=== PATIENT | male | born 1985 | race Caucasian/White ===

== ENCOUNTER 2016-11-03 11:18 | Inpatient (IN) | payer OTHER ==
[2016-11-03 11:33] VITALS: BMI 17.6
--- NOTE | 2016-11-03 14:54 | HP ---
COWS - Scale Resting Pulse: 2= MO 101-120 Sweatin= Chills/Flushing Restless Observation: 3= Extraneous Movement Pupil Size: 1= Pupils >than Normal Bone or Joint Aches: 1= Mild Discomfort Runny Nose/ Eye Tearin= Nasal Congestion GI Upset > 30mins: 1= Stomach Cramp Tremor Observation: 1= Tremor [place], Not Seen Yawning Observation: 0= None Anxiety or Irritability: 2=Irritable/Anxious Goose Flesh Skin: 0=Smooth Skin COWS Score: 13 CIWA Score - CIWA Score Nausea/Vomitin Muscle Tremors: 2 Anxiety: 4-Mod. Anxious/Guarded Agitation: 4-Moderately Restless Paroxysmal Sweats: 3 Orientation: 0-Oriented Tacttile Disturbances: 1-Very Mild Itch/Numbness Auditory Disturbances: 0-None Visual Disturbances: 0-None Headache: 0-None Present CIWA-Ar Total Score: 16 Admission ROS BHS - HPI Chief Complaint: I need to stop using heroin and i need help. Allergies/Adverse Reactions: Allergies Allergy/AdvReac Type Severity Reaction Status Date / Time No Known Allergies Allergy Verified 11/03/16 13:46 History of Present Illness: 30 y/o m pt with a h/o heroin and crack dep using klonopin daily seeking detox. Exam Limitations: No Limitations - Ebola screening Have you traveled outside of the country in the last 21 days: No Have you had contact with anyone from an Ebola affected area: No Have you been sick,other than usual withdrawal symptoms: No - Review of Systems Constitutional: Malaise, Night Sweats, Changes in sleep EENT: reports: Blurred Vision Respiratory: reports: No Symptoms reported Cardiac: reports: Palpitations GI: reports: Indigestion, Abdominal cramping : reports: No Symptoms Reported Musculoskeletal: reports: Muscle Pain Integumentary: reports: No Symptoms Reported Neuro: reports: Headache, Dizziness Endocrine: reports: No Symptoms Reported Hematology: reports: No Symptoms Reported Psychiatric: reports: Anxious Other Systems: Reviewed and Negative Patient History - Patient Medical History Hx Anemia: No Hx Asthma: Yes Hx Chronic Obstructive Pulmonary Disease (COPD): No Hx Cancer: No Hx Cardiac Disorders: No Hx Congestive Heart Failure: No Hx Hypertension: No Hx Hypercholesterolemia: No Hx Pacemaker: No HX Cerebrovascular Accident: No Hx Seizures: No Hx Dementia: No Hx Diabetes: No Hx Gastrointestinal Disorders: No Hx Liver Disease: No Hx Genitourinary Disorders: No Hx Sexually Transmitted Disorders: No Hx Renal Disease (ESRD): No Hx Thyroid Disease: No Hx Human Immunodeficiency Virus (HIV): No Hx Hepatitis C: No Hx Depression: No (anxiety ) Hx Suicide Attempt: No Hx Bipolar Disorder: No Hx Schizophrenia: No - Patient Surgical History Past Surgical History: No Hx Neurologic Surgery: No Hx Cataract Extraction: No Hx Cardiac Surgery: No Hx Lung Surgery: No Hx Breast Surgery: No Hx Breast Biopsy: No Hx Abdominal Surgery: No Hx Appendectomy: No Hx Cholecystectomy: No Hx Genitourinary Surgery: No Hx Section: No Hx Orthopedic Surgery: No Anesthesia Reaction: No - PPD History Previous Implant?: Yes Documented Results: Negative w/o proof Implanted On Prior R Admission?: No PPD to be Administered?: Yes - Reproductive History Patient is a Female of Child Bearing Age (11 -55 yrs old): No - Smoking Cessation Smoking history: Current every day smoker Have you smoked in the past 12 months: Yes Aproximately how many cigarettes per day: 10 Hx Chewing Tobacco Use: No Initiated information on smoking cessation: Yes 'Breaking Loose' booklet given: 11/03/16 - Substance & Tx. History Hx Alcohol Use: No Hx Substance Use: Yes Substance Use Type: Cocaine, Heroin Hx Substance Use Treatment: No - Substances Abused Heroin Route: Inhalation Frequency: Daily Amount used: 8 bags Age of first use: 26 Date of Last Use: 11/02/16 Crack Route: Smoking Frequency: Daily Amount used: $300 Age of first use: 18 Date of Last Use: 11/02/16 klonopin Route: Oral Frequency: Daily Amount used: 2mg Age of first use: 18 Date of Last Use: 11/02/16 Family Disease History - Family Disease History Family History: Denies Admission Physical Exam BHS - Vital Signs Vital Signs: Vital Signs - 24 hr 11/03/16 11:31 Temperature 96 F L Pulse Rate 112 H Respiratory 18 Rate Blood Pressure 130/90 30 y/o m pt anxious , redstless but cooperative with exam. - Physical General Appearance: Yes: Appropriately Dressed, Thin, Irritable, Anxious HEENTM: Yes: EOMI, Hearing grossly Normal, Normocephalic, Normal Voice, CLARA, Nasal Congestion Respiratory: Yes: Chest Non-Tender, Lungs Clear, Normal Breath Sounds, No Respiratory Distress Neck: Yes: Supple, Trachea in good position Breast: Yes: Within Normal Limits Cardiology: Yes: Regular Rhythm, Regular Rate, S1, S2 Abdominal: Yes: Non Tender, Flat, Soft, Increased Bowel Sounds Genitourinary: Yes: Within Normal Limits Back: Yes: Decreased Range of Motion Musculoskeletal: Yes: Back pain, Muscle Pain Extremities: Yes: Within Normal Limits Neurological: Yes: cot assembler II-XII NML intact, Fully Oriented, Alert, Motor Strength 5/5, Normal Response Integumentary: Yes: Moist Lymphatic: Yes: Within Normal Limits - Diagnostic (1) Opioid dependence with withdrawal Current Visit: Yes Status: Chronic (2) Crack cocaine use Current Visit: Yes Status: Acute (3) Benzodiazepine dependence Current Visit: Yes Status: Chronic (4) Cachexia Current Visit: Yes Status: Acute (5) Asthma Current Visit: Yes Status: Chronic Qualifiers: Asthma severity: mild intermittent Asthma complication type: uncomplicated Qualified Code(s): J45.20 - Mild intermittent asthma, uncomplicated (6) Nicotine dependence Current Visit: Yes Status: Chronic (7) Anxiety Current Visit: Yes Status: Chronic Cleared for Admission [facility] - Detox or Rehab [facility] Level of Care: Medically Managed Detox Regimen/Protocol: Methadone/Valium [facility] Breath Alcohol Content Breath Alcohol Content: 0 Urine Drug Screen - Results Drug Screen Negative: No Urine Drug Screen Results: AMINA-Cocaine, OPI-Opiates, MTD-Methadone, TCA- Tricyclic Antidepress, OXY-Oxycodone
[2016-11-03] MEDS ORDERED: IBUPROFEN 400 MG TABLET (FP) PO PRN (15:09)
[2016-11-03] MEDS ORDERED: MAGNESIUM HYDROX 2400MG/30ML ORAL SUSPENSION 30 ML CUP PO PRN (15:09)
[2016-11-03] MEDS ORDERED: guaiFENesin/D-METHORPHAN HB 10 ML UNIT-DOSE CUPS PO PRN (15:09)
[2016-11-03] MEDS ORDERED: MAG HYDROX/AL HYDROX/SIMETH 30 ML UNIT-DOSE CUP PO PRN (15:09)
[2016-11-03] MEDS ORDERED: MAGNESIUM CITRATE 300 ML BOTTLE PO PRN (15:09)
[2016-11-03] MEDS ORDERED: NICOTINE POLACRILEX 4 MG GUM BUC PRN (15:09)
[2016-11-03] MEDS ORDERED: P-EPHED 60MG/TRIPROLIDI 2.5MG TABLET PO PRN (15:09)
[2016-11-03] MEDS ORDERED: ACETAMINOPHEN 325 MG TABLET (FP) PO PRN (15:09)
[2016-11-03] MEDS ORDERED: diphenhydrAMINE HCL 50 MG CAPSULE PO PRN (15:09)
[2016-11-03] MEDS ORDERED: LOPERAMIDE HCL 2 MG CAPSULE PO PRN (15:09)
[2016-11-03] MEDS ORDERED: MENTHOL/PHENOL 1 EACH UD MM PRN (15:09)
[2016-11-03] MEDS ORDERED: ALBUTEROL SO4 6.7 GM HFA INHALER IH PRN (15:14)
[2016-11-03] MEDS ORDERED: METHADONE HCL 10 MG TABLET (FOR DETOX USE ONLY) PO ONE ×2 (15:41→23:00)
[2016-11-03] MEDS ORDERED: diazePAM 5 MG TABLET PO ONE (15:59)
[2016-11-03 17:46] LABS: URINE APPEARANCE CLEAR; URINE BILIRUBIN NEGATIVE (NEGATIVE); URINE BLOOD NEGATIVE (NEGATIVE); URINE COLOR YELLOW; URINE GLUCOSE (UA) NEGATIVE (NEGATIVE); URINE KETONE NEGATIVE (NEGATIVE); URINE LEUK ESTERASE NEGATIVE (NEGATIVE); URINE NITRITE NEGATIVE (NEGATIVE); URINE PROTEIN NEGATIVE (NEGATIVE); URINE UROBILINOGEN NEGATIVE E.U./dl (0.2-1.0)
[2016-11-03] MEDS: THIAMINE HCL 100 MG TABLET (FP) PO SCH (22:42)
[2016-11-03] MEDS: diazePAM 5 MG TABLET PO SCH (22:43)
[2016-11-04] MEDS: diazePAM 5 MG TABLET PO SCH ×3 (05:05→22:52)
[2016-11-04] MEDS ORDERED: METHADONE HCL 10 MG TABLET (FOR DETOX USE ONLY) PO SCH (10:00)
--- NOTE | 2016-11-04 10:07 | PN ---
S CIWA - CIWA Score Nausea/Vomitin Muscle Tremors: 3 Anxiety: 3 Agitation: 2 Paroxysmal Sweats: 1-Minimal Palms Moist Orientation: 0-Oriented Tacttile Disturbances: 1-Very Mild Itch/Numbness Auditory Disturbances: 1-Very Mild Visual Disturbances: 1-Very Mild Sensitivity Headache: 2-Mild CIWA-Ar Total Score: 17 BHS COWS - Scale Resting Pulse: 0= DC 80 or Below Sweatin=Flushed/Facial Moisture Restless Observation: 3= Extraneous Movement Pupil Size: 1= Pupils >than Normal Bone or Joint Aches: 2= Severe Diffuse Aches Runny Nose/ Eye Tearin= Runny Nose/Eyes GI Upset > 30mins: 3= Vomiting/Diarrhea Tremor Observation of Outstretched Hands: 2= Slight Tremor Visible Yawning Observation: 1= 1-2x During Session Anxiety or Irritability: 2=Irritable/Anxious Goose Flesh Skin: 0=Smooth Skin COWS Score: 18 S Progress Note (SOAP) Subjective: ALERT,IRRITABLE,ANXIOUS,INTERRUPTED SLEEP,TREMOR,PAIN IN THE BODY AND BACK Objective: 11/04/16 10:05 Vital Signs Temperature 97.7 F 11/04/16 06:17 Pulse Rate 78 11/04/16 06:17 Respiratory Rate 18 11/04/16 06:17 Blood Pressure 101/58 11/04/16 06:17 O2 Sat by Pulse Oximetry (%) EKG NSR Laboratory Last Values Urine Color Yellow 11/03/16 14:00 Urine Appearance Clear 11/03/16 14:00 Urine pH 5.0 (5.0-8.0) 11/03/16 14:00 Ur Specific [place] 1.027 (1.001-1.035) 11/03/16 14:00 Urine Protein Negative (NEGATIVE) 11/03/16 14:00 Urine Glucose (UA) Negative (NEGATIVE) 11/03/16 14:00 Urine Ketones Negative (NEGATIVE) 11/03/16 14:00 Urine Blood Negative (NEGATIVE) 11/03/16 14:00 Urine Nitrite Negative (NEGATIVE) 11/03/16 14:00 Urine Bilirubin Negative (NEGATIVE) 11/03/16 14:00 Urine Urobilinogen Negative E.U./dl (0.2-1.0) 11/03/16 14:00 Ur Leukocyte Esterase Negative (NEGATIVE) 11/03/16 14:00 LABS PENDING Assessment: 11/04/16 10:06 WITHDRAWAL SYMPTOM Plan: CONTINUE DETOX
[2016-11-04] MEDS: PRENATAL VITAMINS W/ FOLIC ACID TABLET (FP) PO SCH (10:59)
[2016-11-04] MEDS: diazePAM 5 MG TABLET PO PRN ×2 (10:59→17:25)
[2016-11-04 11:23] LABS: MCH 30.9 pg (25.7-33.7); MCHC 32.5 g/dl (32.0-35.9); MEAN CELL VOLUME 95.2 fl (80-96); MEAN PLT VOLUME 9.7 fl (7.5-11.1); PLATELET COUNT 173 K/MM3 (134-434); WHITE BLOOD COUNT 7.4 K/mm3 (4.0-10.0)
--- NOTE | 2016-11-04 11:27 | EKG ---
Test Reason : Blood Pressure : / mmHG Vent. Rate : 087 BPM Atrial Rate : 087 BPM P-R Int : 118 ms QRS Dur : 084 ms QT Int : 342 ms P-R-T Axes : 074 080 077 degrees QTc Int : 411 ms NORMAL SINUS RHYTHM NORMAL ECG NONSPECIFIC T WAVE ABNORMALITY NO PREVIOUS ECGS AVAILABLE Confirmed by ROBRET CHAPARRO MD ([id number]) on 11/04/2016 11:27:14 AM Referred By: Confirmed By:ROBERT CHAPARRO MD
[2016-11-04 11:35] LABS: ALBUMIN 3.9 g/dl (3.4-5.0); ANION GAP 8 (8-16); BILIRUBIN,TOTAL 0.3 mg/dL (0.2-1.0); CALCIUM 8.9 mg/dL (8.5-10.1); CO2 29 mmol/L (21-32); GLUCOSE,RANDOM 100 mg/dL (74-106); SGOT/AST 16 U/L (15-37); TOT PROT 7.1 g/dl (6.4-8.2)
[2016-11-04 11:38] LABS: ALK PHOS 102 U/L (45-117); COCKROFT - GAULT 112.61; CREATININE 0.8 mg/dL (0.7-1.3); SGPT/ALT 30 U/L (12-78)
[2016-11-04 12:05] LABS: HIV 1 & 2 AB NEGATIVE; HIV 1 AGp24 NEGATIVE
--- NOTE | 2016-11-04 16:34 | CONSULT ---
[facility] Psychiatric Consult - Data Date of interview: 11/04/16 Admission source: [facility] Identifying data: First admission to [facility] for this 30 y/o male seeking detox treatment on for heoin,cocaine and sedative/anxiolytic dependence (klonopin).Patient is single,a father of one,domiciled (lives with his mother),unemployed and dependent on relatives for financial support. Substance Abuse History: - Smoking Cessation. Smoking history: Current every day smoker. Have you smoked in the past 12 months: Yes. Aproximately how many cigarettes per day: 10. Hx Chewing Tobacco Use: No. Initiated information on smoking cessation: Yes. 'Breaking Loose' booklet given: 11/03/16. - Substance & Tx. History. Hx Alcohol Use: No. Hx Substance Use: Yes. Substance Use Type : Cocaine, Heroin. Hx Substance Use Treatment: No. - Substances Abused. Heroin. Route: Inhalation. Frequency: Daily. Amount used: 8 bags. Age of first use: 26. Date of Last Use: 11/02/16. Crack. Route: Smoking. Frequency: Daily. Amount used: $300. Age of first use: 18. Date of Last Use: 11/02/16. klonopin. Route: Oral. Frequency: Daily. Amount used: 2mg. Age of first use: 18. Date of Last Use: 11/02/16. Confirmed by patient. Medical History: Bronchial asthma. Psychiatric History: No history of psychiatric hospitalizations.Patient is prescribed seroquel 200 mg/hs by a private psychiatrist[place]in the [place],to address chronic insomnia.Mr Lopez denies history of suicide attempts.He states that he last took this dse of seroquel on 11/03/16. Physical/Sexual Abuse/Trauma History: Patient denies. Additional Comment: Urine Drug Screen Results: AMINA-Cocaine, OPI-Opiates, MTD- Methadone, TCA-Tricyclic Antidepressant, OXY-Oxycodone.Noted. Mental Status Exam - Mental Status Exam Alert and Oriented to: Time, Place, Person Cognitive Function: Good Patient Appearance: Well Groomed Mood: Hopeful, Euthymic Affect: Appropriate, Normal Range Patient Behavior: Fatigued, Appropriate, Cooperative Speech Pattern: Clear, Appropriate Voice Loudness: Normal Thought Process: Goal Oriented Thought Disorder: Not Present Hallucinations: Denies Suicidal Ideation: Denies Homicidal Ideation: Denies Insight/Judgement: Poor Sleep: Poorly, Difficulty falling asleep Appetite: Good Muscle strength/Tone: Normal Gait/Station: Normal Psychiatric Findings - Problem List ([place] 1, 2,3) (1) Opioid dependence with withdrawal Current Visit: Yes Status: Acute (2) Cocaine dependence Current Visit: Yes Status: Acute (3) Benzodiazepine dependence Current Visit: Yes Status: Acute (4) Nicotine dependence Current Visit: Yes Status: Acute (5) Substance induced mood disorder Current Visit: Yes Status: Acute (6) Asthma Current Visit: Yes Status: Chronic Qualifiers: Asthma severity: mild intermittent Asthma complication type: uncomplicated Qualified Code(s): J45.20 - Mild intermittent asthma, uncomplicated (7) Insomnia Current Visit: Yes Status: Acute - Initial Treatment Plan Initial Treatment Plan: Psychoeducation.Detoxification in progress.Medication : seroquel 100 mg po hs (reduced dose).Side effects/benefits discussed with the patient.Agrees with this careplan (verbally).Observation.Medications verified.Noted filled script for seroquel 200 mg/hs @ [facility] # [id number] on 10/27/16 from provider Mia Morel.No script needed at discharge from [facility].
[2016-11-04] MEDS: QUEtiapine FUMARATE 100 MG TABLET (FP) PO SCH (22:52)
[2016-11-04] MEDS: THIAMINE HCL 100 MG TABLET (FP) PO SCH (22:52)
[2016-11-05] MEDS: diazePAM 5 MG TABLET PO PRN (08:10)
[2016-11-05] MEDS: PRENATAL VITAMINS W/ FOLIC ACID TABLET (FP) PO SCH (11:25)
[2016-11-05] MEDS: diazePAM 5 MG TABLET PO SCH ×2 (11:25→22:38)
[2016-11-05] MEDS: METHADONE HCL 5 MG TABLET (FOR DETOX USE ONLY) PO SCH (11:26)
[2016-11-05] MEDS ORDERED: ONDANSETRON *ODT* 4 MG TABLET SL PRN (11:46)
--- NOTE | 2016-11-05 16:48 | PN ---
[facility] CIWA - CIWA Score Nausea/Vomitin-Mild Nausea/No Vomiting Muscle Tremors: 3 Anxiety: 3 Agitation: 2 Paroxysmal Sweats: 3 Orientation: 0-Oriented Tacttile Disturbances: 2-Mild Itch/Numbness/Burn Auditory Disturbances: 2-Mild Harshness/Frighten Visual Disturbances: 0-None Headache: 2-Mild CIWA-Ar Total Score: 18 BHS COWS - Scale Resting Pulse: 1= SC 81-100 Sweatin= Chills/Flushing Restless Observation: 1= Difficult to Sit Still Pupil Size: 0= Normal to Room Light Bone or Joint Aches: 2= Severe Diffuse Aches Runny Nose/ Eye Tearin= Nasal Congestion GI Upset > 30mins: 1= Stomach Cramp Tremor Observation of Outstretched Hands: 2= Slight Tremor Visible Yawning Observation: 1= 1-2x During Session Anxiety or Irritability: 2=Irritable/Anxious Goose Flesh Skin: 3=Piloerection COWS Score: 15 S Progress Note (SOAP) Subjective: Fatigue, H/A, Interrupted sleep, Cold sensation, sweating. Objective: PT. A & O X 3. 11/05/16 16:51 Vital Signs Temperature 98.2 F 11/05/16 14:25 Pulse Rate 93 H 11/05/16 14:25 Respiratory Rate 18 11/05/16 14:25 Blood Pressure 124/69 11/05/16 14:25 O2 Sat by Pulse Oximetry (%) Laboratory Last Values WBC 7.4 K/mm3 (4.0-10.0) 11/04/16 06:00 RBC 4.66 M/mm3 (4.00-5.60) 11/04/16 06:00 Hgb 14.4 GM/dL (11.7-16.9) 11/04/16 06:00 Hct 44.4 % (35.4-49) 11/04/16 06:00 MCV 95.2 fl (80-96) 11/04/16 06:00 MCHC 32.5 g/dl (32.0-35.9) 11/04/16 06:00 RDW 14.0 % (11.9-15.9) 11/04/16 06:00 Plt Count 173 K/MM3 (134-434) 11/04/16 06:00 MPV 9.7 fl (7.5-11.1) 11/04/16 06:00 Sodium 143 mmol/L (136-145) 11/04/16 06:00 Potassium 4.1 mmol/L (3.5-5.1) 11/04/16 06:00 Chloride 106 mmol/L (98-107) 11/04/16 06:00 Carbon Dioxide 29 mmol/L (21-32) 11/04/16 06:00 Anion Gap 8 (8-16) 11/04/16 06:00 BUN 11 mg/dL (7-18) 11/04/16 06:00 Creatinine 0.8 mg/dL (0.7-1.3) 11/04/16 06:00 Creat Clearance w eGFR > 60 (>60) 11/04/16 06:00 Random Glucose 100 mg/dL (74-106) 11/04/16 06:00 Calcium 8.9 mg/dL (8.5-10.1) 11/04/16 06:00 Total Bilirubin 0.3 mg/dL (0.2-1.0) 11/04/16 06:00 AST 16 U/L (15-37) 11/04/16 06:00 ALT 30 U/L (12-78) 11/04/16 06:00 Alkaline Phosphatase 102 U/L (45-117) 11/04/16 06:00 Total Protein 7.1 g/dl (6.4-8.2) 11/04/16 06:00 Albumin 3.9 g/dl (3.4-5.0) 11/04/16 06:00 Urine Color Yellow 11/03/16 14:00 Urine Appearance Clear 11/03/16 14:00 Urine pH 5.0 (5.0-8.0) 11/03/16 14:00 Ur Specific [place] 1.027 (1.001-1.035) 11/03/16 14:00 Urine Protein Negative (NEGATIVE) 11/03/16 14:00 Urine Glucose (UA) Negative (NEGATIVE) 11/03/16 14:00 Urine Ketones Negative (NEGATIVE) 11/03/16 14:00 Urine Blood Negative (NEGATIVE) 11/03/16 14:00 Urine Nitrite Negative (NEGATIVE) 11/03/16 14:00 Urine Bilirubin Negative (NEGATIVE) 11/03/16 14:00 Urine Urobilinogen Negative E.U./dl (0.2-1.0) 11/03/16 14:00 Ur Leukocyte Esterase Negative (NEGATIVE) 11/03/16 14:00 RPR Titer Nonreactive (NONREACTIVE) 11/04/16 06:00 HIV 1&2 Antibody Screen Negative 11/03/16 06:00 HIV P24 Antigen Negative 11/03/16 06:00 LABS NOTED. Assessment: 11/05/16 16:52 WITHDRAWAL SYMPTOMS. Plan: CONTINUE DETOX. ADVISED PATIENT TO FOLLOW-UP WITH ESTHETICIAN / REHAB MEDICAL PROVIDER AFTER DISCHARGE FROM DETOX FOR GENERAL MEDICAL ASSESSMENT AND FOR ABNORMAL ADMISSION LAB VALUES.
[2016-11-05] MEDS: QUEtiapine FUMARATE 100 MG TABLET (FP) PO SCH (22:38)
[2016-11-05] MEDS: THIAMINE HCL 100 MG TABLET (FP) PO SCH (22:38)
[2016-11-06] MEDS: diazePAM 5 MG TABLET PO SCH ×2 (10:56→22:30)
[2016-11-06] MEDS: PRENATAL VITAMINS W/ FOLIC ACID TABLET (FP) PO SCH (10:56)
[2016-11-06] MEDS: METHADONE HCL 5 MG TABLET (FOR DETOX USE ONLY) PO SCH (10:57)
--- NOTE | 2016-11-06 12:29 | PN ---
BHS Progress Note (SOAP) Subjective: Sweating,interrupted sleep,restless Objective: 11/06/16 12:28 Vital Signs - 8 hr 11/06/16 11/06/16 06:00 10:00 Temperature 97.9 F 97.5 F L Pulse Rate 81 107 H Respiratory 18 18 Rate Blood Pressure 103/58 108/60 Laboratory Tests 11/03/16 11/03/16 11/04/16 06:00 14:00 06:00 WBC 7.4 RBC 4.66 Hgb 14.4 Hct 44.4 MCV 95.2 MCHC 32.5 RDW 14.0 Plt Count 173 MPV 9.7 Sodium Potassium Chloride Carbon Dioxide Anion Gap BUN Creatinine Creat Clearance w eGFR Random Glucose Calcium Total Bilirubin AST ALT Alkaline Phosphatase Total Protein Albumin Urine Color Yellow Urine Appearance Clear Urine pH 5.0 Ur Specific [place] 1.027 Urine Protein Negative Urine Glucose (UA) Negative Urine Ketones Negative Urine Blood Negative Urine Nitrite Negative Urine Bilirubin Negative Urine Urobilinogen Negative Ur Leukocyte Esterase Negative RPR Titer HIV 1&2 Antibody Screen Negative HIV P24 Antigen Negative 11/04/16 11/04/16 06:00 06:00 WBC RBC Hgb Hct MCV MCHC RDW Plt Count MPV Sodium 143 Potassium 4.1 Chloride 106 Carbon Dioxide 29 Anion Gap 8 BUN 11 Creatinine 0.8 Creat Clearance w eGFR > 60 Random Glucose 100 Calcium 8.9 Total Bilirubin 0.3 AST 16 ALT 30 Alkaline Phosphatase 102 Total Protein 7.1 Albumin 3.9 Urine Color Urine Appearance Urine pH Ur Specific [place] Urine Protein Urine Glucose (UA) Urine Ketones Urine Blood Urine Nitrite Urine Bilirubin Urine Urobilinogen Ur Leukocyte Esterase RPR Titer Nonreactive HIV 1&2 Antibody Screen HIV P24 Antigen labs noted Assessment: 11/06/16 12:28 Withdrawal sx. Plan: Continue detox
[2016-11-06] MEDS: hydrOXYzine PAMOATE 25 MG CAPSULE (FP) PO PRN (19:28)
[2016-11-06] MEDS: QUEtiapine FUMARATE 100 MG TABLET (FP) PO SCH (22:30)
[2016-11-06] MEDS: THIAMINE HCL 100 MG TABLET (FP) PO SCH (22:30)
[2016-11-07] MEDS ORDERED: METHADONE HCL 10 MG TABLET (FOR DETOX USE ONLY) PO SCH (10:00)
[2016-11-07] MEDS ORDERED: diazePAM 5 MG TABLET PO SCH (10:00)
[2016-11-07] MEDS: PRENATAL VITAMINS W/ FOLIC ACID TABLET (FP) PO SCH (10:11)
--- NOTE | 2016-11-07 11:11 | PN ---
BHS Progress Note (SOAP) Subjective: sweats, shakes Objective: 11/07/16 11:08 Vital Signs Temperature 97.9 F 11/07/16 09:15 Pulse Rate 89 11/07/16 09:15 Respiratory Rate 20 11/07/16 09:15 Blood Pressure 104/74 11/07/16 09:15 O2 Sat by Pulse Oximetry (%) pt aox3 in nad lying in bed Assessment: 11/07/16 11:09 withdrawal sx's Plan: cont detox increase fluids d/c in am
[2016-11-07] MEDS: hydrOXYzine PAMOATE 25 MG CAPSULE (FP) PO PRN (17:35)
[2016-11-07] MEDS: THIAMINE HCL 100 MG TABLET (FP) PO SCH (22:21)
[2016-11-07] MEDS: QUEtiapine FUMARATE 100 MG TABLET (FP) PO SCH (22:21)
[2016-11-08] MEDS ORDERED: METHADONE HCL 5 MG TABLET (FOR DETOX USE ONLY) PO SCH (06:00)
[2016-11-08 06:56] VITALS: BP 89/59; PULSE 94; TEMP 98.1
--- NOTE | 2016-11-08 08:53 | DS ---
[facility] Detox Discharge Summary Admission Date: 11/03/16 Discharge Date: 11/08/16 - History Present History: Cannabis Dependence, Cocaine Dependence, Opioid Dependence, Sedative Dependence - Physical Exam Results Vital Signs: Vital Signs Temperature 98.1 F 11/08/16 06:55 Pulse Rate 94 H 11/08/16 06:55 Respiratory Rate 18 11/08/16 06:55 Blood Pressure 89/59 11/08/16 06:55 O2 Sat by Pulse Oximetry (%) - Treatment Hospital Course: Detox Protocol Followed, Detoxed Safely, Responded well, Discharged Condition Good, Rehab Referral Accepted - Medication Discharge Medications: Ambulatory Orders Albuterol Sulfate Inhaler - [Ventolin Hfa Inhaler -] 2 inh IH Q4H PRN 11/03/16 Clonazepam [Klonopin] 1 mg PO BID 11/03/16 Quetiapine Fumarate [Seroquel -] 200 mg PO HS 11/03/16 - Diagnosis (1) Benzodiazepine dependence Current Visit: Yes Status: Chronic (2) Cachexia Current Visit: Yes Status: Chronic (3) Cocaine dependence Current Visit: Yes Status: Chronic Qualifiers: Substance use status: uncomplicated Qualified Code(s): F14.20 - Cocaine dependence, uncomplicated (4) Crack cocaine use Current Visit: Yes Status: Chronic (5) Insomnia Current Visit: Yes Status: Acute (6) Nicotine dependence Current Visit: Yes Status: Chronic Qualifiers: Nicotine product type: cigarettes Substance use status: uncomplicated Qualified Code(s): F17.210 - Nicotine dependence, cigarettes, uncomplicated (7) Opioid dependence with withdrawal Current Visit: Yes Status: Chronic (8) Substance induced mood disorder Current Visit: Yes Status: Chronic (9) Anxiety Current Visit: Yes Status: Chronic (10) Asthma Current Visit: Yes Status: Chronic Qualifiers: Asthma severity: mild intermittent Asthma complication type: uncomplicated Qualified Code(s): J45.20 - Mild intermittent asthma, uncomplicated - AMA Did Patient Leave Against Medical Advice: No
== END 2016-11-08 09:19 | disposition home or self-care (01) | DRG 773 ==
LOC: YASAS 11:18 → Y6N 14:47
PROVIDERS: ADMIT Internal Medicine Addiction Medicine; ATTEND Internal Medicine Addiction Medicine
PROC: HZ2ZZZZ Detoxification Services for Substance Abuse Treatment (ICD-10-PCS; principal; 2016-11-08)
DX: F11.23 Opioid dependence with withdrawal (principal); F13.230 Sedative, hypnotic or anxiolytic dependence with withdrawal, uncomplicated; F14.20 Cocaine dependence, uncomplicated; F17.210 Nicotine dependence, cigarettes, uncomplicated; F19.24 Other psychoactive substance dependence with psychoactive substance-induced mood disorder; F41.9 Anxiety disorder, unspecified; J45.20 Mild intermittent asthma, uncomplicated; G47.00 Insomnia, unspecified; R64 Cachexia
CPT/HCPCS: 36415; 80053; 81003; 85027; 86593; 87389; 93005; 93010

== ENCOUNTER 2017-10-27 12:14 | Inpatient (IN) | payer OTHER ==
[2017-10-27 16:00] VITALS: BMI 16.8
[2017-10-27] MEDS ORDERED: IBUPROFEN 400 MG TABLET (FP) PO PRN (16:32)
[2017-10-27] MEDS ORDERED: MAG HYDROX/AL HYDROX/SIMETH 30 ML UNIT-DOSE CUP PO PRN (16:32)
[2017-10-27] MEDS ORDERED: ACETAMINOPHEN 325 MG TABLET (FP) PO PRN (16:32)
[2017-10-27] MEDS ORDERED: P-EPHED 60MG/TRIPROLIDI 2.5MG TABLET PO PRN (16:32)
[2017-10-27] MEDS ORDERED: MENTHOL/PHENOL 1 EACH UD MM PRN (16:32)
[2017-10-27] MEDS ORDERED: hydrOXYzine PAMOATE 50 MG CAPSULE (FP) PO PRN (16:32)
[2017-10-27] MEDS ORDERED: NICOTINE POLACRILEX 2 MG GUM BC PRN (16:32)
[2017-10-27] MEDS ORDERED: MAGNESIUM CITRATE 300 ML BOTTLE PO PRN (16:32)
[2017-10-27] MEDS ORDERED: guaiFENesin/D-METHORPHAN HB 10 ML UNIT-DOSE CUPS PO PRN (16:32)
[2017-10-27] MEDS ORDERED: MAGNESIUM HYDROX 2400MG/30ML ORAL SUSPENSION 30 ML CUP PO PRN (16:32)
[2017-10-27] MEDS ORDERED: LOPERAMIDE HCL 2 MG CAPSULE PO PRN (16:32)
--- NOTE | 2017-10-27 16:32 | HP ---
COWS - Scale Resting Pulse: 1= [place] 81-100 Sweatin= Chills/Flushing Restless Observation: 1= Difficult to Sit Still Pupil Size: 1= Pupils >than Normal Bone or Joint Aches: 1= Mild Discomfort Runny Nose/ Eye Tearin= Nasal Congestion GI Upset > 30mins: 2= Nausea/Diarrhea Tremor Observation: 1= Tremor [place], Not Seen Yawning Observation: 1= 1-2x During Session Anxiety or Irritability: 2=Irritable/Anxious Goose Flesh Skin: 0=Smooth Skin COWS Score: 12 CIWA Score - CIWA Score Nausea/Vomitin-Mild Nausea/No Vomiting Muscle Tremors: 1-None Visible, but [place] Anxiety: 1-Mildly Anxious Agitation: 1-Slight > Activity Paroxysmal Sweats: 1-Minimal Palms Moist Orientation: 0-Oriented Tacttile Disturbances: 0-None Auditory Disturbances: 0-None Visual Disturbances: 0-None Headache: 0-None Present CIWA-Ar Total Score: 5 Admission ROS BHS - HPI Chief Complaint: heroin and benzodiazepien withdrawal sx Allergies/Adverse Reactions: Allergies Allergy/AdvReac Type Severity Reaction Status Date / Time No Known Allergies Allergy Verified 10/27/17 16:36 History of Present Illness: 31 yo m on OTP at [facility], ldm 20mg 10/24 was adminsitratively discharged from program and was suppposed to be transferred butnever went and has been using heroin daily , sniffs, no idu, prescription for benzodiazepines. denies seizures, alcohol use, or DTs. PMHX depression,a nxiety andinsomnai, smokes 1PPD, smokes $50 crack cocaine daily. Thirsty. no h/o od, no hep c recetntly tested Exam Limitations: No Limitations - Ebola screening Have you traveled outside of the country in the last 21 days: No (N) Have you had contact with anyone from an Ebola affected area: No Have you been sick,other than usual withdrawal symptoms: No Do you have a fever: No - Review of Systems Constitutional: Chills, Diaphoresis, Night Sweats, Changes in sleep, Weakness, Unintentional Wgt. Loss EENT: reports: Tearing, Nose Congestion Respiratory: reports: No Symptoms reported Cardiac: reports: No Symptoms Reported GI: reports: Blood Streaked Bowels, Nausea, Poor Appetite, Indigestion, Abdominal cramping : reports: No Symptoms Reported Musculoskeletal: reports: Back Pain, Joint Pain, Muscle Pain, Neck Pain, Other ( pain where left arm pinced nerve) Integumentary: reports: Flushing, Sweating Neuro: reports: Numbness, Paresthesia, Tremors Endocrine: reports: Increased Thirst Hematology: reports: No Symptoms Reported Psychiatric: reports: Judgement Intact, Mood/Affect Appropiate, Orientated x3, Anxious, Depressed Other Systems: Reviewed and Negative Patient History - Patient Medical History Hx Anemia: No Hx Asthma: Yes (uses albuterol inhaler) Hx Chronic Obstructive Pulmonary Disease (COPD): No Hx Cancer: No Hx Cardiac Disorders: No Hx Congestive Heart Failure: No Hx Hypertension: No Hx Hypercholesterolemia: No Hx Pacemaker: No HX Cerebrovascular Accident: No Hx Seizures: No Hx Dementia: No Hx Diabetes: No Hx Gastrointestinal Disorders: No Hx Liver Disease: No Hx Genitourinary Disorders: No Hx Sexually Transmitted Disorders: No Hx Renal Disease (ESRD): No Hx Thyroid Disease: No Hx Human Immunodeficiency Virus (HIV): No Hx Hepatitis C: No Hx Depression: No (anxiety ) Hx Suicide Attempt: No Hx Bipolar Disorder: No Hx Schizophrenia: No - Patient Surgical History Past Surgical History: No Hx Neurologic Surgery: No Hx Cataract Extraction: No Hx Cardiac Surgery: No Hx Lung Surgery: No Hx Breast Surgery: No Hx Breast Biopsy: No Hx Abdominal Surgery: No Hx Appendectomy: No Hx Cholecystectomy: No Hx Genitourinary Surgery: No Hx Section: No Hx Orthopedic Surgery: No Anesthesia Reaction: No - PPD History Previous Implant?: Yes Documented Results: Negative w/proof Implanted On Prior [facility] Admission?: Yes Date: 11/05/16 PPD to be Administered?: Yes - Reproductive History Patient is a Female of Child Bearing Age (11 -55 yrs old): No Patient : No - Smoking Cessation Smoking history: Current every day smoker Have you smoked in the past 12 months: Yes Aproximately how many cigarettes per day: 20 Hx Chewing Tobacco Use: No Initiated information on smoking cessation: Yes 'Breaking Loose' booklet given: 10/27/17 - Substance & Tx. History Hx Alcohol Use: No Hx Substance Use: Yes Substance Use Type: Cocaine, Heroin, Opiates, Prescribed, Tranquilizers Hx Substance Use Treatment: Yes (OTP, administrative detox, prior [facility] admission) - Substances Abused Heroin Route: Inhalation Frequency: Daily Amount used: 1-2 baqs Age of first use: 20 Date of Last Use: 10/26/17 Crack Route: Smoking Frequency: Daily Amount used: $50 Age of first use: 20 Date of Last Use: 10/26/17 Family Disease History - Family Disease History Family History: Denies Admission Physical Exam S - Vital Signs Vital Signs: Vital Signs - 24 hr 10/27/17 15:55 Temperature 97.4 F L Pulse Rate 102 H Respiratory 20 Rate Blood Pressure 134/74 - Physical General Appearance: Yes: Nourished, Appropriately Dressed, Disheveled, Mild Distress, Thin, Tremorous, Irritable, Sweating, Anxious HEENTM: Yes: EOMI, Hearing grossly Normal, Normal ENT Inspection, Normocephalic , Normal Voice, CLARA, Pharynx Normal, Nasal Congestion, Rhinorrhea Respiratory: Yes: Within Normal Limits, Chest Non-Tender, Lungs Clear, Normal Breath Sounds, No Respiratory Distress Neck: Yes: Within Normal Limits, No masses,lesions,Nodules, Supple, Trachea in good position Breast: Yes: Breast Exam Deferred Cardiology: Yes: Within Normal Limits, Regular Rhythm, Regular Rate, S1, S2 Abdominal: Yes: Within Normal Limits, Normal Bowel Sounds, Non Tender, Flat, Soft, Increased Bowel Sounds Genitourinary: Yes: Within Normal Limits Back: Yes: Normal Inspection, Muscle Spasm Musculoskeletal: Yes: full range of Motion, Gait Steady, Pelvis Stable, Back pain Extremities: Yes: Normal Capillary Refill, Normal Inspection, Normal Range of Motion, Tremors, Other (numbness and tingling left arm) 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 NML intact, Fully Oriented, Alert, Motor Strength 5/5, Normal Response, Depressed Affect Integumentary: Yes: Diaphoresis, Moist Lymphatic: Yes: Within Normal Limits - Diagnostic (1) Dehydration Current Visit: Yes Status: Acute (2) Insomnia Current Visit: No Status: Acute (3) Anxiety Current Visit: No Status: Chronic (4) Asthma Current Visit: No Status: Chronic Qualifiers: Asthma severity: mild intermittent Asthma complication type: uncomplicated Qualified Code(s): J45.20 - Mild intermittent asthma, uncomplicated (5) Benzodiazepine dependence Current Visit: No Status: Chronic (6) Cachexia Current Visit: No Status: Chronic (7) Cocaine dependence Current Visit: No Status: Chronic Qualifiers: Substance use status: uncomplicated Qualified Code(s): F14.20 - Cocaine dependence, uncomplicated (8) Nicotine dependence Current Visit: No Status: Chronic Qualifiers: Nicotine product type: cigarettes Substance use status: uncomplicated Qualified Code(s): F17.210 - Nicotine dependence, cigarettes, uncomplicated (9) Opioid dependence with withdrawal Current Visit: No Status: Chronic (10) Substance induced mood disorder Current Visit: No Status: Chronic Cleared for Admission [facility] - Detox or Rehab [facility] Level of Care: Medically Managed Detox Regimen/Protocol: Methadone/Valium S Breath Alcohol Content Breath Alcohol Content: 0 Urine Drug Screen - Results Drug Screen Negative: No Urine Drug Screen Results: AMINA-Cocaine, OPI-Opiates, MTD-Methadone
[2017-10-27] MEDS ORDERED: ALBUTEROL SO4 18 GM HFA INHALER IH PRN (16:35)
[2017-10-27] MEDS ORDERED: METHADONE HCL 10 MG TABLET (FOR DETOX USE ONLY) PO ONE ×2 (17:30→23:00)
[2017-10-27] MEDS ORDERED: diazePAM 5 MG TABLET PO ONE (17:30)
[2017-10-27] MEDS: PANTOPRAZOLE 40 MG TABLET (FP) PO SCH (18:18)
[2017-10-27] MEDS: NICOTINE 21 MG/24 HOURS TOPICAL PATCH TD SCH (18:19)
[2017-10-27 20:16] LABS: URINE APPEARANCE CLEAR; URINE BILIRUBIN NEGATIVE (<2.0 mg/dL); URINE BLOOD NEGATIVE (NEGATIVE); URINE COLOR AMBER; URINE GLUCOSE (UA) NEGATIVE (NEGATIVE); URINE KETONE TRACE (NEGATIVE); URINE LEUK ESTERASE NEGATIVE (NEGATIVE); URINE NITRITE NEGATIVE (NEGATIVE); URINE PROTEIN NEGATIVE (NEGATIVE); URINE UROBILINOGEN 4.0 E.U/dl mg/dL (0.2-1.0)
[2017-10-27] MEDS: diazePAM 5 MG TABLET PO SCH (22:21)
[2017-10-27] MEDS: NAPROXEN 500 MG TABLET (FP) PO SCH (22:21)
[2017-10-27] MEDS: GABAPENTIN 100 MG CAPSULE (FP) PO SCH (22:21)
[2017-10-27] MEDS: THIAMINE HCL 100 MG TABLET (FP) PO SCH (22:21)
[2017-10-28] MEDS: GABAPENTIN 100 MG CAPSULE (FP) PO SCH ×3 (05:45→22:32)
[2017-10-28] MEDS: diazePAM 5 MG TABLET PO SCH ×3 (05:46→22:31)
[2017-10-28] MEDS ORDERED: METHADONE HCL 10 MG TABLET (FOR DETOX USE ONLY) PO SCH (10:00)
[2017-10-28 10:27] LABS: HEMATOCRIT 40.1 % (35.4-49); HEMOGLOBIN 13.4 GM/dL (11.7-16.9); MCH 31.9 pg (25.7-33.7); MCHC 33.3 g/dl (32.0-35.9); MEAN CELL VOLUME 95.9 fl (80-96); MEAN PLT VOLUME 9.8 fl (7.5-11.1); PLATELET COUNT 153 K/MM3 (134-434); RBC 4.19 M/mm3 (4.00-5.60); RDW 14.2 % (11.9-15.9); WHITE BLOOD COUNT 8.5 K/mm3 (4.0-10.0)
[2017-10-28 10:43] LABS: ALBUMIN 3.4 g/dl (3.4-5.0); ANION GAP 5 (8-16); BLOOD UREA NITROGEN 14 mg/dL (7-18); CALCIUM 8.5 mg/dL (8.5-10.1); CHLORIDE 109 mmol/L (98-107); CO2 28 mmol/L (21-32); SODIUM 142 mmol/L (136-145)
[2017-10-28 10:49] LABS: ALK PHOS 55 U/L (45-117); BILIRUBIN,TOTAL 0.3 mg/dL (0.2-1.0); CREATININE 0.8 mg/dL (0.7-1.3); GLUCOSE,RANDOM 82 mg/dL (74-106); SGOT/AST 14 U/L (15-37); SGPT/ALT 15 U/L (12-78); TOT PROT 5.6 g/dl (6.4-8.2)
[2017-10-28] MEDS: PANTOPRAZOLE 40 MG TABLET (FP) PO SCH (11:01)
[2017-10-28] MEDS: NICOTINE 21 MG/24 HOURS TOPICAL PATCH TD SCH (11:01)
[2017-10-28] MEDS: PRENATAL VITAMINS W/ FOLIC ACID TABLET (FP) PO SCH (11:01)
[2017-10-28] MEDS: NAPROXEN 500 MG TABLET (FP) PO SCH ×2 (11:01→22:31)
[2017-10-28] MEDS: diazePAM 5 MG TABLET PO PRN ×2 (11:01→17:31)
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
--- NOTE | 2017-10-28 18:21 | PN ---
[facility] CIWA - CIWA Score Nausea/Vomitin-No Nausea/No Vomiting Muscle Tremors: None Anxiety: 5 Agitation: 5 Paroxysmal Sweats: 2 Orientation: 0-Oriented Tacttile Disturbances: 3-Moderate Itch/Numb/Burn Auditory Disturbances: 2-Mild Harshness/Frighten Visual Disturbances: 1-Very Mild Sensitivity Headache: 0-None Present CIWA-Ar Total Score: 18 BHS COWS - Scale Resting Pulse: 2= [place] 101-120 Sweatin= Chills/Flushing Restless Observation: 1= Difficult to Sit Still Pupil Size: 0= Normal to Room Light Bone or Joint Aches: 2= Severe Diffuse Aches Runny Nose/ Eye Tearin= None GI Upset > 30mins: 1= Stomach Cramp Tremor Observation of Outstretched Hands: 0= None Yawning Observation: 1= 1-2x During Session Anxiety or Irritability: 4=Extreme Anxiety Goose Flesh Skin: 3=Piloerection COWS Score: 15 BHS Progress Note (SOAP) Subjective: Anxious, Agitated, Sweating, Interrupted Sleep. Objective: PATIENT A & O X 3, OBSERVED AMBULATING ON UNIT. NO ACUTE DISTRESS. 10/28/17 18:19 Vital Signs Temperature 97.4 F L 10/28/17 18:06 Pulse Rate 88 10/28/17 18:06 Respiratory Rate 16 10/28/17 18:06 Blood Pressure 111/67 10/28/17 18:06 O2 Sat by Pulse Oximetry (%) Laboratory Tests 10/27/17 10/28/17 10/28/17 18:40 07:50 07:50 WBC 8.5 RBC 4.19 Hgb 13.4 Hct 40.1 MCV 95.9 MCH 31.9 MCHC 33.3 RDW 14.2 Plt Count 153 MPV 9.8 Sodium 142 Potassium 4.0 Chloride 109 H Carbon Dioxide 28 Anion Gap 5 L BUN 14 D Creatinine 0.8 Creat Clearance w eGFR > 60 Random Glucose 82 Calcium 8.5 Total Bilirubin 0.3 AST 14 L ALT 15 D Alkaline Phosphatase 55 D Total Protein 5.6 L D Albumin 3.4 Urine Color Tanya Urine Appearance Clear Urine pH 5.0 Ur Specific [place] 1.021 Urine Protein Negative Urine Glucose (UA) Negative Urine Ketones Trace H Urine Blood Negative Urine Nitrite Negative Urine Bilirubin Negative Urine Urobilinogen 4.0 e.u/dl Ur Leukocyte Esterase Negative RPR Titer 10/28/17 07:50 WBC RBC Hgb Hct MCV MCH MCHC RDW Plt Count MPV Sodium Potassium Chloride Carbon Dioxide Anion Gap BUN Creatinine Creat Clearance w eGFR Random Glucose Calcium Total Bilirubin AST ALT Alkaline Phosphatase Total Protein Albumin Urine Color Urine Appearance Urine pH Ur Specific [place] Urine Protein Urine Glucose (UA) Urine Ketones Urine Blood Urine Nitrite Urine Bilirubin Urine Urobilinogen Ur Leukocyte Esterase RPR Titer Nonreactive LABS NOTED. Assessment: 10/28/17 18:20 WITHDRAWAL SYMPTOMS. Plan: CONTINUE DETOX. INCREASE DAILY PO FLUID INTAKE.
[2017-10-28] MEDS: THIAMINE HCL 100 MG TABLET (FP) PO SCH (22:31)
[2017-10-28] MEDS: QUEtiapine FUMARATE 100 MG TABLET (FP) PO SCH (22:31)
[2017-10-28] MEDS: MELATONIN 5 MG TABLETS PO PRN (22:32)
[2017-10-29] MEDS: diazePAM 5 MG TABLET PO PRN (06:15)
[2017-10-29] MEDS: GABAPENTIN 100 MG CAPSULE (FP) PO SCH ×3 (06:15→22:40)
[2017-10-29] MEDS: METHADONE HCL 5 MG TABLET (FOR DETOX USE ONLY) PO SCH (10:13)
[2017-10-29] MEDS: NAPROXEN 500 MG TABLET (FP) PO SCH ×2 (10:13→22:40)
[2017-10-29] MEDS: PANTOPRAZOLE 40 MG TABLET (FP) PO SCH (10:14)
[2017-10-29] MEDS: PRENATAL VITAMINS W/ FOLIC ACID TABLET (FP) PO SCH (10:14)
[2017-10-29] MEDS: NICOTINE 21 MG/24 HOURS TOPICAL PATCH TD SCH (10:14)
[2017-10-29] MEDS: diazePAM 5 MG TABLET PO SCH ×2 (10:14→22:40)
--- NOTE | 2017-10-29 12:45 | PN ---
[facility] CIWA - CIWA Score Nausea/Vomitin-No Nausea/No Vomiting Muscle Tremors: 4-Moderate,w/Arms Extend Anxiety: 3 Agitation: 4-Moderately Restless Paroxysmal Sweats: 3 Orientation: 0-Oriented Tacttile Disturbances: 0-None Auditory Disturbances: 0-None Visual Disturbances: 0-None Headache: 1-Very Mild CIWA-Ar Total Score: 15 S COWS - Scale Resting Pulse: 0= [place] 80 or Below Sweatin=Flushed/Facial Moisture Restless Observation: 1= Difficult to Sit Still Pupil Size: 0= Normal to Room Light Bone or Joint Aches: 1= Mild Discomfort Runny Nose/ Eye Tearin= Runny Nose/Eyes GI Upset > 30mins: 0= None Tremor Observation of Outstretched Hands: 2= Slight Tremor Visible Yawning Observation: 2= >3x During Session Anxiety or Irritability: 2=Irritable/Anxious Goose Flesh Skin: 0=Smooth Skin COWS Score: 12 S Progress Note (SOAP) Subjective: irritable sleep agitation anxiety sweats body aches Objective: 10/29/17 12:44 Vital Signs Temperature 96.8 F L 10/29/17 06:26 Pulse Rate 80 10/29/17 06:26 Respiratory Rate 16 10/29/17 06:26 Blood Pressure 105/61 10/29/17 06:26 O2 Sat by Pulse Oximetry (%) Laboratory Tests 10/27/17 10/28/17 10/28/17 18:40 07:50 07:50 WBC 8.5 RBC 4.19 Hgb 13.4 Hct 40.1 MCV 95.9 MCH 31.9 MCHC 33.3 RDW 14.2 Plt Count 153 MPV 9.8 Sodium 142 Potassium 4.0 Chloride 109 H Carbon Dioxide 28 Anion Gap 5 L BUN 14 D Creatinine 0.8 Creat Clearance w eGFR > 60 Random Glucose 82 Calcium 8.5 Total Bilirubin 0.3 AST 14 L ALT 15 D Alkaline Phosphatase 55 D Total Protein 5.6 L D Albumin 3.4 Urine Color Tanya Urine Appearance Clear Urine pH 5.0 Ur Specific [place] 1.021 Urine Protein Negative Urine Glucose (UA) Negative Urine Ketones Trace H Urine Blood Negative Urine Nitrite Negative Urine Bilirubin Negative Urine Urobilinogen 4.0 e.u/dl Ur Leukocyte Esterase Negative RPR Titer 10/28/17 07:50 WBC RBC Hgb Hct MCV MCH MCHC RDW Plt Count MPV Sodium Potassium Chloride Carbon Dioxide Anion Gap BUN Creatinine Creat Clearance w eGFR Random Glucose Calcium Total Bilirubin AST ALT Alkaline Phosphatase Total Protein Albumin Urine Color Urine Appearance Urine pH Ur Specific [place] Urine Protein Urine Glucose (UA) Urine Ketones Urine Blood Urine Nitrite Urine Bilirubin Urine Urobilinogen Ur Leukocyte Esterase RPR Titer Nonreactive aaox3 ambulating no acute distress Assessment: 10/29/17 12:44 withdrawal sx Plan: continue detox increase fluids
[2017-10-29] MEDS: QUEtiapine FUMARATE 100 MG TABLET (FP) PO SCH (22:40)
[2017-10-29] MEDS: THIAMINE HCL 100 MG TABLET (FP) PO SCH (22:40)
[2017-10-30] MEDS: diazePAM 5 MG TABLET PO PRN (05:53)
[2017-10-30] MEDS: GABAPENTIN 100 MG CAPSULE (FP) PO SCH ×3 (05:53→22:06)
[2017-10-30] MEDS: diazePAM 5 MG TABLET PO SCH ×2 (10:44→22:06)
[2017-10-30] MEDS: PANTOPRAZOLE 40 MG TABLET (FP) PO SCH (10:44)
[2017-10-30] MEDS: NAPROXEN 500 MG TABLET (FP) PO SCH ×2 (10:44→22:06)
[2017-10-30] MEDS: PRENATAL VITAMINS W/ FOLIC ACID TABLET (FP) PO SCH (10:44)
[2017-10-30] MEDS: METHADONE HCL 5 MG TABLET (FOR DETOX USE ONLY) PO SCH (10:45)
[2017-10-30] MEDS: NICOTINE 21 MG/24 HOURS TOPICAL PATCH TD SCH (10:45)
--- NOTE | 2017-10-30 12:42 | EKG ---
Test Reason : Blood Pressure : / mmHG Vent. Rate : 080 BPM Atrial Rate : 080 BPM P-R Int : 122 ms QRS Dur : 082 ms QT Int : 378 ms P-R-T Axes : 082 085 086 degrees QTc Int : 435 ms NORMAL SINUS RHYTHM NORMAL ECG WHEN COMPARED WITH ECG OF 27-OCT-2017 18:30, NO SIGNIFICANT CHANGE WAS FOUND Confirmed by RUBIO THOMPSON MD ([id number]) on 10/30/2017 12:42:17 PM Referred By: Confirmed By:RUBIO THOMPSON MD
--- NOTE | 2017-10-30 12:43 | EKG ---
Test Reason : Blood Pressure : / mmHG Vent. Rate : 105 BPM Atrial Rate : 105 BPM P-R Int : 114 ms QRS Dur : 078 ms QT Int : 336 ms P-R-T Axes : 077 084 085 degrees QTc Int : 444 ms SINUS TACHYCARDIA OTHERWISE NORMAL ECG WHEN COMPARED WITH ECG OF 03-NOV-2016 14:57, NO SIGNIFICANT CHANGE WAS FOUND Confirmed by RUBIO THOMPSON MD ([id number]) on 10/30/2017 12:43:15 PM Referred By: Confirmed By:RUBIO THOMPSON MD
--- NOTE | 2017-10-30 14:48 | PN ---
BHS Progress Note (SOAP) Subjective: Constipation, Body Aches, Sweating, Fatigue. Objective: PATIENT A & O X 3. NO ACUTE DISTRESS. 10/30/17 14:46 Vital Signs Temperature 97.7 F 10/30/17 14:12 Pulse Rate 91 H 10/30/17 14:12 Respiratory Rate 18 10/30/17 14:12 Blood Pressure 131/81 10/30/17 14:12 O2 Sat by Pulse Oximetry (%) Laboratory Tests 10/27/17 10/28/17 10/28/17 18:40 07:50 07:50 WBC 8.5 RBC 4.19 Hgb 13.4 Hct 40.1 MCV 95.9 MCH 31.9 MCHC 33.3 RDW 14.2 Plt Count 153 MPV 9.8 Sodium 142 Potassium 4.0 Chloride 109 H Carbon Dioxide 28 Anion Gap 5 L BUN 14 D Creatinine 0.8 Creat Clearance w eGFR > 60 Random Glucose 82 Calcium 8.5 Total Bilirubin 0.3 AST 14 L ALT 15 D Alkaline Phosphatase 55 D Total Protein 5.6 L D Albumin 3.4 Urine Color Tanya Urine Appearance Clear Urine pH 5.0 Ur Specific [place] 1.021 Urine Protein Negative Urine Glucose (UA) Negative Urine Ketones Trace H Urine Blood Negative Urine Nitrite Negative Urine Bilirubin Negative Urine Urobilinogen 4.0 e.u/dl Ur Leukocyte Esterase Negative RPR Titer 10/28/17 07:50 WBC RBC Hgb Hct MCV MCH MCHC RDW Plt Count MPV Sodium Potassium Chloride Carbon Dioxide Anion Gap BUN Creatinine Creat Clearance w eGFR Random Glucose Calcium Total Bilirubin AST ALT Alkaline Phosphatase Total Protein Albumin Urine Color Urine Appearance Urine pH Ur Specific [place] Urine Protein Urine Glucose (UA) Urine Ketones Urine Blood Urine Nitrite Urine Bilirubin Urine Urobilinogen Ur Leukocyte Esterase RPR Titer Nonreactive LABS NOTED. Assessment: 10/30/17 14:47 WITHDRAWAL SYMPTOMS. Plan: CONTINUE DETOX. INCREASE DAILY PO FLUID INTAKE. PRN [place] FOR CONSTIPATION (PATIENT REPORTS NO EFFECT FROM PREVIOUS MOM).
[2017-10-30] MEDS: QUEtiapine FUMARATE 100 MG TABLET (FP) PO SCH (22:06)
[2017-10-30] MEDS: THIAMINE HCL 100 MG TABLET (FP) PO SCH (22:06)
[2017-10-31] MEDS: GABAPENTIN 100 MG CAPSULE (FP) PO SCH ×3 (05:34→22:10)
[2017-10-31] MEDS ORDERED: METHADONE HCL 10 MG TABLET (FOR DETOX USE ONLY) PO SCH (10:00)
[2017-10-31] MEDS ORDERED: diazePAM 5 MG TABLET PO SCH (10:00)
[2017-10-31] MEDS: PRENATAL VITAMINS W/ FOLIC ACID TABLET (FP) PO SCH (10:38)
[2017-10-31] MEDS: PANTOPRAZOLE 40 MG TABLET (FP) PO SCH (10:38)
[2017-10-31] MEDS: NAPROXEN 500 MG TABLET (FP) PO SCH ×2 (10:38→22:10)
[2017-10-31] MEDS: NICOTINE 21 MG/24 HOURS TOPICAL PATCH TD SCH (10:39)
--- NOTE | 2017-10-31 12:00 | PN ---
BHS Progress Note (SOAP) Subjective: Anxious, Sweating. Objective: PATIENT A & O X 3. NO ACUTE DISTRESS. 10/31/17 11:56 Vital Signs Temperature 96.2 F L 10/31/17 09:13 Pulse Rate 84 10/31/17 09:13 Respiratory Rate 18 10/31/17 09:13 Blood Pressure 100/53 10/31/17 09:13 O2 Sat by Pulse Oximetry (%) Laboratory Tests 10/27/17 10/28/17 10/28/17 18:40 07:50 07:50 WBC 8.5 RBC 4.19 Hgb 13.4 Hct 40.1 MCV 95.9 MCH 31.9 MCHC 33.3 RDW 14.2 Plt Count 153 MPV 9.8 Sodium 142 Potassium 4.0 Chloride 109 H Carbon Dioxide 28 Anion Gap 5 L BUN 14 D Creatinine 0.8 Creat Clearance w eGFR > 60 Random Glucose 82 Calcium 8.5 Total Bilirubin 0.3 AST 14 L ALT 15 D Alkaline Phosphatase 55 D Total Protein 5.6 L D Albumin 3.4 Urine Color Tanya Urine Appearance Clear Urine pH 5.0 Ur Specific [place] 1.021 Urine Protein Negative Urine Glucose (UA) Negative Urine Ketones Trace H Urine Blood Negative Urine Nitrite Negative Urine Bilirubin Negative Urine Urobilinogen 4.0 e.u/dl Ur Leukocyte Esterase Negative RPR Titer 10/28/17 07:50 WBC RBC Hgb Hct MCV MCH MCHC RDW Plt Count MPV Sodium Potassium Chloride Carbon Dioxide Anion Gap BUN Creatinine Creat Clearance w eGFR Random Glucose Calcium Total Bilirubin AST ALT Alkaline Phosphatase Total Protein Albumin Urine Color Urine Appearance Urine pH Ur Specific [place] Urine Protein Urine Glucose (UA) Urine Ketones Urine Blood Urine Nitrite Urine Bilirubin Urine Urobilinogen Ur Leukocyte Esterase RPR Titer Nonreactive LABS NOTED. Assessment: 10/31/17 11:58 WITHDRAWAL SYMPTOMS. Plan: CONTINUE DETOX. INCREASE DAILY PO FLUID INTAKE. PATIENT FOR D/C TOMORROW.
[2017-10-31] MEDS: QUEtiapine FUMARATE 100 MG TABLET (FP) PO SCH (22:10)
[2017-10-31] MEDS: THIAMINE HCL 100 MG TABLET (FP) PO SCH (22:10)
[2017-10-31] MEDS: MELATONIN 5 MG TABLETS PO PRN (22:11)
[2017-11-01] MEDS: GABAPENTIN 100 MG CAPSULE (FP) PO SCH (05:59)
[2017-11-01] MEDS ORDERED: METHADONE HCL 5 MG TABLET (FOR DETOX USE ONLY) PO SCH (06:00)
[2017-11-01 06:09] VITALS: BP 93/54; PULSE 76; TEMP 97.2
--- NOTE | 2017-11-01 12:52 | PN ---
BHS Progress Note (SOAP) Subjective: Patient denies current Detox symptoms and reports that he feels well overall. Objective: PATIENT A & O X 3, OBSERVED AMBULATING ON UNIT. NO ACUTE DISTRESS. 11/01/17 12:51 Vital Signs Temperature 97.2 F L 11/01/17 06:09 Pulse Rate 76 11/01/17 06:09 Respiratory Rate 18 11/01/17 06:09 Blood Pressure 93/54 11/01/17 06:09 O2 Sat by Pulse Oximetry (%) Laboratory Tests 10/27/17 10/28/17 10/28/17 18:40 07:50 07:50 WBC 8.5 RBC 4.19 Hgb 13.4 Hct 40.1 MCV 95.9 MCH 31.9 MCHC 33.3 RDW 14.2 Plt Count 153 MPV 9.8 Sodium 142 Potassium 4.0 Chloride 109 H Carbon Dioxide 28 Anion Gap 5 L BUN 14 D Creatinine 0.8 Creat Clearance w eGFR > 60 Random Glucose 82 Calcium 8.5 Total Bilirubin 0.3 AST 14 L ALT 15 D Alkaline Phosphatase 55 D Total Protein 5.6 L D Albumin 3.4 Urine Color Tanya Urine Appearance Clear Urine pH 5.0 Ur Specific [place] 1.021 Urine Protein Negative Urine Glucose (UA) Negative Urine Ketones Trace H Urine Blood Negative Urine Nitrite Negative Urine Bilirubin Negative Urine Urobilinogen 4.0 e.u/dl Ur Leukocyte Esterase Negative RPR Titer 10/28/17 07:50 WBC RBC Hgb Hct MCV MCH MCHC RDW Plt Count MPV Sodium Potassium Chloride Carbon Dioxide Anion Gap BUN Creatinine Creat Clearance w eGFR Random Glucose Calcium Total Bilirubin AST ALT Alkaline Phosphatase Total Protein Albumin Urine Color Urine Appearance Urine pH Ur Specific [place] Urine Protein Urine Glucose (UA) Urine Ketones Urine Blood Urine Nitrite Urine Bilirubin Urine Urobilinogen Ur Leukocyte Esterase RPR Titer Nonreactive LABS NOTED. Assessment: 11/01/17 12:51 COMPLETION OF DETOX REGIMEN. Plan: PATIENT SCHEDULED FOR DISCHARGE FROM DETOX UNIT TODAY.
--- NOTE | 2017-11-01 14:09 | DS ---
[facility] Detox Discharge Summary Admission Date: 10/27/17 Discharge Date: 11/01/17 - History Present History: Alcohol Dependence, Cocaine Dependence Additional Comments: PATIENT GOING HOME, WILL ATTEND [facility]. PATIENT WAS DISCHARGED FROM DETOX UNIT IN STABLE MEDICAL CONDITION. Pertinent Past History: Dehydration, Anxiety, Cachexia, Nicotine Dependence, Insomnia, Asthma. - Physical Exam Results Vital Signs: Vital Signs Temperature 97.2 F L 11/01/17 06:09 Pulse Rate 76 11/01/17 06:09 Respiratory Rate 18 11/01/17 06:09 Blood Pressure 93/54 11/01/17 06:09 O2 Sat by Pulse Oximetry (%) Pertinent Admission Physical Exam Findings: WITHDRAWAL SYMPTOMS. Laboratory Tests 10/27/17 10/28/17 10/28/17 18:40 07:50 07:50 WBC 8.5 RBC 4.19 Hgb 13.4 Hct 40.1 MCV 95.9 MCH 31.9 MCHC 33.3 RDW 14.2 Plt Count 153 MPV 9.8 Sodium 142 Potassium 4.0 Chloride 109 H Carbon Dioxide 28 Anion Gap 5 L BUN 14 D Creatinine 0.8 Creat Clearance w eGFR > 60 Random Glucose 82 Calcium 8.5 Total Bilirubin 0.3 AST 14 L ALT 15 D Alkaline Phosphatase 55 D Total Protein 5.6 L D Albumin 3.4 Urine Color [place] Urine Appearance Clear Urine pH 5.0 Ur Specific [place] 1.021 Urine Protein Negative Urine Glucose (UA) Negative Urine Ketones Trace H Urine Blood Negative Urine Nitrite Negative Urine Bilirubin Negative Urine Urobilinogen 4.0 e.u/dl Ur Leukocyte Esterase Negative RPR Titer 10/28/17 07:50 WBC RBC Hgb Hct MCV MCH MCHC RDW Plt Count MPV Sodium Potassium Chloride Carbon Dioxide Anion Gap BUN Creatinine Creat Clearance w eGFR Random Glucose Calcium Total Bilirubin AST ALT Alkaline Phosphatase Total Protein Albumin Urine Color Urine Appearance Urine pH Ur Specific [place] Urine Protein Urine Glucose (UA) Urine Ketones Urine Blood Urine Nitrite Urine Bilirubin Urine Urobilinogen Ur Leukocyte Esterase RPR Titer Nonreactive LABS NOTED. - Treatment Hospital Course: Detox Protocol Followed, Detoxed Safely, Responded well, Discharged Condition Good Patient has Accepted a Rehab Referral to: PT GOING TO [facility] - Medication Discharge Medications: Ambulatory Orders Quetiapine Fumarate [Seroquel] 100 mg PO HS 10/27/17 Albuterol Sulfate Inhaler - [Ventolin Hfa Inhaler -] 2 inh IH Q4H PRN #1 inhaler 11/01/17 - Diagnosis (1) Dehydration Status: Acute (2) Opioid dependence with withdrawal Status: Acute (3) Cocaine dependence Status: Chronic Qualifiers: Substance use status: uncomplicated Qualified Code(s): F14.20 - Cocaine dependence, uncomplicated (4) Nicotine dependence Status: Chronic Qualifiers: Nicotine product type: cigarettes Substance use status: uncomplicated Qualified Code(s): F17.210 - Nicotine dependence, cigarettes, uncomplicated (5) Anxiety Status: Chronic (6) Cachexia Status: Chronic (7) Substance induced mood disorder Status: Acute (8) Insomnia Status: Acute Qualifiers: Insomnia type: unspecified Qualified Code(s): G47.00 - Insomnia, unspecified (9) Asthma Status: Chronic Qualifiers: Asthma severity: mild Asthma persistence: intermittent Asthma complication type: uncomplicated Qualified Code(s): J45.20 - Mild intermittent asthma, uncomplicated (10) Benzodiazepine dependence Status: Chronic - AMA Did Patient Leave Against Medical Advice: No
--- NOTE | 2017-11-01 15:34 | PN ---
[facility] Progress Note Note: Psychiatry Attending's note : Patient got discharged today. Mr Lopez called back with a request. Wants his script for seroquel be re-routed. New destination : [facility] in [facility]. Chart reviewed. bottle caser Rene's note : appreciated. Medications revisited. Last seroquel 100 mg po hs (dispensed on 10/31/17). Intervention : Seroquel 100 mg po hs tab # 30 . Electronically sent to [facility] # [id number] ([facility]). Discussed with RN Mr Rosado.
== END 2017-11-01 08:45 | disposition home or self-care (01) | DRG 773 ==
LOC: YASAS 12:14 → Y3N 17:03
PROVIDERS: ADMIT Internal Medicine; ATTEND Internal Medicine
PROC: HZ2ZZZZ Detoxification Services for Substance Abuse Treatment (ICD-10-PCS; principal; 2017-10-27)
DX: F11.23 Opioid dependence with withdrawal (principal); F13.230 Sedative, hypnotic or anxiolytic dependence with withdrawal, uncomplicated; F14.20 Cocaine dependence, uncomplicated; F17.210 Nicotine dependence, cigarettes, uncomplicated; F19.24 Other psychoactive substance dependence with psychoactive substance-induced mood disorder; G47.00 Insomnia, unspecified; J45.20 Mild intermittent asthma, uncomplicated; E86.0 Dehydration; R64 Cachexia
CPT/HCPCS: 36415; 80053; 81003; 85027; 86593; 93005; 93010

== ENCOUNTER 2017-12-02 09:09 | Inpatient (IN) | payer OTHER ==
[2017-12-02 09:32] VITALS: BMI 18.3
--- NOTE | 2017-12-02 11:07 | HP ---
COWS - Scale Resting Pulse: 1= [place] 81-100 Sweatin= Chills/Flushing Restless Observation: 1= Difficult to Sit Still Pupil Size: 0= Normal to Room Light Bone or Joint Aches: 1= Mild Discomfort Runny Nose/ Eye Tearin= Runny Nose/Eyes GI Upset > 30mins: 1= Stomach Cramp Tremor Observation: 1= Tremor [place], Not Seen Yawning Observation: 1= 1-2x During Session Anxiety or Irritability: 2=Irritable/Anxious Goose Flesh Skin: 0=Smooth Skin COWS Score: 11 Admission ROS S - HPI Chief Complaint: I need help Allergies/Adverse Reactions: Allergies Allergy/AdvReac Type Severity Reaction Status Date / Time Fish Containing Products Allergy Severe Verified 12/02/17 12:10 History of Present Illness: 31 yo gentleman here for detox from heroin - last here 10/27/17 for detox - did got to aftercare but left there and relapsed. States he was in methadone program in past as well as suboxone but 'didn't like how he felt' on it. No seizures, no overdose, denies black outs. Exam Limitations: Clinical Condition - Ebola screening Have you traveled outside of the country in the last 21 days: No (N) Have you had contact with anyone from an Ebola affected area: No Have you been sick,other than usual withdrawal symptoms: No Do you have a fever: No - Review of Systems Constitutional: Loss of Appetite, Malaise, Night Sweats, Changes in sleep, Weakness, Unintentional Wgt. Loss EENT: reports: Nose Congestion Respiratory: reports: No Symptoms reported Cardiac: reports: No Symptoms Reported GI: reports: Nausea, Poor Appetite : reports: No Symptoms Reported Musculoskeletal: reports: Back Pain, Muscle Pain Integumentary: reports: Other (sores on bottom of feet) Neuro: reports: Headache Endocrine: reports: No Symptoms Reported Hematology: reports: No Symptoms Reported Psychiatric: reports: Anxious Other Systems: Reviewed and Negative Patient History - Patient Medical History Hx Anemia: No Hx Asthma: Yes (uses albuterol inhaler) Hx Chronic Obstructive Pulmonary Disease (COPD): No Hx Cancer: No Hx Cardiac Disorders: No Hx Congestive Heart Failure: No Hx Hypertension: No Hx Hypercholesterolemia: No Hx Pacemaker: No HX Cerebrovascular Accident: No Hx Seizures: No Hx Dementia: No Hx Diabetes: No Hx Gastrointestinal Disorders: No Hx Liver Disease: No Hx Genitourinary Disorders: No Hx Sexually Transmitted Disorders: No Hx Renal Disease (ESRD): No Hx Thyroid Disease: No Hx Human Immunodeficiency Virus (HIV): No Hx Hepatitis C: No Hx Depression: Yes (anxiety ) Hx Suicide Attempt: No Hx Bipolar Disorder: Yes Hx Schizophrenia: No - Patient Surgical History Past Surgical History: No Hx Neurologic Surgery: No Hx Cataract Extraction: No Hx Cardiac Surgery: No Hx Lung Surgery: No Hx Breast Surgery: No Hx Breast Biopsy: No Hx Abdominal Surgery: No Hx Appendectomy: No Hx Cholecystectomy: No Hx Genitourinary Surgery: No Hx Section: No Hx Orthopedic Surgery: No Anesthesia Reaction: No - PPD History Date: 10/29/17 Results: 0 mm - Reproductive History Patient is a Female of Child Bearing Age (11 -55 yrs old): No (male) - Smoking Cessation Smoking history: Current every day smoker Have you smoked in the past 12 months: Yes Aproximately how many cigarettes per day: 5 Hx Chewing Tobacco Use: No Initiated information on smoking cessation: Yes 'Breaking Loose' booklet given: 12/02/17 (give on floor) - Substance & Tx. History Hx Alcohol Use: No Hx Substance Use: Yes Substance Use Type: Cocaine, Heroin Hx Substance Use Treatment: Yes - Substances Abused heroin Route: Inhalation Frequency: Daily Amount used: 5 bags Age of first use: 14 Date of Last Use: 12/01/17 cocaine Route: Smoking Frequency: Daily Amount used: $100 Age of first use: 16 Date of Last Use: 12/01/17 Family Disease History - Family Disease History Family Disease History: Heart Disease: Father (living, HTN, hx etoh), Other: Father, Mother (living, healthy, ), Brother (one - living - healthy), Sister ( one - living - healthy), Daughter (two - living - healthy) Admission Physical Exam BHS - Vital Signs Vital Signs: Vital Signs - 24 hr 12/02/17 09:30 Temperature 98.7 F Pulse Rate 94 H Respiratory 18 Rate Blood Pressure 136/73 - Physical General Appearance: Yes: Nourished, Appropriately Dressed, Moderate Distress, Anxious HEENTM: Yes: EOMI, Hearing grossly Normal, Normocephalic, Normal Voice, Pharynx Normal Respiratory: Yes: Normal Breath Sounds, No Respiratory Distress Neck: Yes: No masses,lesions,Nodules, Supple Breast: Yes: Breast Exam Deferred Cardiology: Yes: Regular Rhythm, Regular Rate Abdominal: Yes: Non Tender, Flat Genitourinary: Yes: Within Normal Limits Back: Yes: Normal Inspection Musculoskeletal: Yes: full range of Motion, Gait Steady Extremities: Yes: Normal Inspection, Non-Tender Neurological: Yes: Motor Strength 5/5, Normal Mood/Affect, Normal Response Integumentary: Yes: Normal Color, Warm, Other (soles of both feet with nickel sized blister) Lymphatic: Yes: Within Normal Limits - Addiitonal Findings: Others' Prescriptions Patient Name: Pablo Lopez Date: 1985 Address: [address] [place] [address] Sex: Male Rx Written Rx Dispensed Drug Quantity Days Supply Prescriber Name 11/30/2017 11/30/2017 alprazolam 1 mg tablet 30 30 Kurt Dietrich MD 11/15/2017 11/15/2017 alprazolam 1 mg tablet 14 14 Kurt Dietrich MD Patient Name: Pablo Lopez Date: 1985 Address: [address] [place] [address] Sex: Male Rx Written Rx Dispensed Drug Quantity Days Supply Prescriber Name 10/19/2017 10/19/2017 alprazolam 1 mg tablet 30 30 Kurt Dietrich MD 10/18/2017 10/18/2017 clonazepam 1 mg tablet 30 30 Kurt Dietrich MD - Diagnostic (1) Opioid dependence with withdrawal Current Visit: Yes Status: Chronic (2) Cocaine dependence Current Visit: Yes Status: Chronic Qualifiers: Substance use status: uncomplicated Qualified Code(s): F14.20 - Cocaine dependence, uncomplicated (3) Dehydration Current Visit: Yes Status: Acute (4) Asthma Current Visit: Yes Status: Chronic Qualifiers: Asthma severity: mild Asthma persistence: intermittent Asthma complication type: uncomplicated Qualified Code(s): J45.20 - Mild intermittent asthma, uncomplicated (5) Benzodiazepine dependence Current Visit: Yes Status: Chronic (6) Nicotine dependence Current Visit: Yes Status: Chronic Qualifiers: Nicotine product type: cigarettes Substance use status: uncomplicated Qualified Code(s): F17.210 - Nicotine dependence, cigarettes, uncomplicated Cleared for Admission S - Detox or Rehab S Level of Care: Medically Managed Detox Regimen/Protocol: Methadone BHS Breath Alcohol Content Breath Alcohol Content: 0 Urine Drug Screen - Results Drug Screen Negative: No Urine Drug Screen Results: AMINA-Cocaine, OPI-Opiates, BZO-Benzodiazepines
[2017-12-02] MEDS ORDERED: hydrOXYzine PAMOATE 25 MG CAPSULE (FP) PO PRN (11:23)
[2017-12-02] MEDS ORDERED: LOPERAMIDE HCL 2 MG CAPSULE PO PRN (11:23)
[2017-12-02] MEDS ORDERED: P-EPHED 60MG/TRIPROLIDI 2.5MG TABLET PO PRN (11:23)
[2017-12-02] MEDS ORDERED: IBUPROFEN 400 MG TABLET (FP) PO PRN (11:23)
[2017-12-02] MEDS ORDERED: MAG HYDROX/AL HYDROX/SIMETH 30 ML UNIT-DOSE CUP PO PRN (11:23)
[2017-12-02] MEDS ORDERED: MAGNESIUM HYDROX 2400MG/30ML ORAL SUSPENSION 30 ML CUP PO PRN (11:23)
[2017-12-02] MEDS ORDERED: guaiFENesin/D-METHORPHAN HB 10 ML UNIT-DOSE CUPS PO PRN (11:23)
[2017-12-02] MEDS ORDERED: ACETAMINOPHEN 325 MG TABLET (FP) PO PRN (11:23)
[2017-12-02] MEDS ORDERED: MENTHOL/PHENOL 1 EACH UD MM PRN (11:23)
[2017-12-02] MEDS ORDERED: MAGNESIUM CITRATE 300 ML BOTTLE PO PRN (11:23)
[2017-12-02] MEDS ORDERED: NICOTINE POLACRILEX 4 MG GUM BUC PRN (11:23)
[2017-12-02] MEDS ORDERED: ALBUTEROL SO4 18 GM HFA INHALER IH PRN (12:02)
[2017-12-02] MEDS ORDERED: METHADONE HCL 10 MG TABLET (FOR DETOX USE ONLY) PO ONE ×2 (12:30→23:00)
[2017-12-02] MEDS: diazePAM 5 MG TABLET PO PRN ×2 (13:17→22:36)
[2017-12-02] MEDS ORDERED: MELATONIN 5 MG TABLETS PO PRN (22:00)
[2017-12-02] MEDS: THIAMINE HCL 100 MG TABLET (FP) PO SCH (22:36)
[2017-12-03] MEDS: diazePAM 5 MG TABLET PO PRN ×3 (05:38→22:37)
[2017-12-03] MEDS ORDERED: METHADONE HCL 10 MG TABLET (FOR DETOX USE ONLY) PO ONE (10:00)
[2017-12-03] MEDS: PRENATAL VITAMINS W/ FOLIC ACID TABLET (FP) PO SCH (10:20)
[2017-12-03 10:35] LABS: HEMATOCRIT 42.6 % (35.4-49); HEMOGLOBIN 14.1 GM/dL (11.7-16.9); MCH 32.1 pg (25.7-33.7); MCHC 33.2 g/dl (32.0-35.9); MEAN CELL VOLUME 96.6 fl (80-96); MEAN PLT VOLUME 9.6 fl (7.5-11.1); PLATELET COUNT 184 K/MM3 (134-434); RBC 4.41 M/mm3 (4.00-5.60); RDW 13.5 % (11.9-15.9); WHITE BLOOD COUNT 6.6 K/mm3 (4.0-10.0)
[2017-12-03 10:40] LABS: ALBUMIN 3.3 g/dl (3.4-5.0); ANION GAP 5 (8-16); BLOOD UREA NITROGEN 12 mg/dL (7-18); CALCIUM 8.3 mg/dL (8.5-10.1); CHLORIDE 111 mmol/L (98-107); CO2 27 mmol/L (21-32); POTASSIUM 4.3 mmol/L (3.5-5.1); SODIUM 143 mmol/L (136-145)
[2017-12-03 10:46] LABS: ALK PHOS 77 U/L (45-117); BILIRUBIN,TOTAL 0.4 mg/dL (0.2-1.0); CREATININE 0.7 mg/dL (0.7-1.3); GLUCOSE,RANDOM 80 mg/dL (74-106); SGOT/AST 10 U/L (15-37); SGPT/ALT 15 U/L (12-78); TOT PROT 5.8 g/dl (6.4-8.2)
[2017-12-03 11:00] LABS: URINE APPEARANCE SLCLOUDY; URINE BILIRUBIN NEGATIVE (<2.0 mg/dL); URINE COLOR YELLOW; URINE GLUCOSE (UA) NEGATIVE (NEGATIVE); URINE KETONE NEGATIVE (NEGATIVE); URINE LEUK ESTERASE NEGATIVE (NEGATIVE); URINE NITRITE NEGATIVE (NEGATIVE); URINE PROTEIN NEGATIVE (NEGATIVE); URINE UROBILINOGEN NEGATIVE mg/dL (0.2-1.0)
--- NOTE | 2017-12-03 17:08 | PN ---
BHS COWS - Scale Resting Pulse: 2= [place] 101-120 Sweatin=Flushed/Facial Moisture Restless Observation: 3= Extraneous Movement Pupil Size: 1= Pupils >than Normal Bone or Joint Aches: 2= Severe Diffuse Aches Runny Nose/ Eye Tearin= Runny Nose/Eyes GI Upset > 30mins: 2= Nausea/Diarrhea Tremor Observation of Outstretched Hands: 2= Slight Tremor Visible Yawning Observation: 1= 1-2x During Session Anxiety or Irritability: 2=Irritable/Anxious Goose Flesh Skin: 0=Smooth Skin COWS Score: 19 BHS Progress Note (SOAP) Subjective: Anxious, sweating, chills, nausea Objective: 12/03/17 17:06 Last Vital Signs Temp Pulse Resp BP Pulse Ox 97.6 F 110 H 20 121/77 12/03/17 13:38 12/03/17 13:38 12/03/17 13:38 12/03/17 13:38 Laboratory Tests 12/03/17 12/03/17 12/03/17 08:00 08:00 08:00 WBC 6.6 RBC 4.41 Hgb 14.1 Hct 42.6 MCV 96.6 H MCH 32.1 MCHC 33.2 RDW 13.5 Plt Count 184 D MPV 9.6 Sodium 143 Potassium 4.3 Chloride 111 H Carbon Dioxide 27 Anion Gap 5 L BUN 12 Creatinine 0.7 Creat Clearance w eGFR > 60 Random Glucose 80 Calcium 8.3 L Total Bilirubin 0.4 D AST 10 L D ALT 15 Alkaline Phosphatase 77 D Total Protein 5.8 L Albumin 3.3 L Urine Color Urine Appearance Urine pH Ur Specific [place] Urine Protein Urine Glucose (UA) Urine Ketones Urine Blood Urine Nitrite Urine Bilirubin Urine Urobilinogen Ur Leukocyte Esterase RPR Titer Nonreactive 12/03/17 09:20 WBC RBC Hgb Hct MCV MCH MCHC RDW Plt Count MPV Sodium Potassium Chloride Carbon Dioxide Anion Gap BUN Creatinine Creat Clearance w eGFR Random Glucose Calcium Total Bilirubin AST ALT Alkaline Phosphatase Total Protein Albumin Urine Color Yellow Urine Appearance Slcloudy Urine pH 6.0 Ur Specific [place] 1.021 Urine Protein Negative Urine Glucose (UA) Negative Urine Ketones Negative Urine Blood Negative Urine Nitrite Negative Urine Bilirubin Negative Urine Urobilinogen Negative Ur Leukocyte Esterase Negative RPR Titer Labs reviewed Assessment: 12/03/17 17:06 Withdrawal symptoms Plan: Continue detox Encouraged PO hydration (water)
[2017-12-03] MEDS: THIAMINE HCL 100 MG TABLET (FP) PO SCH (22:37)
[2017-12-04] MEDS ORDERED: METHADONE HCL 5 MG TABLET (FOR DETOX USE ONLY) PO ONE (10:00)
[2017-12-04] MEDS: PRENATAL VITAMINS W/ FOLIC ACID TABLET (FP) PO SCH (10:06)
--- NOTE | 2017-12-04 11:59 | PN ---
BHS COWS - Scale Resting Pulse: 0= [place] 80 or Below Sweatin= Chills/Flushing Restless Observation: 3= Extraneous Movement Pupil Size: 0= Normal to Room Light Bone or Joint Aches: 4=Acute Joint/Muscle Pain Runny Nose/ Eye Tearin= None GI Upset > 30mins: 1= Stomach Cramp Tremor Observation of Outstretched Hands: 2= Slight Tremor Visible Yawning Observation: 2= >3x During Session Anxiety or Irritability: 2=Irritable/Anxious Goose Flesh Skin: 0=Smooth Skin COWS Score: 15 BHS Progress Note (SOAP) Subjective: ANXIETY,SWEATS, HEARTBURN. Objective: 12/04/17 11:58 Vital Signs 12/04/17 12/04/17 12/04/17 06:11 06:30 09:10 Temperature 97.6 F 96.5 F L Pulse Rate 67 77 Respiratory 16 18 18 Rate Blood Pressure 114/67 95/53 Laboratory Tests 12/03/17 12/03/17 12/03/17 08:00 08:00 08:00 WBC 6.6 RBC 4.41 Hgb 14.1 Hct 42.6 MCV 96.6 H MCH 32.1 MCHC 33.2 RDW 13.5 Plt Count 184 D MPV 9.6 Sodium 143 Potassium 4.3 Chloride 111 H Carbon Dioxide 27 Anion Gap 5 L BUN 12 Creatinine 0.7 Creat Clearance w eGFR > 60 Random Glucose 80 Calcium 8.3 L Total Bilirubin 0.4 D AST 10 L D ALT 15 Alkaline Phosphatase 77 D Total Protein 5.8 L Albumin 3.3 L Urine Color Urine Appearance Urine pH Ur Specific [place] Urine Protein Urine Glucose (UA) Urine Ketones Urine Blood Urine Nitrite Urine Bilirubin Urine Urobilinogen Ur Leukocyte Esterase RPR Titer Nonreactive 12/03/17 09:20 WBC RBC Hgb Hct MCV MCH MCHC RDW Plt Count MPV Sodium Potassium Chloride Carbon Dioxide Anion Gap BUN Creatinine Creat Clearance w eGFR Random Glucose Calcium Total Bilirubin AST ALT Alkaline Phosphatase Total Protein Albumin Urine Color Yellow Urine Appearance Slcloudy Urine pH 6.0 Ur Specific [place] 1.021 Urine Protein Negative Urine Glucose (UA) Negative Urine Ketones Negative Urine Blood Negative Urine Nitrite Negative Urine Bilirubin Negative Urine Urobilinogen Negative Ur Leukocyte Esterase Negative RPR Titer Assessment: 12/04/17 11:58 WITHDRAWAL SX Plan: CONTINUE DETOX [place] PRN.
--- NOTE | 2017-12-04 13:40 | CONSULT ---
[facility] Psychiatric Consult - Data Date of interview: 12/04/17 Admission source: [facility] Identifying data: [facility] for this 31 y/o male seeking detox treatment on for opioid,cocaine and sedative/anxiolytic dependence (klonopin).Patient is single,a father of one,now homeless,unemployed, deprived of any source of income and dependent on relatives for financial support. Substance Abuse History: Confirmed by the patient in this interview.Smoking history: Current every day smoker. Have you smoked in the past 12 months: Yes. Aproximately how many cigarettes per day: 5. Hx Chewing Tobacco Use: No. Initiated information on smoking cessation: Yes. 'Breaking Loose' booklet given : 12/02/17 (give on floor). - Substance & Tx. History. Hx Alcohol Use: No. Hx Substance Use: Yes. Substance Use Type: Cocaine, Heroin. Hx Substance Use Treatment: Yes. - Substances Abused. heroin. Route: Inhalation. Frequency : Daily. Amount used: 5 bags. Age of first use: 14. Date of Last Use: . cocaine. Route: Smoking. Frequency: Daily. Amount used: $100. Age of first use: 16. Date of Last Use: 12/01/17 Medical History: Weight loss and bronchial asthma. Psychiatric History: No reported history of psychiatric hospitalizations.Patient declares that he has been diagnosed with Bipolar Disorder + Anxiety Disorder and prescribed seroquel 100 mg/hs by a private psychiatrist, Dr Saldana, based in the [place],to address chronic insomnia.Chronically non-adherent to [facility] care.Mr Lopez denies history of suicide attempts. Physical/Sexual Abuse/Trauma History: Patient denies history of abuse.Stressors : homelessness,unemployment,poverty,lack of vocational skills and addictions. Additional Comment: Urine Drug Screen Results: AMINA-Cocaine, OPI-Opiates, BZO- Benzodiazepines.Noted. Mental Status Exam - Mental Status Exam Alert and Oriented to: Time, Place, Person Cognitive Function: Good Patient Appearance: Disheveled (emaciated,thin habitus) Mood: Angry, Withdrawn, Anxious, Irritable Affect: Mood Congruent, Constricted Patient Behavior: Fatigued, Uncooperative Speech Pattern: Clear Voice Loudness: Normal Thought Process: Intact, Goal Oriented Thought Disorder: Not Present Hallucinations: Denies Suicidal Ideation: Denies Homicidal Ideation: Denies Insight/Judgement: Poor Sleep: Poorly, Difficulty falling asleep Appetite: Poor, Weight loss Muscle strength/Tone: Normal Gait/Station: Normal Psychiatric Findings - Problem List ([place] 1, 2,3) (1) Opioid dependence with withdrawal Current Visit: Yes Status: Acute (2) Benzodiazepine dependence Current Visit: Yes Status: Acute (3) Cocaine dependence Current Visit: Yes Status: Acute Qualifiers: Substance use status: uncomplicated Qualified Code(s): F14.20 - Cocaine dependence, uncomplicated (4) Nicotine dependence Current Visit: Yes Status: Acute Qualifiers: Nicotine product type: cigarettes Substance use status: in withdrawal Qualified Code(s): F17.213 - Nicotine dependence, cigarettes, with withdrawal (5) Substance induced mood disorder Current Visit: Yes Status: Acute (6) Insomnia Current Visit: Yes Status: Acute Qualifiers: Insomnia type: unspecified Qualified Code(s): G47.00 - Insomnia, unspecified - Initial Treatment Plan Initial Treatment Plan: Psychoeducation.Sleep hygiene.Detoxifcation in progress.Seroquel 100 mg po hs.Side effects/benefits discussed with the patient.Made aware of the potential for metabolic syndrome,oversedation, cardiovascular adverse events and abnormal involuntary movements.No history of side effects from seroquel.Mr Lopez agrees to this careplan.Observation.
[2017-12-04] MEDS: HYDROCORTISONE 1% TOPICAL CREAM 30 GM TUBE TP SCH ×2 (17:08→22:29)
[2017-12-04] MEDS ORDERED: QUEtiapine FUMARATE 100 MG TABLET (FP) PO SCH (22:00)
[2017-12-04] MEDS: THIAMINE HCL 100 MG TABLET (FP) PO SCH (22:29)
[2017-12-04] MEDS: diazePAM 5 MG TABLET PO PRN (22:29)
--- NOTE | 2017-12-05 00:51 | EKG ---
Test Reason : Blood Pressure : / mmHG Vent. Rate : 084 BPM Atrial Rate : 084 BPM P-R Int : 120 ms QRS Dur : 082 ms QT Int : 370 ms P-R-T Axes : 078 080 082 degrees QTc Int : 437 ms NORMAL SINUS RHYTHM NORMAL ECG WHEN COMPARED WITH ECG OF 28-OCT-2017 06:07, NO SIGNIFICANT CHANGE WAS FOUND Confirmed by JAQUELINE ADAM MD ([id number]) on 12/05/2017 12:50:56 AM Referred By: Confirmed By:JAQUELINE ADAM MD
[2017-12-05 09:34] VITALS: BP 125/77; PULSE 90; TEMP 97.8
[2017-12-05] MEDS ORDERED: METHADONE HCL 5 MG TABLET (FOR DETOX USE ONLY) PO ONE (10:00)
--- NOTE | 2017-12-05 12:49 | PN ---
S Progress Note (SOAP) Subjective: PT SEEN ALL DRESSED UP THIS SHIFT WAS STARTING. PT INFORMED STAFF HE IS LEAVING DECLINING TO CONTINUE WITH DETOX FOR PERSONAL REASONS. STATING " MY MOM IS PICKING ME UP. I'M GOING TO THE CUSTODIAL". ALL EFFORTS TO ARCHITECT INTERN PATIENT BY THIS SHORE WORKER AND COUNSELOR CATHERINE MIKE FAILED. UNRECEPTIVE TO ANY INTERVENTION. ALERT O X 3. NAD. Objective: 12/05/17 12:49 Vital Signs 12/05/17 12/05/17 06:26 09:33 Temperature 97.2 F L 97.8 F Pulse Rate 76 90 Respiratory 16 20 Rate Blood Pressure 107/71 125/77 Laboratory Tests 12/03/17 12/03/17 12/03/17 08:00 08:00 08:00 WBC 6.6 RBC 4.41 Hgb 14.1 Hct 42.6 MCV 96.6 H MCH 32.1 MCHC 33.2 RDW 13.5 Plt Count 184 D MPV 9.6 Sodium 143 Potassium 4.3 Chloride 111 H Carbon Dioxide 27 Anion Gap 5 L BUN 12 Creatinine 0.7 Creat Clearance w eGFR > 60 Random Glucose 80 Calcium 8.3 L Total Bilirubin 0.4 D AST 10 L D ALT 15 Alkaline Phosphatase 77 D Total Protein 5.8 L Albumin 3.3 L Urine Color Urine Appearance Urine pH Ur Specific [place] Urine Protein Urine Glucose (UA) Urine Ketones Urine Blood Urine Nitrite Urine Bilirubin Urine Urobilinogen Ur Leukocyte Esterase RPR Titer Nonreactive 12/03/17 09:20 WBC RBC Hgb Hct MCV MCH MCHC RDW Plt Count MPV Sodium Potassium Chloride Carbon Dioxide Anion Gap BUN Creatinine Creat Clearance w eGFR Random Glucose Calcium Total Bilirubin AST ALT Alkaline Phosphatase Total Protein Albumin Urine Color Yellow Urine Appearance Slcloudy Urine pH 6.0 Ur Specific [place] 1.021 Urine Protein Negative Urine Glucose (UA) Negative Urine Ketones Negative Urine Blood Negative Urine Nitrite Negative Urine Bilirubin Negative Urine Urobilinogen Negative Ur Leukocyte Esterase Negative RPR Titer Assessment: 12/05/17 12:49 NAD Plan: PT SIGNED OUT AMA
--- NOTE | 2017-12-05 12:52 | DS ---
[facility] Detox Discharge Summary Admission Date: 12/02/17 Discharge Date: 12/05/17 - History Present History: Cocaine Dependence, Opioid Dependence Additional Comments: PT SIGNED OUT AMA DECLINED TO CONTINUE WITH DETOX. PT REPORTS HE HAS PRIMARY CARE WITH DR DELGADO. Pertinent Past History: PLEASE SEE DX BELOW - Physical Exam Results Vital Signs: Vital Signs Temperature 97.8 F 12/05/17 09:33 Pulse Rate 90 12/05/17 09:33 Respiratory Rate 20 12/05/17 09:33 Blood Pressure 125/77 12/05/17 09:33 O2 Sat by Pulse Oximetry (%) Pertinent Admission Physical Exam Findings: WITHDRAWAL SX Laboratory Tests 12/03/17 12/03/17 12/03/17 08:00 08:00 08:00 WBC 6.6 RBC 4.41 Hgb 14.1 Hct 42.6 MCV 96.6 H MCH 32.1 MCHC 33.2 RDW 13.5 Plt Count 184 D MPV 9.6 Sodium 143 Potassium 4.3 Chloride 111 H Carbon Dioxide 27 Anion Gap 5 L BUN 12 Creatinine 0.7 Creat Clearance w eGFR > 60 Random Glucose 80 Calcium 8.3 L Total Bilirubin 0.4 D AST 10 L D ALT 15 Alkaline Phosphatase 77 D Total Protein 5.8 L Albumin 3.3 L Urine Color Urine Appearance Urine pH Ur Specific [place] Urine Protein Urine Glucose (UA) Urine Ketones Urine Blood Urine Nitrite Urine Bilirubin Urine Urobilinogen Ur Leukocyte Esterase RPR Titer Nonreactive 12/03/17 09:20 WBC RBC Hgb Hct MCV MCH MCHC RDW Plt Count MPV Sodium Potassium Chloride Carbon Dioxide Anion Gap BUN Creatinine Creat Clearance w eGFR Random Glucose Calcium Total Bilirubin AST ALT Alkaline Phosphatase Total Protein Albumin Urine Color Yellow Urine Appearance Slcloudy Urine pH 6.0 Ur Specific [place] 1.021 Urine Protein Negative Urine Glucose (UA) Negative Urine Ketones Negative Urine Blood Negative Urine Nitrite Negative Urine Bilirubin Negative Urine Urobilinogen Negative Ur Leukocyte Esterase Negative RPR Titer - Treatment Hospital Course: Discharged Condition Good - Medication Discharge Medications: Ambulatory Orders Albuterol Sulfate Inhaler - [Ventolin HFA Inhaler -] 1 - 2 puff IH Q4H PRN #1 inhaler 11/01/17 Quetiapine Fumarate [Seroquel] 100 mg PO HS #30 tablet 11/01/17 Alprazolam [Xanax] 1 mg PO DAILY 12/02/17 - Diagnosis (1) Dehydration Status: Acute (2) Opioid dependence with withdrawal Status: Acute (3) Asthma Status: Chronic Qualifiers: Asthma severity: mild Asthma persistence: intermittent Asthma complication type: uncomplicated Qualified Code(s): J45.20 - Mild intermittent asthma, uncomplicated (4) Cocaine dependence Status: Acute Qualifiers: Substance use status: uncomplicated Qualified Code(s): F14.20 - Cocaine dependence, uncomplicated (5) Nicotine dependence Status: Acute Qualifiers: Nicotine product type: cigarettes Substance use status: in withdrawal Qualified Code(s): F17.213 - Nicotine dependence, cigarettes, with withdrawal - AMA Did Patient Leave Against Medical Advice: Yes (AMA)
[2017-12-06] MEDS ORDERED: METHADONE HCL 10 MG TABLET (FOR DETOX USE ONLY) PO ONE (10:00)
[2017-12-07] MEDS ORDERED: METHADONE HCL 5 MG TABLET (FOR DETOX USE ONLY) PO ONE (06:00)
== END 2017-12-05 09:25 | disposition left against medical advice (07) | DRG 141 ==
LOC: YASAS 09:09 → Y3N 12:24
PROVIDERS: ADMIT Internal Medicine; ATTEND Internal Medicine
PROC: HZ2ZZZZ Detoxification Services for Substance Abuse Treatment (ICD-10-PCS; principal; 2017-12-02)
DX: J45.20 Mild intermittent asthma, uncomplicated (principal); F10.230 Alcohol dependence with withdrawal, uncomplicated; F13.20 Sedative, hypnotic or anxiolytic dependence, uncomplicated; F14.20 Cocaine dependence, uncomplicated; F17.213 Nicotine dependence, cigarettes, with withdrawal; F19.24 Other psychoactive substance dependence with psychoactive substance-induced mood disorder; G47.00 Insomnia, unspecified; E86.0 Dehydration
CPT/HCPCS: 36415; 80053; 81003; 85027; 86593; 93005; 93010

== ENCOUNTER 2018-02-04 16:54 | Inpatient (IN) | payer OTHER ==
[2018-02-04 17:16] VITALS: BMI 17.5
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
[2018-02-04] MEDS ORDERED: LOPERAMIDE HCL 2 MG CAPSULE PO PRN (20:04)
[2018-02-04] MEDS ORDERED: P-EPHED 60MG/TRIPROLIDI 2.5MG TABLET PO PRN (20:04)
[2018-02-04] MEDS ORDERED: IBUPROFEN 400 MG TABLET (FP) PO PRN (20:04)
[2018-02-04] MEDS ORDERED: MAG HYDROX/AL HYDROX/SIMETH 30 ML UNIT-DOSE CUP PO PRN (20:04)
[2018-02-04] MEDS ORDERED: MENTHOL/PHENOL 1 EACH UD MM PRN (20:04)
[2018-02-04] MEDS ORDERED: diazePAM 5 MG TABLET PO PRN (20:04)
[2018-02-04] MEDS ORDERED: ACETAMINOPHEN 325 MG TABLET (FP) PO PRN (20:04)
[2018-02-04] MEDS ORDERED: MAGNESIUM CITRATE 300 ML BOTTLE PO PRN (20:04)
[2018-02-04] MEDS ORDERED: MAGNESIUM HYDROX 2400MG/30ML ORAL SUSPENSION 30 ML CUP PO PRN (20:04)
[2018-02-04] MEDS ORDERED: guaiFENesin/D-METHORPHAN HB 10 ML UNIT-DOSE CUPS PO PRN (20:04)
[2018-02-04] MEDS ORDERED: hydrOXYzine PAMOATE 25 MG CAPSULE (FP) PO PRN (20:04)
[2018-02-04] MEDS ORDERED: METHADONE HCL 10 MG TABLET (FOR DETOX USE ONLY) PO ONE ×2 (20:30→23:00)
[2018-02-04] MEDS ORDERED: diazePAM 5 MG TABLET PO ONE (20:30)
[2018-02-04] MEDS: cloNIDine HCL 0.1 MG TABLET PO SCH (21:23)
[2018-02-04] MEDS: diazePAM 5 MG TABLET PO SCH (21:23)
[2018-02-04] MEDS: NICOTINE 21 MG/24 HOURS TOPICAL PATCH TD SCH (21:24)
[2018-02-04] MEDS: THIAMINE HCL 100 MG TABLET (FP) PO SCH (21:26)
[2018-02-04] MEDS ORDERED: MELATONIN 5 MG TABLETS PO PRN (22:00)
[2018-02-04 23:00] LABS: URINE APPEARANCE TURBID; URINE BILIRUBIN NEGATIVE (<2.0 mg/dL); URINE COLOR YELLOW; URINE GLUCOSE (UA) NEGATIVE (NEGATIVE); URINE KETONE 1+ (NEGATIVE); URINE LEUK ESTERASE NEGATIVE (NEGATIVE); URINE NITRITE NEGATIVE (NEGATIVE); URINE PROTEIN NEGATIVE (NEGATIVE); URINE UROBILINOGEN NEGATIVE mg/dL (0.2-1.0)
[2018-02-05] MEDS: diazePAM 5 MG TABLET PO SCH ×3 (05:36→22:13)
[2018-02-05 09:39] LABS: HEMATOCRIT 38.8 % (35.4-49); HEMOGLOBIN 13.4 GM/dL (11.7-16.9); MCH 32.3 pg (25.7-33.7); MCHC 34.7 g/dl (32.0-35.9); MEAN CELL VOLUME 93.2 fl (80-96); MEAN PLT VOLUME 9.4 fl (7.5-11.1); PLATELET COUNT 164 K/MM3 (134-434); RBC 4.16 M/mm3 (4.00-5.60); RDW 13.1 % (11.9-15.9); WHITE BLOOD COUNT 6.2 K/mm3 (4.0-10.0)
[2018-02-05 09:56] LABS: ALBUMIN 3.3 g/dl (3.4-5.0); ALK PHOS 75 U/L (45-117); ANION GAP 4 (8-16); BILIRUBIN,TOTAL 0.4 mg/dL (0.2-1.0); BLOOD UREA NITROGEN 10 mg/dL (7-18); CALCIUM 8.5 mg/dL (8.5-10.1); CHLORIDE 107 mmol/L (98-107); CO2 32 mmol/L (21-32); GLUCOSE,RANDOM 91 mg/dL (74-106); POTASSIUM 4.2 mmol/L (3.5-5.1); SGOT/AST 18 U/L (15-37); SGPT/ALT 19 U/L (12-78); SODIUM 143 mmol/L (136-145); TOT PROT 5.7 g/dl (6.4-8.2)
[2018-02-05] MEDS ORDERED: METHADONE HCL 10 MG TABLET (FOR DETOX USE ONLY) PO SCH (10:00)
[2018-02-05] MEDS: cloNIDine HCL 0.1 MG TABLET PO SCH ×2 (10:10→22:13)
[2018-02-05] MEDS: PRENATAL VITAMINS W/ FOLIC ACID TABLET (FP) PO SCH (10:10)
[2018-02-05] MEDS: NICOTINE 21 MG/24 HOURS TOPICAL PATCH TD SCH (10:10)
--- NOTE | 2018-02-05 11:43 | EKG ---
Test Reason : Blood Pressure : / mmHG Vent. Rate : 081 BPM Atrial Rate : 081 BPM P-R Int : 120 ms QRS Dur : 084 ms QT Int : 394 ms P-R-T Axes : 079 078 074 degrees QTc Int : 457 ms NORMAL SINUS RHYTHM WITH SINUS ARRHYTHMIA NORMAL ECG WHEN COMPARED WITH ECG OF 02-DEC-2017 13:26, T WAVE INVERSION NOW EVIDENT IN ANTERIOR LEADS Confirmed by ALY RIVAS, ARCADIO ([id number]) on 02/05/2018 11:42:53 AM Referred By: Confirmed By:ARCADIO LU MD
--- NOTE | 2018-02-05 14:32 | PN ---
[facility] CIWA - CIWA Score Nausea/Vomitin Muscle Tremors: 3 Anxiety: 2 Agitation: 2 Paroxysmal Sweats: 3 Orientation: 0-Oriented Tacttile Disturbances: 1-Very Mild Itch/Numbness Auditory Disturbances: 0-None Visual Disturbances: 0-None Headache: 0-None Present CIWA-Ar Total Score: 14 S COWS - Scale Resting Pulse: 1= [place] 81-100 Sweatin=Flushed/Facial Moisture Restless Observation: 3= Extraneous Movement Pupil Size: 0= Normal to Room Light Bone or Joint Aches: 1= Mild Discomfort Runny Nose/ Eye Tearin= Nasal Congestion GI Upset > 30mins: 1= Stomach Cramp Tremor Observation of Outstretched Hands: 2= Slight Tremor Visible Yawning Observation: 0= None Anxiety or Irritability: 2=Irritable/Anxious Goose Flesh Skin: 0=Smooth Skin COWS Score: 13 S Progress Note (SOAP) Subjective: Shakes sweats sleep disturbance nasal congestion Objective: 02/05/18 14:35 A & O x 3 Vital Signs Temperature 97.6 F 02/05/18 13:23 Pulse Rate 77 02/05/18 13:23 Respiratory Rate 18 02/05/18 13:23 Blood Pressure 100/63 02/05/18 13:23 O2 Sat by Pulse Oximetry (%) Laboratory Last Values WBC 6.2 K/mm3 (4.0-10.0) 02/05/18 07:00 RBC 4.16 M/mm3 (4.00-5.60) 02/05/18 07:00 Hgb 13.4 GM/dL (11.7-16.9) 02/05/18 07:00 Hct 38.8 % (35.4-49) 02/05/18 07:00 MCV 93.2 fl (80-96) 02/05/18 07:00 MCH 32.3 pg (25.7-33.7) 02/05/18 07:00 MCHC 34.7 g/dl (32.0-35.9) 02/05/18 07:00 RDW 13.1 % (11.9-15.9) 02/05/18 07:00 Plt Count 164 K/MM3 (134-434) 02/05/18 07:00 MPV 9.4 fl (7.5-11.1) 02/05/18 07:00 Sodium 143 mmol/L (136-145) 02/05/18 07:00 Potassium 4.2 mmol/L (3.5-5.1) 02/05/18 07:00 Chloride 107 mmol/L (98-107) 02/05/18 07:00 Carbon Dioxide 32 mmol/L (21-32) 02/05/18 07:00 Anion Gap 4 (8-16) L 02/05/18 07:00 BUN 10 mg/dL (7-18) 02/05/18 07:00 Creatinine 1.0 mg/dL (0.7-1.3) 02/05/18 07:00 Creat Clearance w eGFR > 60 (>60) 02/05/18 07:00 Random Glucose 91 mg/dL (74-106) 02/05/18 07:00 Calcium 8.5 mg/dL (8.5-10.1) 02/05/18 07:00 Total Bilirubin 0.4 mg/dL (0.2-1.0) 02/05/18 07:00 AST 18 U/L (15-37) D 02/05/18 07:00 ALT 19 U/L (12-78) D 02/05/18 07:00 Alkaline Phosphatase 75 U/L (45-117) 02/05/18 07:00 Total Protein 5.7 g/dl (6.4-8.2) L 02/05/18 07:00 Albumin 3.3 g/dl (3.4-5.0) L 02/05/18 07:00 Urine Color Yellow 02/04/18 22:40 Urine Appearance Turbid 02/04/18 22:40 Urine pH 5.0 (5.0-8.0) 02/04/18 22:40 Ur Specific [place] 1.019 (1.001-1.035) 02/04/18 22:40 Urine Protein Negative (NEGATIVE) 02/04/18 22:40 Urine Glucose (UA) Negative (NEGATIVE) 02/04/18 22:40 Urine Ketones 1+ (NEGATIVE) H 02/04/18 22:40 Urine Blood Negative (NEGATIVE) 02/04/18 22:40 Urine Nitrite Negative (NEGATIVE) 02/04/18 22:40 Urine Bilirubin Negative (<2.0 mg/dL) 02/04/18 22:40 Urine Urobilinogen Negative mg/dL (0.2-1.0) 02/04/18 22:40 Ur Leukocyte Esterase Negative (NEGATIVE) 02/04/18 22:40 RPR Titer Nonreactive (NONREACTIVE) 02/05/18 07:00 labs noted Assessment: 02/05/18 14:38 withdrawal sx Plan: continue detox
--- NOTE | 2018-02-05 17:43 | CONSULT ---
[facility] Psychiatric Consult - Data Date of interview: 02/05/18 Admission source: [facility] Identifying data: Another admission to [facility] for this 32 y/o male seeking detox treatment on for alcohol,heroin,cocaine and sedative/ anxiolytic dependence (klonopin).Patient is single,a father of one,homeless, unemployed and supported by relatives. Substance Abuse History: Confirmed by the patient in this interview.Smoking history: Current every day smoker. Have you smoked in the past 12 months: Yes. Aproximately how many cigarettes per day: 10. Hx Chewing Tobacco Use: No. Initiated information on smoking cessation: Yes. 'Breaking Loose' booklet given : 02/04/18. - Substance & Tx. History. Hx Alcohol Use: Yes. Hx Substance Use : Yes. Substance Use Type: Alcohol, Cocaine, Heroin, Tranquilizers. Hx Substance Use Treatment: Yes ([facility] 12/02/17 to 12/05/17 not completd). - Substances Abused. Heroin. Route: Inhalation. Frequency: Daily. Amount used: 10 to 12 bags. Age of first use: 30. Date of Last Use: 02/04/18. Alcohol. Route: Oral. Frequency: Daily. Amount used: 1pint of vodka/6 packs of 12 ozs of beer. Age of first use: 14. Date of Last Use: 02/03/18. Alprazolam (Xanax). Route: Oral. Frequency: Daily. Amount used: 4 to 5mgs. Age of first use: 19. Date of Last Use: 02/03/18. Cocaine. Route: Smoking. Frequency: Daily. Amount used: 200$. Age of first use: 20. Date of Last Use: 02/03/18 Medical History: Bronchial asthma. Psychiatric History: No reported history of psychiatric hospitalizations.Diagnosed with Bipolar Disorder + Anxiety Disorder.Medicated with seroquel 100 mg/hs for insomnia.Chronically non-adherent to [facility] care.Mr Lopez denies history of suicide attempts. Physical/Sexual Abuse/Trauma History: Patient denies. Additional Comment: Urine Drug Screen Results: AMINA-Cocaine, OPI-Opiates, AMP- Amphetamines, MET-Methamphetamine, BZO-Benzodiazepines.Noted. Mental Status Exam - Mental Status Exam Alert and Oriented to: Time, Place, Person Cognitive Function: Good Patient Appearance: Disheveled Mood: Nervous, Withdrawn Affect: Mood Congruent Patient Behavior: Fatigued, Cooperative Speech Pattern: Clear Voice Loudness: Normal Thought Process: Goal Oriented Thought Disorder: Not Present Hallucinations: Denies Suicidal Ideation: Denies Homicidal Ideation: Denies Insight/Judgement: Poor Sleep: Poorly, Difficulty falling asleep Appetite: Good Muscle strength/Tone: Normal Gait/Station: Normal Psychiatric Findings - Problem List ([place] 1, 2,3) (1) Opioid dependence with withdrawal Current Visit: Yes Status: Acute (2) Alcohol dependence with uncomplicated withdrawal Current Visit: Yes Status: Acute (3) Benzodiazepine dependence Current Visit: Yes Status: Acute (4) Cocaine dependence Current Visit: Yes Status: Acute Qualifiers: Substance use status: uncomplicated Qualified Code(s): F14.20 - Cocaine dependence, uncomplicated (5) Nicotine dependence Current Visit: No Status: Acute Qualifiers: Nicotine product type: cigarettes Substance use status: in withdrawal Qualified Code(s): F17.213 - Nicotine dependence, cigarettes, with withdrawal (6) Substance induced mood disorder Current Visit: Yes Status: Acute (7) Insomnia Current Visit: Yes Status: Acute Qualifiers: Insomnia type: unspecified Qualified Code(s): G47.00 - Insomnia, unspecified - Initial Treatment Plan Initial Treatment Plan: Psychoeducation.Sleep hygiene.Detoxification.Seroquel 100 mg po hs.Side effects/benefits discussed iwth the patient.Mr Lopez agrees to careplan.Observation.
[2018-02-05] MEDS: QUEtiapine FUMARATE 100 MG TABLET (FP) PO SCH (22:13)
[2018-02-05] MEDS: THIAMINE HCL 100 MG TABLET (FP) PO SCH (22:13)
[2018-02-06] MEDS: cloNIDine HCL 0.1 MG TABLET PO SCH ×2 (10:05→22:16)
[2018-02-06] MEDS: PRENATAL VITAMINS W/ FOLIC ACID TABLET (FP) PO SCH (10:05)
[2018-02-06] MEDS: METHADONE HCL 5 MG TABLET (FOR DETOX USE ONLY) PO SCH (10:05)
[2018-02-06] MEDS: diazePAM 5 MG TABLET PO SCH ×2 (10:06→22:15)
[2018-02-06] MEDS: NICOTINE 21 MG/24 HOURS TOPICAL PATCH TD SCH (10:06)
--- NOTE | 2018-02-06 12:21 | PN ---
[facility] COWS - Scale Resting Pulse: 1= [place] 81-100 Sweatin= Chills/Flushing Restless Observation: 0= Sits Still Pupil Size: 0= Normal to Room Light Bone or Joint Aches: 4=Acute Joint/Muscle Pain Runny Nose/ Eye Tearin= None GI Upset > 30mins: 0= None Tremor Observation of Outstretched Hands: 0= None Yawning Observation: 2= >3x During Session Anxiety or Irritability: 2=Irritable/Anxious Goose Flesh Skin: 3=Piloerection COWS Score: 13 BHS Progress Note (SOAP) Subjective: Fatigue, Sweating, Anxious, Body Aches. Objective: PATIENT A & O X 3, OBSERVED AMBULATING ON UNIT. NO ACUTE DISTRESS. 02/06/18 12:20 Vital Signs Temperature 97.3 F L 02/06/18 09:12 Pulse Rate 93 H 02/06/18 09:12 Respiratory Rate 16 02/06/18 09:12 Blood Pressure 120/80 02/06/18 09:12 O2 Sat by Pulse Oximetry (%) Laboratory Tests 02/04/18 02/05/18 02/05/18 22:40 07:00 07:00 WBC 6.2 RBC 4.16 Hgb 13.4 Hct 38.8 MCV 93.2 MCH 32.3 MCHC 34.7 RDW 13.1 Plt Count 164 MPV 9.4 Sodium 143 Potassium 4.2 Chloride 107 Carbon Dioxide 32 Anion Gap 4 L BUN 10 Creatinine 1.0 Creat Clearance w eGFR > 60 Random Glucose 91 Calcium 8.5 Total Bilirubin 0.4 AST 18 D ALT 19 D Alkaline Phosphatase 75 Total Protein 5.7 L Albumin 3.3 L Urine Color Yellow Urine Appearance Turbid Urine pH 5.0 Ur Specific [place] 1.019 Urine Protein Negative Urine Glucose (UA) Negative Urine Ketones 1+ H Urine Blood Negative Urine Nitrite Negative Urine Bilirubin Negative Urine Urobilinogen Negative Ur Leukocyte Esterase Negative RPR Titer 02/05/18 07:00 WBC RBC Hgb Hct MCV MCH MCHC RDW Plt Count MPV Sodium Potassium Chloride Carbon Dioxide Anion Gap BUN Creatinine Creat Clearance w eGFR Random Glucose Calcium Total Bilirubin AST ALT Alkaline Phosphatase Total Protein Albumin Urine Color Urine Appearance Urine pH Ur Specific [place] Urine Protein Urine Glucose (UA) Urine Ketones Urine Blood Urine Nitrite Urine Bilirubin Urine Urobilinogen Ur Leukocyte Esterase RPR Titer Nonreactive LABS NOTED. Assessment: 02/06/18 12:21 WITHDRAWAL SYMPTOMS. Plan: CONTINUE DETOX.
[2018-02-06] MEDS: QUEtiapine FUMARATE 100 MG TABLET (FP) PO SCH (22:16)
[2018-02-06] MEDS: THIAMINE HCL 100 MG TABLET (FP) PO SCH (22:16)
[2018-02-07] MEDS: cloNIDine HCL 0.1 MG TABLET PO SCH ×2 (10:03→22:48)
[2018-02-07] MEDS: METHADONE HCL 5 MG TABLET (FOR DETOX USE ONLY) PO SCH (10:03)
[2018-02-07] MEDS: PRENATAL VITAMINS W/ FOLIC ACID TABLET (FP) PO SCH (10:03)
[2018-02-07] MEDS: diazePAM 5 MG TABLET PO SCH ×2 (10:03→22:48)
[2018-02-07] MEDS: NICOTINE 21 MG/24 HOURS TOPICAL PATCH TD SCH (10:03)
--- NOTE | 2018-02-07 11:34 | PN ---
[facility] Progress Note (SOAP) Subjective: Sweating, Fatigue, Anxious, Body Aches. Objective: PATIENT A & O X 3, OBSERVED AMBULATING ON UNIT. NO ACUTE DISTRESS. 02/07/18 11:35 Vital Signs Temperature 96.9 F L 02/07/18 09:21 Pulse Rate 73 02/07/18 09:21 Respiratory Rate 18 02/07/18 09:21 Blood Pressure 114/72 02/07/18 09:21 O2 Sat by Pulse Oximetry (%) Laboratory Tests 02/04/18 02/05/18 02/05/18 22:40 07:00 07:00 WBC 6.2 RBC 4.16 Hgb 13.4 Hct 38.8 MCV 93.2 MCH 32.3 MCHC 34.7 RDW 13.1 Plt Count 164 MPV 9.4 Sodium 143 Potassium 4.2 Chloride 107 Carbon Dioxide 32 Anion Gap 4 L BUN 10 Creatinine 1.0 Creat Clearance w eGFR > 60 Random Glucose 91 Calcium 8.5 Total Bilirubin 0.4 AST 18 D ALT 19 D Alkaline Phosphatase 75 Total Protein 5.7 L Albumin 3.3 L Urine Color Yellow Urine Appearance Turbid Urine pH 5.0 Ur Specific [place] 1.019 Urine Protein Negative Urine Glucose (UA) Negative Urine Ketones 1+ H Urine Blood Negative Urine Nitrite Negative Urine Bilirubin Negative Urine Urobilinogen Negative Ur Leukocyte Esterase Negative RPR Titer 02/05/18 07:00 WBC RBC Hgb Hct MCV MCH MCHC RDW Plt Count MPV Sodium Potassium Chloride Carbon Dioxide Anion Gap BUN Creatinine Creat Clearance w eGFR Random Glucose Calcium Total Bilirubin AST ALT Alkaline Phosphatase Total Protein Albumin Urine Color Urine Appearance Urine pH Ur Specific [place] Urine Protein Urine Glucose (UA) Urine Ketones Urine Blood Urine Nitrite Urine Bilirubin Urine Urobilinogen Ur Leukocyte Esterase RPR Titer Nonreactive LABS NOTED. Assessment: 02/07/18 11:35 WITHDRAWAL SYMPTOMS. Plan: CONTINUE DETOX. INCREASE DAILY PO FLUID INTAKE.
[2018-02-07] MEDS: THIAMINE HCL 100 MG TABLET (FP) PO SCH (22:48)
[2018-02-07] MEDS: QUEtiapine FUMARATE 100 MG TABLET (FP) PO SCH (22:48)
[2018-02-07] MEDS: CYCLOBENZAPRINE HCL 10 MG TABLET (FP) PO PRN (22:48)
[2018-02-08] MEDS ORDERED: diazePAM 5 MG TABLET PO SCH (10:00)
[2018-02-08] MEDS ORDERED: METHADONE HCL 10 MG TABLET (FOR DETOX USE ONLY) PO SCH (10:00)
[2018-02-08] MEDS: NICOTINE 21 MG/24 HOURS TOPICAL PATCH TD SCH (10:12)
[2018-02-08] MEDS: cloNIDine HCL 0.1 MG TABLET PO SCH ×2 (10:12→22:14)
[2018-02-08] MEDS: PRENATAL VITAMINS W/ FOLIC ACID TABLET (FP) PO SCH (10:12)
--- NOTE | 2018-02-08 12:03 | PN ---
B[facility] Progress Note (SOAP) Subjective: Sweating, Fatigue, Anxious. Objective: PATIENT A & O X 3, OBSERVED AMBULATING ON UNIT. NO ACUTE DISTRESS. 02/08/18 12:01 Vital Signs Temperature 97.9 F 02/08/18 09:31 Pulse Rate 84 02/08/18 09:31 Respiratory Rate 16 02/08/18 09:31 Blood Pressure 112/70 02/08/18 09:31 O2 Sat by Pulse Oximetry (%) Laboratory Tests 02/04/18 02/05/18 02/05/18 22:40 07:00 07:00 WBC 6.2 RBC 4.16 Hgb 13.4 Hct 38.8 MCV 93.2 MCH 32.3 MCHC 34.7 RDW 13.1 Plt Count 164 MPV 9.4 Sodium 143 Potassium 4.2 Chloride 107 Carbon Dioxide 32 Anion Gap 4 L BUN 10 Creatinine 1.0 Creat Clearance w eGFR > 60 Random Glucose 91 Calcium 8.5 Total Bilirubin 0.4 AST 18 D ALT 19 D Alkaline Phosphatase 75 Total Protein 5.7 L Albumin 3.3 L Urine Color Yellow Urine Appearance Turbid Urine pH 5.0 Ur Specific [place] 1.019 Urine Protein Negative Urine Glucose (UA) Negative Urine Ketones 1+ H Urine Blood Negative Urine Nitrite Negative Urine Bilirubin Negative Urine Urobilinogen Negative Ur Leukocyte Esterase Negative RPR Titer 02/05/18 07:00 WBC RBC Hgb Hct MCV MCH MCHC RDW Plt Count MPV Sodium Potassium Chloride Carbon Dioxide Anion Gap BUN Creatinine Creat Clearance w eGFR Random Glucose Calcium Total Bilirubin AST ALT Alkaline Phosphatase Total Protein Albumin Urine Color Urine Appearance Urine pH Ur Specific [place] Urine Protein Urine Glucose (UA) Urine Ketones Urine Blood Urine Nitrite Urine Bilirubin Urine Urobilinogen Ur Leukocyte Esterase RPR Titer Nonreactive LABS NOTED. Assessment: 02/08/18 12:02 WITHDRAWAL SYMPTOMS. Plan: CONTINUE DETOX. INCREASE DAILY PO FLUID INTAKE. ENCOURAGE AMBULATION.
[2018-02-08] MEDS: QUEtiapine FUMARATE 100 MG TABLET (FP) PO SCH (22:14)
[2018-02-08] MEDS: THIAMINE HCL 100 MG TABLET (FP) PO SCH (22:14)
[2018-02-08] MEDS: CYCLOBENZAPRINE HCL 10 MG TABLET (FP) PO PRN (22:14)
[2018-02-09] MEDS ORDERED: METHADONE HCL 5 MG TABLET (FOR DETOX USE ONLY) PO SCH (06:00)
[2018-02-09] MEDS: PRENATAL VITAMINS W/ FOLIC ACID TABLET (FP) PO SCH (10:10)
[2018-02-09] MEDS: cloNIDine HCL 0.1 MG TABLET PO SCH ×2 (10:10→22:21)
[2018-02-09] MEDS: NICOTINE 21 MG/24 HOURS TOPICAL PATCH TD SCH (10:10)
--- NOTE | 2018-02-09 11:58 | PN ---
[facility] Progress Note (SOAP) Subjective: Sweating, Anxious, Fatigue. Objective: PATIENT A & O X 3. NO ACUTE DISTRESS. 02/09/18 11:56 Vital Signs Temperature 98.1 F 02/09/18 09:16 Pulse Rate 84 02/09/18 09:16 Respiratory Rate 16 02/09/18 09:16 Blood Pressure 107/62 02/09/18 09:16 O2 Sat by Pulse Oximetry (%) Laboratory Tests 02/04/18 02/05/18 02/05/18 22:40 07:00 07:00 WBC 6.2 RBC 4.16 Hgb 13.4 Hct 38.8 MCV 93.2 MCH 32.3 MCHC 34.7 RDW 13.1 Plt Count 164 MPV 9.4 Sodium 143 Potassium 4.2 Chloride 107 Carbon Dioxide 32 Anion Gap 4 L BUN 10 Creatinine 1.0 Creat Clearance w eGFR > 60 Random Glucose 91 Calcium 8.5 Total Bilirubin 0.4 AST 18 D ALT 19 D Alkaline Phosphatase 75 Total Protein 5.7 L Albumin 3.3 L Urine Color Yellow Urine Appearance Turbid Urine pH 5.0 Ur Specific [place] 1.019 Urine Protein Negative Urine Glucose (UA) Negative Urine Ketones 1+ H Urine Blood Negative Urine Nitrite Negative Urine Bilirubin Negative Urine Urobilinogen Negative Ur Leukocyte Esterase Negative RPR Titer 02/05/18 07:00 WBC RBC Hgb Hct MCV MCH MCHC RDW Plt Count MPV Sodium Potassium Chloride Carbon Dioxide Anion Gap BUN Creatinine Creat Clearance w eGFR Random Glucose Calcium Total Bilirubin AST ALT Alkaline Phosphatase Total Protein Albumin Urine Color Urine Appearance Urine pH Ur Specific [place] Urine Protein Urine Glucose (UA) Urine Ketones Urine Blood Urine Nitrite Urine Bilirubin Urine Urobilinogen Ur Leukocyte Esterase RPR Titer Nonreactive LABS NOTED. Assessment: 02/09/18 11:56 WITHDRAWAL SYMPTOMS. Plan: CONTINUE DETOX. DUE TO SEVERITY LEVEL OF CURRENT WITHDRAWAL SYMPTOMS, PATIENT PERMITTED TO REMAIN ON DETOX UNIT UNTIL TOMORROW PENDING MEDICAL ASSESSMENT AT THAT TIME.
[2018-02-09] MEDS: QUEtiapine FUMARATE 100 MG TABLET (FP) PO SCH (22:21)
[2018-02-09] MEDS: THIAMINE HCL 100 MG TABLET (FP) PO SCH (22:21)
[2018-02-09] MEDS: CYCLOBENZAPRINE HCL 10 MG TABLET (FP) PO PRN (22:21)
[2018-02-10] MEDS ORDERED: BACITRACIN 0.9 GM PACKET TP ONE (09:29)
[2018-02-10 09:34] VITALS: BP 108/70; PULSE 88; TEMP 98
--- NOTE | 2018-02-10 20:50 | PN ---
[facility] Progress Note (SOAP) Subjective: Patient denies current Detox symptoms and reports that he feels well overall. Objective: PATIENT A & O X 3, OBSERVED AMBULATING ON UNIT. NO ACUTE DISTRESS. 02/10/18 20:48 Vital Signs Temperature 98.0 F 02/10/18 09:33 Pulse Rate 88 02/10/18 09:33 Respiratory Rate 20 02/10/18 09:33 Blood Pressure 108/70 02/10/18 09:33 O2 Sat by Pulse Oximetry (%) Laboratory Tests 02/04/18 02/05/18 02/05/18 22:40 07:00 07:00 WBC 6.2 RBC 4.16 Hgb 13.4 Hct 38.8 MCV 93.2 MCH 32.3 MCHC 34.7 RDW 13.1 Plt Count 164 MPV 9.4 Sodium 143 Potassium 4.2 Chloride 107 Carbon Dioxide 32 Anion Gap 4 L BUN 10 Creatinine 1.0 Creat Clearance w eGFR > 60 Random Glucose 91 Calcium 8.5 Total Bilirubin 0.4 AST 18 D ALT 19 D Alkaline Phosphatase 75 Total Protein 5.7 L Albumin 3.3 L Urine Color Yellow Urine Appearance Turbid Urine pH 5.0 Ur Specific [place] 1.019 Urine Protein Negative Urine Glucose (UA) Negative Urine Ketones 1+ H Urine Blood Negative Urine Nitrite Negative Urine Bilirubin Negative Urine Urobilinogen Negative Ur Leukocyte Esterase Negative RPR Titer 02/05/18 07:00 WBC RBC Hgb Hct MCV MCH MCHC RDW Plt Count MPV Sodium Potassium Chloride Carbon Dioxide Anion Gap BUN Creatinine Creat Clearance w eGFR Random Glucose Calcium Total Bilirubin AST ALT Alkaline Phosphatase Total Protein Albumin Urine Color Urine Appearance Urine pH Ur Specific [place] Urine Protein Urine Glucose (UA) Urine Ketones Urine Blood Urine Nitrite Urine Bilirubin Urine Urobilinogen Ur Leukocyte Esterase RPR Titer Nonreactive LABS NOTED. Assessment: 02/10/18 20:49 COMPLETION OF DETOX REGIMEN. 02/10/18 20:49 Plan: PATIENT SCHEDULED FOR DISCHARGE FROM DETOX UNIT TODAY.
--- NOTE | 2018-02-10 20:57 | DS ---
[facility] Detox Discharge Summary Admission Date: 02/04/18 Discharge Date: 02/10/18 - History Present History: Alcohol Dependence, Cocaine Dependence, Opioid Dependence, Sedative Dependence Additional Comments: PATIENT CONTEMPLATING REHAB FOR A LATER DATE. PATIENT ALSO ADVISED TO CONSIDER LOCAL 12-STEP / NA / AA OUTPATIENT SUPPORT GROUPS FOR AFTERCARE. PATIENT WAS DISCHARGED FROM DETOX UNIT IN STABLE MEDICAL CONDITION. Pertinent Past History: Asthma, Weight Loss, Nicotine Dependence, Insomnia, Depression, Anxiety, Dehydration. - Physical Exam Results Vital Signs: Vital Signs Temperature 98.0 F 02/10/18 09:33 Pulse Rate 88 02/10/18 09:33 Respiratory Rate 20 02/10/18 09:33 Blood Pressure 108/70 02/10/18 09:33 O2 Sat by Pulse Oximetry (%) Pertinent Admission Physical Exam Findings: WITHDRAWAL SYMPTOMS. Laboratory Tests 02/04/18 02/05/18 02/05/18 22:40 07:00 07:00 WBC 6.2 RBC 4.16 Hgb 13.4 Hct 38.8 MCV 93.2 MCH 32.3 MCHC 34.7 RDW 13.1 Plt Count 164 MPV 9.4 Sodium 143 Potassium 4.2 Chloride 107 Carbon Dioxide 32 Anion Gap 4 L BUN 10 Creatinine 1.0 Creat Clearance w eGFR > 60 Random Glucose 91 Calcium 8.5 Total Bilirubin 0.4 AST 18 D ALT 19 D Alkaline Phosphatase 75 Total Protein 5.7 L Albumin 3.3 L Urine Color Yellow Urine Appearance Turbid Urine pH 5.0 Ur Specific [place] 1.019 Urine Protein Negative Urine Glucose (UA) Negative Urine Ketones 1+ H Urine Blood Negative Urine Nitrite Negative Urine Bilirubin Negative Urine Urobilinogen Negative Ur Leukocyte Esterase Negative RPR Titer 02/05/18 07:00 WBC RBC Hgb Hct MCV MCH MCHC RDW Plt Count MPV Sodium Potassium Chloride Carbon Dioxide Anion Gap BUN Creatinine Creat Clearance w eGFR Random Glucose Calcium Total Bilirubin AST ALT Alkaline Phosphatase Total Protein Albumin Urine Color Urine Appearance Urine pH Ur Specific [place] Urine Protein Urine Glucose (UA) Urine Ketones Urine Blood Urine Nitrite Urine Bilirubin Urine Urobilinogen Ur Leukocyte Esterase RPR Titer Nonreactive LABS NOTED. - Treatment Hospital Course: Detox Protocol Followed, Detoxed Safely, Responded well, Discharged Condition Good Patient has Accepted a Rehab Referral to: PATIENT WILL CONSIDER REHAB ADMSSION FOR A LATER DATE. - Medication Discharge Medications: Ambulatory Orders Albuterol Sulfate Inhaler - [Ventolin HFA Inhaler -] 1 - 2 puff IH Q4H PRN #1 inhaler 11/01/17 Quetiapine Fumarate [Seroquel] 100 mg PO HS #30 tablet 11/01/17 Quetiapine Fumarate [Seroquel] 100 mg PO HS #30 tablet 02/07/18 - Diagnosis (1) Alcohol dependence with uncomplicated withdrawal Status: Acute (2) Benzodiazepine dependence Status: Acute (3) Cocaine dependence Status: Acute Qualifiers: Substance use status: uncomplicated Qualified Code(s): F14.20 - Cocaine dependence, uncomplicated (4) Opioid dependence with withdrawal Status: Acute (5) Insomnia secondary to depression with anxiety Status: Chronic (6) Weight loss Status: Chronic (7) Nicotine dependence Status: Acute Qualifiers: Nicotine product type: cigarettes Substance use status: in withdrawal Qualified Code(s): F17.213 - Nicotine dependence, cigarettes, with withdrawal (8) Dehydration Status: Acute (9) Asthma Status: Chronic Qualifiers: Asthma severity: mild Asthma persistence: intermittent Asthma complication type: uncomplicated Qualified Code(s): J45.20 - Mild intermittent asthma, uncomplicated (10) Insomnia Status: Acute Qualifiers: Insomnia type: unspecified Qualified Code(s): G47.00 - Insomnia, unspecified (11) Substance induced mood disorder Status: Acute - AMA Did Patient Leave Against Medical Advice: No
== END 2018-02-10 09:51 | disposition home or self-care (01) | DRG 773 ==
LOC: YASAS 16:54 → Y3N 20:06
PROVIDERS: ADMIT Surgery; ATTEND Surgery
PROC: HZ2ZZZZ Detoxification Services for Substance Abuse Treatment (ICD-10-PCS; principal; 2018-02-04)
DX: F11.23 Opioid dependence with withdrawal (principal); F10.230 Alcohol dependence with withdrawal, uncomplicated; F13.20 Sedative, hypnotic or anxiolytic dependence, uncomplicated; F14.20 Cocaine dependence, uncomplicated; F17.213 Nicotine dependence, cigarettes, with withdrawal; F51.05 Insomnia due to other mental disorder; F19.24 Other psychoactive substance dependence with psychoactive substance-induced mood disorder; E86.0 Dehydration; J45.20 Mild intermittent asthma, uncomplicated; R63.4 Abnormal weight loss; Z68.1 Body mass index [BMI] 19.9 or less, adult
CPT/HCPCS: 36415; 80053; 81003; 85027; 86593; 93005; 93010; J0735

== ENCOUNTER 2018-09-20 13:57 | Inpatient (IN) | payer OTHER ==
[2018-09-20 15:04] VITALS: BMI 18.4
--- NOTE | 2018-09-20 18:21 | HP ---
COWS - Scale Resting Pulse: 1= [place] 81-100 Sweatin= Chills/Flushing Restless Observation: 3= Extraneous Movement Pupil Size: 0= Normal to Room Light Bone or Joint Aches: 4=Acute Joint/Muscle Pain Runny Nose/ Eye Tearin= Constantly Teary/Runny GI Upset > 30mins: 0= None Tremor Observation: 0= None Yawning Observation: 1= 1-2x During Session Anxiety or Irritability: 1=Feels Anxious/Irritable Goose Flesh Skin: 0=Smooth Skin COWS Score: 15 CIWA Score - Admission Criteria OASAS Guidelines: Admission for Medically Managed Detox: Requires at least one of the followin. CIWA greater than 12 2. Seizures within the past 24 hours 3. Delirium tremens within the past 24 hours 4. Hallucinations within the past 24 hours 5. Acute intervention needed for co occurring medical disorder 6. Acute intervention needed for co occurring psychiatric disorder 7. Severe withdrawal that cannot be handled at a lower level of care (continued vomiting, continued diarrhea, abnormal vital signs) requiring intravenous medication and/or fluids 8. Admission ROS [facility] Allergies/Adverse Reactions: Allergies Allergy/AdvReac Type Severity Reaction Status Date / Time Fish Containing Products Allergy Severe Verified 02/04/18 20:10 No Known Drug Allergies Allergy Verified 09/20/18 18:48 History of Present Illness: Reference #: [id number] Others' Prescriptions Patient Name: Pablo Lopez Date: 1985 Address: [address] [place] [address] Sex: Male Rx Written Rx Dispensed Drug Quantity Days Supply Prescriber Name 03/01/2018 03/01/2018 alprazolam 1 mg tablet 30 30 Kurt Dietrich MD 01/31/2018 01/31/2018 alprazolam 1 mg tablet 30 30 Kurt Dietrich MD 10/19/2017 10/19/2017 alprazolam 1 mg tablet 30 30 Kurt Dietrich MD 10/18/2017 10/18/2017 clonazepam 1 mg tablet 30 30 MohKurt romo MD Patient Name: Pablo Lopez Date: 1985 Address: [address] [place] [address] Sex: Male Rx Written Rx Dispensed Drug Quantity Days Supply Prescriber Name 01/01/2018 01/01/2018 alprazolam 1 mg tablet 30 30 Kurt Dietrich MD 11/30/2017 11/30/2017 alprazolam 1 mg tablet 30 30 Kurt Dietrich MD 11/15/2017 11/15/2017 alprazolam 1 mg tablet 14 14 Kurt Dietrich MD pt here requesting deotx from opiate use cocaine : 50--60 $ /day x 10 years denies IVDU heroin : 70-80 $/day deneis IVDU , first use 10 years ago , longest sobriety x 8 mo w/ going to program , working , family , latest use yesterday , current symptoms as above , OD x 2 , latest 1 week ago , narcan by EMS , taken to [facility] etoh - denies xanax - 2 days ago , took 1 mg , denies seizures tobacco : 1/2 ppd . PMhx : denies , reports wt loss 40 lbs in the last 3 mo PShx : denies Meds : denies Psych ; insomnia , denies SI / HI . Exam Limitations: Clinical Condition - Ebola screening Have you traveled outside of the country in the last 21 days: No Have you had contact with anyone from an Ebola affected area: No Have you been sick,other than usual withdrawal symptoms: No Do you have a fever: No - Review of Systems Constitutional: See HPI EENT: reports: See HPI Respiratory: reports: No Symptoms reported Cardiac: reports: No Symptoms Reported GI: reports: No Symptoms Reported : reports: No Symptoms Reported Musculoskeletal: reports: See HPI, Muscle Pain Integumentary: reports: No Symptoms Reported Neuro: reports: No Symptoms reported Endocrine: reports: No Symptoms Reported Psychiatric: reports: Orientated x3, Agitated, Anxious Patient History - Patient Medical History Hx Anemia: No Hx Asthma: Yes (uses albuterol inhaler) Hx Chronic Obstructive Pulmonary Disease (COPD): No Hx Cancer: No Hx Cardiac Disorders: No Hx Congestive Heart Failure: No Hx Hypertension: No Hx Hypercholesterolemia: No Hx Pacemaker: No HX Cerebrovascular Accident: No Hx Seizures: No Hx Dementia: No Hx Diabetes: No Hx Gastrointestinal Disorders: No Hx Liver Disease: No Hx Genitourinary Disorders: No Hx Sexually Transmitted Disorders: No Hx Renal Disease (ESRD): No Hx Thyroid Disease: No Hx Human Immunodeficiency Virus (HIV): No (lst negative 09/03) Hx Hepatitis C: No Hx Depression: Yes (anxiety ) Hx Suicide Attempt: No Hx Bipolar Disorder: Yes Hx Schizophrenia: No - Patient Surgical History Past Surgical History: No Hx Neurologic Surgery: No Hx Cataract Extraction: No Hx Cardiac Surgery: No Hx Lung Surgery: No Hx Breast Surgery: No Hx Breast Biopsy: No Hx Abdominal Surgery: No Hx Appendectomy: No Hx Cholecystectomy: No Hx Genitourinary Surgery: No Hx Section: No Hx Orthopedic Surgery: No Anesthesia Reaction: No - PPD History Date: 10/29/17 Results: 0 mm - Smoking Cessation Smoking history: Current every day smoker Have you smoked in the past 12 months: Yes Aproximately how many cigarettes per day: 10 Hx Chewing Tobacco Use: No Initiated information on smoking cessation: No Family Disease History - Family Disease History Family Disease History: Heart Disease: Father (living, HTN, hx etoh), Other: Father, Mother (living, healthy, ), Brother (one - living - healthy), Sister ( one - living - healthy), Daughter (two - living - healthy) Admission Physical Exam [facility] - Vital Signs Vital Signs: Vital Signs - 24 hr 09/20/18 15:02 Temperature 98.2 F Pulse Rate 89 Respiratory 18 Rate Blood Pressure 125/72 - Physical General Appearance: Yes: Moderate Distress, Irritable, Anxious HEENTM: Yes: EOMI, Hearing grossly Normal, Normocephalic, Normal Voice, Nasal Congestion, Rhinorrhea Respiratory: Yes: Chest Non-Tender, Lungs Clear, Normal Breath Sounds Neck: Yes: No masses,lesions,Nodules, Trachea in good position Cardiology: Yes: Regular Rhythm, Regular Rate, S1, S2 Abdominal: Yes: Normal Bowel Sounds, Soft Genitourinary: Yes: Within Normal Limits Back: Yes: Normal Inspection Musculoskeletal: Yes: Gait Steady Extremities: Yes: Normal Capillary Refill, Normal Range of Motion, Tremors - Diagnostic (1) Cocaine dependence Current Visit: Yes Status: Chronic Qualifiers: Substance use status: uncomplicated Qualified Code(s): F14.20 - Cocaine dependence, uncomplicated (2) Nicotine dependence Current Visit: Yes Status: Chronic Qualifiers: Nicotine product type: cigarettes Substance use status: in withdrawal Qualified Code(s): F17.213 - Nicotine dependence, cigarettes, with withdrawal (3) Opioid dependence with withdrawal Current Visit: Yes Status: Acute (4) Weight loss Current Visit: No Status: Chronic BHS Breath Alcohol Content Breath Alcohol Content: 0 Urine Drug Screen - Results Drug Screen Negative: No Urine Drug Screen Results: AMINA-Cocaine, OPI-Opiates Inpatient Rehab Admission - Rehab Decision to Admit Inpatient rehab admission?: No
[2018-09-20] MEDS ORDERED: MAG HYDROX/AL HYDROX/SIMETH 30 ML UNIT-DOSE CUP PO PRN (18:33)
[2018-09-20] MEDS ORDERED: ACETAMINOPHEN 325 MG TABLET (FP) PO PRN ×2 (18:33)
[2018-09-20] MEDS ORDERED: MENTHOL/PHENOL 1 EACH UD MM PRN (18:33)
[2018-09-20] MEDS ORDERED: MELATONIN 5 MG TABLETS PO PRN (18:33)
[2018-09-20] MEDS ORDERED: NICOTINE POLACRILEX 2 MG GUM BUC PRN (18:33)
[2018-09-20] MEDS ORDERED: MAGNESIUM CITRATE 300 ML BOTTLE PO PRN (18:33)
[2018-09-20] MEDS ORDERED: METHOCARBAMOL 500 MG TABLET PO PRN (18:33)
[2018-09-20] MEDS ORDERED: BISMUTH SUBSALICYLATE 524 MG/30 ML UD PO PRN (18:33)
[2018-09-20] MEDS ORDERED: MAGNESIUM HYDROX 2400MG/30ML ORAL SUSPENSION 30 ML CUP PO PRN (18:33)
[2018-09-20] MEDS: THIAMINE HCL 100 MG TABLET (FP) PO SCH (21:56)
[2018-09-20] MEDS: QUEtiapine FUMARATE 25 MG TABLET (FP) PO PRN (21:56)
[2018-09-20] MEDS ORDERED: METHADONE HCL 10 MG TABLET (FOR DETOX USE ONLY) PO ONE (23:00)
[2018-09-21] MEDS ORDERED: METHADONE HCL 10 MG TABLET (FOR DETOX USE ONLY) PO ONE (10:00)
[2018-09-21] MEDS: PRENATAL VITAMINS W/ FOLIC ACID TABLET (FP) PO SCH (10:43)
[2018-09-21 10:54] LABS: HEMATOCRIT 42.6 % (35.4-49); HEMOGLOBIN 14.8 GM/dL (11.7-16.9); MCH 33.2 pg (25.7-33.7); MCHC 34.7 g/dl (32.0-35.9); MEAN CELL VOLUME 95.8 fl (80-96); MEAN PLT VOLUME 9.4 fl (7.5-11.1); PLATELET COUNT 181 K/MM3 (134-434); RBC 4.45 M/mm3 (4.00-5.60); RDW 13.5 % (11.9-15.9); WHITE BLOOD COUNT 6.6 K/mm3 (4.0-10.0)
[2018-09-21 11:21] LABS: ALBUMIN 3.3 g/dl (3.4-5.0); ALK PHOS 89 U/L (45-117); ANION GAP 2 MMOL/L (8-16); BILIRUBIN,TOTAL 0.3 mg/dL (0.2-1); BLOOD UREA NITROGEN 10 mg/dL (7-18); CALCIUM 8.3 mg/dL (8.5-10.1); CHLORIDE 109 mmol/L (98-107); CO2 28 mmol/L (21-32); CREATININE 0.9 mg/dL (0.55-1.3); GLUCOSE,RANDOM 84 mg/dL (74-106); SGOT/AST < 3 U/L (15-37); SGPT/ALT 38 U/L (13-61); SODIUM 139 mmol/L (136-145); TOT PROT 6.9 g/dl (6.4-8.2)
--- NOTE | 2018-09-21 13:30 | PN ---
BHS COWS - Scale Resting Pulse: 1= [place] 81-100 Sweatin=Flushed/Facial Moisture Restless Observation: 1= Difficult to Sit Still Pupil Size: 0= Normal to Room Light Bone or Joint Aches: 2= Severe Diffuse Aches Runny Nose/ Eye Tearin= Runny Nose/Eyes GI Upset > 30mins: 1= Stomach Cramp Tremor Observation of Outstretched Hands: 2= Slight Tremor Visible Yawning Observation: 2= >3x During Session Anxiety or Irritability: 2=Irritable/Anxious Goose Flesh Skin: 0=Smooth Skin COWS Score: 15 BHS Progress Note (SOAP) Subjective: sweats shakes chills irritable agitation body aches Objective: 09/21/18 13:29 Vital Signs Temperature 97.2 F L 09/21/18 13:21 Pulse Rate 91 H 09/21/18 13:21 Respiratory Rate 18 09/21/18 13:21 Blood Pressure 119/72 09/21/18 13:21 O2 Sat by Pulse Oximetry (%) Laboratory Tests 09/21/18 09/21/18 07:00 07:00 WBC 6.6 RBC 4.45 Hgb 14.8 Hct 42.6 MCV 95.8 MCH 33.2 MCHC 34.7 RDW 13.5 Plt Count 181 MPV 9.4 Sodium 139 Potassium 4.0 Chloride 109 H Carbon Dioxide 28 Anion Gap 2 L BUN 10 Creatinine 0.9 Creat Clearance w eGFR > 60 Random Glucose 84 Calcium 8.3 L Total Bilirubin 0.3 AST < 3 L ALT 38 Alkaline Phosphatase 89 Total Protein 6.9 Albumin 3.3 L aaox3 ambulating no acute distress Assessment: 09/21/18 13:30 withdrawal sx Plan: continue detox increase fluids
[2018-09-21] MEDS: IBUPROFEN 400 MG TABLET (FP) PO PRN (14:59)
[2018-09-21] MEDS: hydrOXYzine PAMOATE 25 MG CAPSULE (FP) PO PRN (15:02)
[2018-09-21] MEDS: QUEtiapine FUMARATE 25 MG TABLET (FP) PO PRN (23:11)
[2018-09-21] MEDS: THIAMINE HCL 100 MG TABLET (FP) PO SCH (23:11)
[2018-09-22] MEDS ORDERED: METHADONE HCL 10 MG TABLET (FOR DETOX USE ONLY) PO ONE (10:00)
[2018-09-22] MEDS: PRENATAL VITAMINS W/ FOLIC ACID TABLET (FP) PO SCH (10:54)
[2018-09-22] MEDS: hydrOXYzine PAMOATE 25 MG CAPSULE (FP) PO PRN ×2 (10:57→22:32)
[2018-09-22] MEDS: IBUPROFEN 400 MG TABLET (FP) PO PRN ×2 (10:58→22:33)
--- NOTE | 2018-09-22 13:30 | PN ---
B[facility] COWS - Scale Resting Pulse: 1= [place] 81-100 Sweatin=Flushed/Facial Moisture Restless Observation: 1= Difficult to Sit Still Pupil Size: 0= Normal to Room Light Bone or Joint Aches: 1= Mild Discomfort Runny Nose/ Eye Tearin= Nasal Congestion GI Upset > 30mins: 1= Stomach Cramp Tremor Observation of Outstretched Hands: 2= Slight Tremor Visible Yawning Observation: 1= 1-2x During Session Anxiety or Irritability: 2=Irritable/Anxious Goose Flesh Skin: 0=Smooth Skin COWS Score: 12 BHS Progress Note (SOAP) Subjective: sweats shakes interrupted sleep body aches irritable Objective: 09/22/18 13:29 Vital Signs Temperature 98.2 F 09/22/18 11:02 Pulse Rate 88 09/22/18 11:02 Respiratory Rate 18 09/22/18 11:02 Blood Pressure 130/73 09/22/18 11:02 O2 Sat by Pulse Oximetry (%) Laboratory Tests 09/21/18 09/21/18 09/21/18 07:00 07:00 07:00 WBC 6.6 RBC 4.45 Hgb 14.8 Hct 42.6 MCV 95.8 MCH 33.2 MCHC 34.7 RDW 13.5 Plt Count 181 MPV 9.4 Sodium 139 Potassium 4.0 Chloride 109 H Carbon Dioxide 28 Anion Gap 2 L BUN 10 Creatinine 0.9 Creat Clearance w eGFR > 60 Random Glucose 84 Calcium 8.3 L Total Bilirubin 0.3 AST < 3 L ALT 38 Alkaline Phosphatase 89 Total Protein 6.9 Albumin 3.3 L RPR Titer Nonreactive aaox3 ambulating no acute distress Assessment: 09/22/18 13:29 withdrawal sx Plan: continue detox increase fluids
[2018-09-22] MEDS: QUEtiapine FUMARATE 25 MG TABLET (FP) PO PRN (22:33)
[2018-09-22] MEDS: THIAMINE HCL 100 MG TABLET (FP) PO SCH (22:55)
[2018-09-23] MEDS ORDERED: METHADONE HCL 10 MG TABLET (FOR DETOX USE ONLY) PO ONE (10:00)
[2018-09-23] MEDS: PRENATAL VITAMINS W/ FOLIC ACID TABLET (FP) PO SCH (10:47)
[2018-09-23] MEDS: hydrOXYzine PAMOATE 25 MG CAPSULE (FP) PO PRN ×2 (10:48→22:15)
[2018-09-23] MEDS: IBUPROFEN 400 MG TABLET (FP) PO PRN ×2 (10:52→22:15)
--- NOTE | 2018-09-23 16:19 | PN ---
S Progress Note (SOAP) Subjective: Sweating, tremor, interrupted sleep Objective: 09/23/18 16:18 Last Vital Signs Temp Pulse Resp BP Pulse Ox 98.3 F 75 18 120/52 L 09/23/18 14:10 09/23/18 14:10 09/23/18 14:10 09/23/18 14:10 Laboratory Tests 09/21/18 09/21/18 09/21/18 07:00 07:00 07:00 WBC 6.6 RBC 4.45 Hgb 14.8 Hct 42.6 MCV 95.8 MCH 33.2 MCHC 34.7 RDW 13.5 Plt Count 181 MPV 9.4 Sodium 139 Potassium 4.0 Chloride 109 H Carbon Dioxide 28 Anion Gap 2 L BUN 10 Creatinine 0.9 Creat Clearance w eGFR > 60 Random Glucose 84 Calcium 8.3 L Total Bilirubin 0.3 AST < 3 L ALT 38 Alkaline Phosphatase 89 Total Protein 6.9 Albumin 3.3 L RPR Titer Nonreactive Labs reviewed Assessment: 09/23/18 16:19 Withdrawal symptoms Plan: Continue detox Encouraged PO water hydration
[2018-09-23] MEDS: THIAMINE HCL 100 MG TABLET (FP) PO SCH (22:15)
[2018-09-23] MEDS: QUEtiapine FUMARATE 25 MG TABLET (FP) PO PRN (22:16)
[2018-09-24] MEDS ORDERED: METHADONE HCL 5 MG TABLET (FOR DETOX USE ONLY) PO ONE (06:00)
--- NOTE | 2018-09-24 09:19 | DS ---
[facility] Detox Discharge Summary Admission Date: 09/20/18 Discharge Date: 09/24/18 - History Present History: Alcohol Dependence, Cocaine Dependence, Opioid Dependence, Sedative Dependence - Physical Exam Results Vital Signs: Vital Signs Temperature 97.7 F 09/24/18 06:00 Pulse Rate 70 09/24/18 06:00 Respiratory Rate 16 09/24/18 06:00 Blood Pressure 110/60 09/24/18 06:00 O2 Sat by Pulse Oximetry (%) - Treatment Hospital Course: Detox Protocol Followed, Detoxed Safely, Responded well, Discharged Condition Good, Rehab Referral Accepted - Medication Discharge Medications: Ambulatory Orders Albuterol Sulfate Inhaler - [Ventolin HFA Inhaler -] 1 - 2 puff IH Q4H PRN #1 inhaler 11/01/17 Quetiapine Fumarate [Seroquel] 100 mg PO HS #30 tablet 11/01/17 - Diagnosis (1) Opioid dependence with withdrawal Current Visit: Yes Status: Chronic (2) Cocaine dependence Current Visit: Yes Status: Chronic Qualifiers: Substance use status: uncomplicated Qualified Code(s): F14.20 - Cocaine dependence, uncomplicated (3) Nicotine dependence Current Visit: Yes Status: Chronic Qualifiers: Nicotine product type: cigarettes Substance use status: uncomplicated Qualified Code(s): F17.210 - Nicotine dependence, cigarettes, uncomplicated (4) Alcohol dependence with uncomplicated withdrawal Current Visit: Yes Status: Chronic (5) Benzodiazepine dependence Current Visit: Yes Status: Chronic (6) Dehydration Current Visit: No Status: Acute (7) Insomnia Current Visit: No Status: Acute Qualifiers: Insomnia type: unspecified Qualified Code(s): G47.00 - Insomnia, unspecified (8) Substance induced mood disorder Current Visit: No Status: Acute (9) Anxiety Current Visit: No Status: Chronic (10) Asthma Current Visit: Yes Status: Chronic Qualifiers: Asthma severity: mild Asthma persistence: intermittent Asthma complication type: uncomplicated Qualified Code(s): J45.20 - Mild intermittent asthma, uncomplicated (11) Cachexia Current Visit: No Status: Chronic (12) Insomnia secondary to depression with anxiety Current Visit: No Status: Chronic (13) Weight loss Current Visit: No Status: Chronic - AMA Did Patient Leave Against Medical Advice: No (referred to out patient rehab)
[2018-09-24 09:34] VITALS: BP 139/64; PULSE 96; TEMP 99.1
== END 2018-09-24 09:21 | disposition home or self-care (01) | DRG 773 ==
LOC: YASAS 13:57 → Y6N 20:10
PROVIDERS: ADMIT Surgery; ATTEND Surgery
PROC: HZ2ZZZZ Detoxification Services for Substance Abuse Treatment (ICD-10-PCS; principal; 2018-09-20)
DX: F11.23 Opioid dependence with withdrawal (principal); F10.230 Alcohol dependence with withdrawal, uncomplicated; F13.20 Sedative, hypnotic or anxiolytic dependence, uncomplicated; F14.20 Cocaine dependence, uncomplicated; F17.210 Nicotine dependence, cigarettes, uncomplicated; F19.24 Other psychoactive substance dependence with psychoactive substance-induced mood disorder; F41.9 Anxiety disorder, unspecified; F51.05 Insomnia due to other mental disorder; E86.0 Dehydration; G47.00 Insomnia, unspecified; R64 Cachexia; J45.909 Unspecified asthma, uncomplicated; Z91.013 Allergy to seafood; Z59.0 Homelessness
CPT/HCPCS: 36415; 80053; 85027; 86593

== ENCOUNTER 2018-11-06 14:54 | Inpatient (IN) | payer OTHER ==
[2018-11-06 19:32] VITALS: BMI 18.8
--- NOTE | 2018-11-06 20:18 | HP ---
COWS - Scale Resting Pulse: 1= [place] 81-100 Sweatin=Flushed/Facial Moisture Restless Observation: 0= Sits Still Pupil Size: 1= Pupils >than Normal Bone or Joint Aches: 4=Acute Joint/Muscle Pain Runny Nose/ Eye Tearin= Runny Nose/Eyes GI Upset > 30mins: 1= Stomach Cramp Tremor Observation: 2= Slight Tremor Visible Yawning Observation: 0= None Anxiety or Irritability: 4=Extreme Anxiety Goose Flesh Skin: 0=Smooth Skin COWS Score: 17 CIWA Score Nausea/Vomitin-Mild Nausea/No Vomiting Muscle Tremors: 4-Moderate,w/Arms Extend Anxiety: 4-Mod. Anxious/Guarded Agitation: 4-Moderately Restless Paroxysmal Sweats: 2 Orientation: 2-Disoriented Date<2 days Tacttile Disturbances: 0-None Auditory Disturbances: 0-None Visual Disturbances: 0-None Headache: 2-Mild CIWA-Ar Total Score: 19 - Admission Criteria OASAS Guidelines: Admission for Medically Managed Detox: Requires at least one of the followin. CIWA greater than 12 2. Seizures within the past 24 hours 3. Delirium tremens within the past 24 hours 4. Hallucinations within the past 24 hours 5. Acute intervention needed for co occurring medical disorder 6. Acute intervention needed for co occurring psychiatric disorder 7. Severe withdrawal that cannot be handled at a lower level of care (continued vomiting, continued diarrhea, abnormal vital signs) requiring intravenous medication and/or fluids 8. Admission ROS [facility] Chief Complaint: Heroin and benzo. withdrawal symptoms Allergies/Adverse Reactions: Allergies Allergy/AdvReac Type Severity Reaction Status Date / Time No Known Drug Allergies Allergy Verified 09/20/18 20:00 History of Present Illness: 32 years old male with a long history of benzodiazepine and heroin dependence is seeking admission to detox. Patient was in detox 09/20/2018 - 09/24/2018 and reports a year of sobriety. He has medical history of asthma, depression and anxiety. Patient reports that he overdosed 2 weeks ago. Denies suicide attempt or suicidal ideation at this time Exam Limitations: No Limitations - Ebola screening Have you traveled outside of the country in the last 21 days: No Have you had contact with anyone from an Ebola affected area: No Have you been sick,other than usual withdrawal symptoms: No Do you have a fever: No - Review of Systems Constitutional: Chills, Loss of Appetite, Changes in sleep EENT: reports: Nose Congestion Respiratory: reports: No Symptoms reported Cardiac: reports: No Symptoms Reported GI: reports: Poor Appetite, Poor Fluid Intake, Abdominal cramping : reports: No Symptoms Reported Musculoskeletal: reports: Muscle Pain Integumentary: reports: Dryness, Flushing Neuro: reports: Headache, Tremors Endocrine: reports: No Symptoms Reported Hematology: reports: No Symptoms Reported Psychiatric: reports: Anxious, Depressed Other Systems: Reviewed and Negative Patient History - Patient Medical History Hx Anemia: No Hx Asthma: Yes (Albuterol inhaler) Hx Chronic Obstructive Pulmonary Disease (COPD): No Hx Cancer: No Hx Cardiac Disorders: No Hx Congestive Heart Failure: No Hx Hypertension: No Hx Hypercholesterolemia: No Hx Pacemaker: No HX Cerebrovascular Accident: No Hx Seizures: No Hx Dementia: No Hx Diabetes: No Hx Gastrointestinal Disorders: No Hx Liver Disease: No Hx Genitourinary Disorders: No Hx Sexually Transmitted Disorders: No Hx Renal Disease (ESRD): No Hx Thyroid Disease: No Hx Human Immunodeficiency Virus (HIV): No (Negative 09/03) Hx Hepatitis C: No Hx Depression: Yes (Not on medication) Hx Suicide Attempt: No Hx Bipolar Disorder: Yes Hx Schizophrenia: No Other Medical History: Anxiety - Not on medication - Patient Surgical History Past Surgical History: No Hx Orthopedic Surgery: No - PPD History Previous Implant?: Yes Documented Results: Negative w/proof Implanted On Prior [facility] Admission?: Yes Date: 10/29/17 Results: 0 mm PPD to be Administered?: Yes - Reproductive History Patient is a Female of Child Bearing Age (11 -55 yrs old): No ([facility]) - Smoking Cessation Smoking history: Current every day smoker Have you smoked in the past 12 months: Yes Aproximately how many cigarettes per day: 10 Hx Chewing Tobacco Use: No Initiated information on smoking cessation: Yes 'Breaking Loose' booklet given: 11/06/18 - Substance & Tx. History Hx Alcohol Use: No Hx Substance Use: Yes Substance Use Type: Cocaine, Heroin, Opiates Hx Substance Use Treatment: Yes ([facility]) - Substances abused Heroin Substance route: Inhalation Frequency: Daily Amount used: 6 bags Age of first use: 19 Date of last use: 11/05/18 Alprazolam (Xanax) Substance route: Oral Frequency: Daily Amount used: 4 mg Age of first use: 15 Date of last use: 11/06/18 Crack Substance route: Smoking Frequency: Daily Amount used: $100 Age of first use: 18 Date of last use: 11/05/18 Family Disease History - Family Disease History Family Disease History: Heart Disease: Father (living, HTN, hx etoh), Other: Father, Mother (living, healthy, ), Brother (one - living - healthy), Sister ( one - living - healthy), Daughter (two - living - healthy) Admission Physical Exam [facility] - Vital Signs Vital Signs: Vital Signs - 24 hr 11/06/18 19:28 Temperature 97.4 F L Pulse Rate 87 Respiratory 18 Rate Blood Pressure 113/81 - Physical General Appearance: Yes: Moderate Distress, Tremorous, Irritable, Anxious HEENTM: Yes: Normal Voice, CLARA, Nasal Congestion Respiratory: Yes: Lungs Clear, Normal Breath Sounds, No Respiratory Distress Neck: Yes: Supple Breast: Yes: Breast Exam Deferred Cardiology: Yes: Regular Rhythm, Regular Rate Abdominal: Yes: Normal Bowel Sounds, Soft Genitourinary: Yes: Within Normal Limits Back: Yes: Normal Inspection Extremities: Yes: Tremors Neurological: Yes: Alert, Normal Mood/Affect Integumentary: Yes: Warm Lymphatic: Yes: Within Normal Limits - Diagnostic (1) Anxiety Current Visit: Yes Status: Chronic (2) Asthma Current Visit: Yes Status: Chronic Qualifiers: Asthma severity: mild Asthma persistence: intermittent Asthma complication type: uncomplicated Qualified Code(s): J45.20 - Mild intermittent asthma, uncomplicated (3) Benzodiazepine dependence Current Visit: Yes Status: Chronic (4) Cocaine dependence Current Visit: Yes Status: Chronic Qualifiers: Substance use status: uncomplicated Qualified Code(s): F14.20 - Cocaine dependence, uncomplicated (5) Nicotine dependence Current Visit: Yes Status: Chronic Qualifiers: Nicotine product type: cigarettes Substance use status: uncomplicated Qualified Code(s): F17.210 - Nicotine dependence, cigarettes, uncomplicated (6) Opioid dependence with withdrawal Current Visit: Yes Status: Chronic Cleared for Admission [facility] - Detox or Rehab [facility] Level of Care: Medically Managed Detox Regimen/Protocol: Methadone/Valium Breathalyzer - Breathalyzer Breathalyzer: 0 Urine Drug Screen - Test Device Lot number: [id number] Expiration date: 06/15/20 - Control Is test valid?: Yes - Results Drug screen NEGATIVE: No Urine drug screen results: AMINA-Cocaine, MET-Methamphetamine, FEN-Fentanyl, OXY- Oxycodone, MTD-Methadone, BZO-Benzodiazepines Inpatient Rehab Admission - Rehab Decision to Admit Inpatient rehab admission?: No
[2018-11-06] MEDS ORDERED: NICOTINE POLACRILEX 2 MG GUM BUC PRN (20:29)
[2018-11-06] MEDS ORDERED: MAGNESIUM HYDROX 2400MG/30ML ORAL SUSPENSION 30 ML CUP PO PRN (20:29)
[2018-11-06] MEDS ORDERED: IBUPROFEN 400 MG TABLET (FP) PO PRN (20:29)
[2018-11-06] MEDS ORDERED: BISMUTH SUBSALICYLATE 524 MG/30 ML UD PO PRN (20:29)
[2018-11-06] MEDS ORDERED: ACETAMINOPHEN 325 MG TABLET (FP) PO PRN ×2 (20:29)
[2018-11-06] MEDS ORDERED: MAGNESIUM CITRATE 300 ML BOTTLE PO PRN (20:29)
[2018-11-06] MEDS ORDERED: hydrOXYzine PAMOATE 25 MG CAPSULE (FP) PO PRN (20:29)
[2018-11-06] MEDS ORDERED: MAG HYDROX/AL HYDROX/SIMETH 30 ML UNIT-DOSE CUP PO PRN (20:29)
[2018-11-06] MEDS ORDERED: cloNIDine HCL 0.1 MG TABLET PO PRN (20:29)
[2018-11-06] MEDS ORDERED: METHOCARBAMOL 500 MG TABLET PO PRN (20:29)
[2018-11-06] MEDS ORDERED: ALBUTEROL SO4 8 GM HFA INHALER IH PRN (20:32)
[2018-11-06] MEDS: THIAMINE HCL 100 MG TABLET (FP) PO SCH (21:39)
[2018-11-06] MEDS: diazePAM 5 MG TABLET PO SCH (21:39)
[2018-11-06] MEDS ORDERED: METHADONE HCL 10 MG TABLET (FOR DETOX USE ONLY) PO ONE (23:00)
[2018-11-07] MEDS: diazePAM 5 MG TABLET PO SCH ×3 (05:14→22:07)
--- NOTE | 2018-11-07 09:53 | PN ---
[facility] CIWA - CIWA Score Nausea/Vomitin-Mild Nausea/No Vomiting Muscle Tremors: 3 Anxiety: 3 Agitation: 3 Paroxysmal Sweats: 1-Minimal Palms Moist Orientation: 2-Disoriented Date<2 days Tacttile Disturbances: 0-None Auditory Disturbances: 0-None Visual Disturbances: 0-None Headache: 1-Very Mild CIWA-Ar Total Score: 14 BHS COWS - Scale Resting Pulse: 1= [place] 81-100 Sweatin= Chills/Flushing Restless Observation: 1= Difficult to Sit Still Pupil Size: 0= Normal to Room Light Bone or Joint Aches: 2= Severe Diffuse Aches Runny Nose/ Eye Tearin= Runny Nose/Eyes GI Upset > 30mins: 2= Nausea/Diarrhea Tremor Observation of Outstretched Hands: 2= Slight Tremor Visible Yawning Observation: 2= >3x During Session Anxiety or Irritability: 1=Feels Anxious/Irritable Goose Flesh Skin: 0=Smooth Skin COWS Score: 14 [facility] Progress Note (SOAP) Subjective: body aches trouble sleep at night methadone helping withdrawal mild indigestion Objective: 11/07/18 09:53 Vital Signs Temperature 98.1 F 11/07/18 09:25 Pulse Rate 91 H 11/07/18 09:25 Respiratory Rate 18 11/07/18 09:25 Blood Pressure 138/72 11/07/18 09:25 O2 Sat by Pulse Oximetry (%) 11/07/18 09:53 lab pending Assessment: 11/07/18 09:53 benzo and opiate withdrawal sx Plan: continue detox
[2018-11-07] MEDS ORDERED: METHADONE HCL 10 MG TABLET (FOR DETOX USE ONLY) PO ONE (10:00)
[2018-11-07] MEDS: PRENATAL VITAMINS W/ FOLIC ACID TABLET (FP) PO SCH (10:07)
[2018-11-07] MEDS: NICOTINE 14 MG/24 HOURS TOPICAL PATCH TD SCH (10:08)
[2018-11-07 12:09] LABS: HEMATOCRIT 40.6 % (35.4-49); HEMOGLOBIN 13.9 GM/dL (11.7-16.9); MCH 32.4 pg (25.7-33.7); MCHC 34.2 g/dl (32.0-35.9); MEAN CELL VOLUME 94.9 fl (80-96); MEAN PLT VOLUME 9.5 fl (7.5-11.1); PLATELET COUNT 163 K/MM3 (134-434); RBC 4.28 M/mm3 (4.00-5.60); RDW 13.5 % (11.9-15.9); WHITE BLOOD COUNT 7.8 K/mm3 (4.0-10.0)
[2018-11-07 12:13] LABS: ALBUMIN 3.1 g/dl (3.4-5.0); ALK PHOS 72 U/L (45-117); ANION GAP 6 MMOL/L (8-16); BILIRUBIN,TOTAL 0.2 mg/dL (0.2-1); BLOOD UREA NITROGEN 9 mg/dL (7-18); CALCIUM 8.6 mg/dL (8.5-10.1); CHLORIDE 106 mmol/L (98-107); CO2 28 mmol/L (21-32); CREATININE 0.7 mg/dL (0.55-1.3); GLUCOSE,RANDOM 69 mg/dL (74-106); POTASSIUM 4.1 mmol/L (3.5-5.1); SGOT/AST 14 U/L (15-37); SGPT/ALT 17 U/L (13-61); SODIUM 140 mmol/L (136-145); TOT PROT 5.5 g/dl (6.4-8.2)
[2018-11-07] MEDS: diazePAM 5 MG TABLET PO PRN (17:23)
--- NOTE | 2018-11-07 18:28 | CONSULT ---
[facility] Psychiatric Consult - Data Date of interview: 11/07/18 Admission source: [facility] Identifying data: Readmission to [facility] for this 32 y/o male self- referred for detoxification (heroin, cocaine, benzodiazepine). Interviewed at [address] [place] [address]. Patient is single, a father of one, domiciled, unemployed and supported by relatives. Substance Abuse History: Discussed in this session. Details in current [facility] report : Smoking history: Current every day smoker. Have you smoked in the past 12 months: Yes. Aproximately how many cigarettes per day: 10. Hx Chewing Tobacco Use: No. Initiated information on smoking cessation: Yes. 'Breaking Loose' booklet given: 11/06/18. - Substance & Tx. History. Hx Alcohol Use: No. Hx Substance Use: Yes. Substance Use Type: Cocaine, Heroin, Opiates. Hx Substance Use Treatment: Yes ([facility]). - Substances abused. Heroin. Substance route: Inhalation. Frequency: Daily. Amount used: 6 bags. Age of first use: 19. Date of last use: 11/05/18. Alprazolam (Xanax). Substance route: Oral. Frequency: Daily. Amount used: 4 mg. Age of first use: 15. Date of last use: 11/06/18. Crack. Substance route: Smoking. Frequency: Daily. Amount used: $100. Age of first use: 18. Date of last use: 11/05/18 Medical History: Remarkable for bronchial asthma. Psychiatric History: Patient denies history of psychiatric hospitalizations. Reportedly diagnosed with Bipolar Disorder + Anxiety Disorder.Managed with seroquel 50 mg/hs for insomnia. Chronically non-adherent to OPD care. Mr Lopez denies history of suicide attempts. Physical/Sexual Abuse/Trauma History: No history. Additional Comment: Urine drug screen results: AMINA-Cocaine, MET-Methamphetamine , FEN-Fentanyl, OXY-Oxycodone, MTD-Methadone, BZO-Benzodiazepines. Noted. Mental Status Exam - Mental Status Exam Alert and Oriented to: Time, Place, Person Cognitive Function: Grossly Intact Patient Appearance: Unkempt, Disheveled Mood: Nervous, Withdrawn, Irritable Affect: Mood Congruent, Constricted Patient Behavior: Fatigued, Uncooperative Speech Pattern: Clear Voice Loudness: Normal Thought Process: Goal Oriented Thought Disorder: Not Present Hallucinations: Denies Suicidal Ideation: Denies Homicidal Ideation: Denies Insight/Judgement: Poor Sleep: Poorly, Difficulty falling asleep Appetite: Good Gait/Station: Other (not observed; in bed during interview) Psychiatric Findings - Problem List ([place] 1, 2,3) (1) Opioid dependence with withdrawal Current Visit: Yes Status: Acute (2) Benzodiazepine dependence Current Visit: Yes Status: Chronic (3) Cocaine dependence Current Visit: Yes Status: Chronic Qualifiers: Substance use status: uncomplicated Qualified Code(s): F14.20 - Cocaine dependence, uncomplicated (4) Nicotine dependence Current Visit: Yes Status: Chronic Qualifiers: Nicotine product type: cigarettes Substance use status: uncomplicated Qualified Code(s): F17.210 - Nicotine dependence, cigarettes, uncomplicated (5) Substance induced mood disorder Current Visit: Yes Status: Chronic (6) Insomnia Current Visit: Yes Status: Chronic Qualifiers: Insomnia type: unspecified Qualified Code(s): G47.00 - Insomnia, unspecified (7) Non-compliance Current Visit: Yes Status: Chronic - Initial Treatment Plan Initial Treatment Plan: Psychoeducation. Sleep hygiene. Detoxification. NA meetings. Seroquel 50 mg po hs. Side effects/benefits discussed with the patient. Mr Lopez agrees with this plan of care. Consent (verbal) given to MD. Shore.
[2018-11-07] MEDS: THIAMINE HCL 100 MG TABLET (FP) PO SCH (22:07)
[2018-11-07] MEDS: QUEtiapine FUMARATE 50 MG TABLET PO SCH (22:07)
[2018-11-07] MEDS: MELATONIN 5 MG TABLETS PO PRN (22:08)
[2018-11-08] MEDS ORDERED: METHADONE HCL 10 MG TABLET (FOR DETOX USE ONLY) PO ONE (10:00)
[2018-11-08] MEDS: PRENATAL VITAMINS W/ FOLIC ACID TABLET (FP) PO SCH (10:17)
[2018-11-08] MEDS: diazePAM 5 MG TABLET PO SCH ×2 (10:17→22:10)
[2018-11-08] MEDS: NICOTINE 14 MG/24 HOURS TOPICAL PATCH TD SCH (10:17)
--- NOTE | 2018-11-08 10:50 | PN ---
[facility] CIWA - CIWA Score Nausea/Vomitin-Mild Nausea/No Vomiting Muscle Tremors: 3 Anxiety: 2 Agitation: 2 Paroxysmal Sweats: 1-Minimal Palms Moist Orientation: 2-Disoriented Date<2 days Tacttile Disturbances: 0-None Auditory Disturbances: 0-None Visual Disturbances: 0-None Headache: 1-Very Mild CIWA-Ar Total Score: 12 S COWS - Scale Resting Pulse: 0= [place] 80 or Below Sweatin= Chills/Flushing Restless Observation: 0= Sits Still Pupil Size: 0= Normal to Room Light Bone or Joint Aches: 1= Mild Discomfort Runny Nose/ Eye Tearin= Nasal Congestion GI Upset > 30mins: 2= Nausea/Diarrhea Tremor Observation of Outstretched Hands: 2= Slight Tremor Visible Yawning Observation: 1= 1-2x During Session Anxiety or Irritability: 2=Irritable/Anxious Goose Flesh Skin: 0=Smooth Skin COWS Score: 10 [facility] Progress Note (SOAP) Subjective: anxious body aches otherwise doing ok Objective: 11/08/18 10:59 Vital Signs Temperature 98.4 F 11/08/18 09:44 Pulse Rate 80 11/08/18 09:44 Respiratory Rate 18 11/08/18 09:44 Blood Pressure 96/61 11/08/18 09:44 O2 Sat by Pulse Oximetry (%) Laboratory Last Values WBC 7.8 K/mm3 (4.0-10.0) 11/07/18 07:30 RBC 4.28 M/mm3 (4.00-5.60) 11/07/18 07:30 Hgb 13.9 GM/dL (11.7-16.9) 11/07/18 07:30 Hct 40.6 % (35.4-49) 11/07/18 07:30 MCV 94.9 fl (80-96) 11/07/18 07:30 MCH 32.4 pg (25.7-33.7) 11/07/18 07:30 MCHC 34.2 g/dl (32.0-35.9) 11/07/18 07:30 RDW 13.5 % (11.9-15.9) 11/07/18 07:30 Plt Count 163 K/MM3 (134-434) 11/07/18 07:30 MPV 9.5 fl (7.5-11.1) 11/07/18 07:30 Sodium 140 mmol/L (136-145) 11/07/18 07:30 Potassium 4.1 mmol/L (3.5-5.1) 11/07/18 07:30 Chloride 106 mmol/L (98-107) 11/07/18 07:30 Carbon Dioxide 28 mmol/L (21-32) 11/07/18 07:30 Anion Gap 6 MMOL/L (8-16) L 11/07/18 07:30 BUN 9 mg/dL (7-18) 11/07/18 07:30 Creatinine 0.7 mg/dL (0.55-1.3) 11/07/18 07:30 Creat Clearance w eGFR 130.69 (>60) 11/07/18 07:30 Random Glucose 69 mg/dL (74-106) L 11/07/18 07:30 Calcium 8.6 mg/dL (8.5-10.1) 11/07/18 07:30 Total Bilirubin 0.2 mg/dL (0.2-1) 11/07/18 07:30 AST 14 U/L (15-37) L 11/07/18 07:30 ALT 17 U/L (13-61) 11/07/18 07:30 Alkaline Phosphatase 72 U/L (45-117) 11/07/18 07:30 Total Protein 5.5 g/dl (6.4-8.2) L 11/07/18 07:30 Albumin 3.1 g/dl (3.4-5.0) L 11/07/18 07:30 RPR Titer Nonreactive (NONREACTIVE) 11/07/18 07:30 lab noted Assessment: 11/08/18 11:00 withdrawal sx Plan: continue detox
[2018-11-08] MEDS: diazePAM 5 MG TABLET PO PRN ×2 (15:15→19:51)
[2018-11-08] MEDS: MENTHOL/PHENOL 1 EACH UD MM PRN (19:52)
[2018-11-08] MEDS: MELATONIN 5 MG TABLETS PO PRN (22:10)
[2018-11-08] MEDS: QUEtiapine FUMARATE 50 MG TABLET PO SCH (22:10)
[2018-11-08] MEDS: THIAMINE HCL 100 MG TABLET (FP) PO SCH (22:10)
[2018-11-09] MEDS ORDERED: diazePAM 5 MG TABLET PO SCH (06:00)
[2018-11-09] MEDS: diazePAM 5 MG TABLET PO PRN ×2 (09:19→13:43)
[2018-11-09] MEDS: PRENATAL VITAMINS W/ FOLIC ACID TABLET (FP) PO SCH (09:19)
[2018-11-09] MEDS: NICOTINE 14 MG/24 HOURS TOPICAL PATCH TD SCH (09:22)
[2018-11-09] MEDS ORDERED: METHADONE HCL 10 MG TABLET (FOR DETOX USE ONLY) PO ONE (10:00)
[2018-11-09] MEDS: MENTHOL/PHENOL 1 EACH UD MM PRN (11:00)
--- NOTE | 2018-11-09 15:12 | PN ---
[facility] CIWA - CIWA Score Nausea/Vomitin-No Nausea/No Vomiting Muscle Tremors: 3 Anxiety: 5 Agitation: 4-Moderately Restless Paroxysmal Sweats: 3 Orientation: 0-Oriented Tacttile Disturbances: 0-None Auditory Disturbances: 0-None Visual Disturbances: 1-Very Mild Sensitivity Headache: 0-None Present CIWA-Ar Total Score: 16 S COWS - Scale Resting Pulse: 2= [place] 101-120 Sweatin= Chills/Flushing Restless Observation: 1= Difficult to Sit Still Pupil Size: 0= Normal to Room Light Bone or Joint Aches: 2= Severe Diffuse Aches Runny Nose/ Eye Tearin= None GI Upset > 30mins: 0= None Tremor Observation of Outstretched Hands: 2= Slight Tremor Visible Yawning Observation: 0= None Anxiety or Irritability: 4=Extreme Anxiety Goose Flesh Skin: 0=Smooth Skin COWS Score: 12 S Progress Note (SOAP) Subjective: Tremors, Body Aches, Anxious, Sweating. Objective: PATIENT A & O X 3, OBSERVED AMBULATING ON UNIT UNASSISTED. IN NO ACUTE DISTRESS. 11/09/18 15:08 Vital Signs Temperature 97.3 F L 11/09/18 13:06 Pulse Rate 71 11/09/18 13:06 Respiratory Rate 18 11/09/18 13:06 Blood Pressure 110/64 11/09/18 13:06 O2 Sat by Pulse Oximetry (%) Laboratory Tests 11/07/18 11/07/18 11/07/18 07:30 07:30 07:30 WBC 7.8 RBC 4.28 Hgb 13.9 Hct 40.6 MCV 94.9 MCH 32.4 MCHC 34.2 RDW 13.5 Plt Count 163 MPV 9.5 Sodium 140 Potassium 4.1 Chloride 106 Carbon Dioxide 28 Anion Gap 6 L BUN 9 Creatinine 0.7 Creat Clearance w eGFR 130.69 Random Glucose 69 L Calcium 8.6 Total Bilirubin 0.2 AST 14 L ALT 17 Alkaline Phosphatase 72 Total Protein 5.5 L Albumin 3.1 L RPR Titer Nonreactive LABS NOTED. Assessment: 11/09/18 15:09 WITHDRAWAL SYMPTOMS. Plan: CONTINUE DETOX. PATIENT SCHEDULED FOR D/C TOMORROW AM. PATIENT WILL LIKELY GO TO [facility] ([place], [place]) STARTING ON 11/12/2018 FOR AFTERCARE.
[2018-11-09] MEDS: THIAMINE HCL 100 MG TABLET (FP) PO SCH (22:03)
[2018-11-09] MEDS: QUEtiapine FUMARATE 50 MG TABLET PO SCH (22:03)
[2018-11-09] MEDS: MELATONIN 5 MG TABLETS PO PRN (22:04)
[2018-11-10] MEDS ORDERED: METHADONE HCL 5 MG TABLET (FOR DETOX USE ONLY) PO ONE (06:00)
[2018-11-10 06:15] VITALS: BP 120/77; PULSE 93; TEMP 96.8
--- NOTE | 2018-11-10 17:38 | DS ---
[facility] Detox Discharge Summary Admission Date: 11/06/18 Discharge Date: 11/10/18 - History Present History: Cocaine Dependence, Opioid Dependence, Sedative Dependence Additional Comments: PATIENT IS GOING TO [facility] ([place], [place]) ON 11/10/2018, TO APPLY FOR ADMISSION TO [facility] FOR AFTERCARE. PATIENT WAS DISCHARGED FROM DETOX UNIT IN STABLE MEDICAL CONDITION. Pertinent Past History: Asthma, Anxiety, Depression, Bipolar Disorder, Insomnia. - Physical Exam Results Vital Signs: Vital Signs Temperature 96.8 F L 11/10/18 06:14 Pulse Rate 93 H 11/10/18 06:14 Respiratory Rate 16 11/10/18 06:14 Blood Pressure 120/77 11/10/18 06:14 O2 Sat by Pulse Oximetry (%) Pertinent Admission Physical Exam Findings: WITHDRAWAL SYMPTOMS. Laboratory Tests 11/07/18 11/07/18 11/07/18 07:30 07:30 07:30 WBC 7.8 RBC 4.28 Hgb 13.9 Hct 40.6 MCV 94.9 MCH 32.4 MCHC 34.2 RDW 13.5 Plt Count 163 MPV 9.5 Sodium 140 Potassium 4.1 Chloride 106 Carbon Dioxide 28 Anion Gap 6 L BUN 9 Creatinine 0.7 Creat Clearance w eGFR 130.69 Random Glucose 69 L Calcium 8.6 Total Bilirubin 0.2 AST 14 L ALT 17 Alkaline Phosphatase 72 Total Protein 5.5 L Albumin 3.1 L RPR Titer Nonreactive LABS NOTED. - Treatment Hospital Course: Detox Protocol Followed, Detoxed Safely, Responded well, Discharged Condition Good Patient has Accepted a Rehab Referral to: PATIENT GOING TO APPLY FOR [facility] - Medication Discharge Medications: Ambulatory Orders Albuterol Sulfate Inhaler - [Ventolin HFA Inhaler -] 1 - 2 puff IH Q4H PRN #1 inhaler 11/01/17 Quetiapine Fumarate [Seroquel] 100 mg PO HS #30 tablet 11/01/17 - Diagnosis (1) Opioid dependence with withdrawal Status: Acute (2) Anxiety Status: Chronic (3) Asthma Status: Chronic Qualifiers: Asthma severity: mild Asthma persistence: intermittent Asthma complication type: uncomplicated Qualified Code(s): J45.20 - Mild intermittent asthma, uncomplicated (4) Benzodiazepine dependence Status: Chronic (5) Cocaine dependence Status: Chronic Qualifiers: Substance use status: uncomplicated Qualified Code(s): F14.20 - Cocaine dependence, uncomplicated (6) Nicotine dependence Status: Chronic Qualifiers: Nicotine product type: cigarettes Substance use status: uncomplicated Qualified Code(s): F17.210 - Nicotine dependence, cigarettes, uncomplicated (7) Insomnia Status: Chronic Qualifiers: Insomnia type: unspecified Qualified Code(s): G47.00 - Insomnia, unspecified (8) Non-compliance Status: Chronic (9) Substance induced mood disorder Status: Chronic - AMA Did Patient Leave Against Medical Advice: No
== END 2018-11-10 09:25 | disposition home or self-care (01) | DRG 773 ==
LOC: YASAS 14:54 → Y3N 21:10
PROVIDERS: ADMIT Surgery; ATTEND Surgery
PROC: HZ2ZZZZ Detoxification Services for Substance Abuse Treatment (ICD-10-PCS; principal; 2018-11-06)
DX: F11.23 Opioid dependence with withdrawal (principal); F13.230 Sedative, hypnotic or anxiolytic dependence with withdrawal, uncomplicated; F14.20 Cocaine dependence, uncomplicated; F17.210 Nicotine dependence, cigarettes, uncomplicated; F19.24 Other psychoactive substance dependence with psychoactive substance-induced mood disorder; F31.9 Bipolar disorder, unspecified; F41.8 Other specified anxiety disorders; G47.00 Insomnia, unspecified; J45.20 Mild intermittent asthma, uncomplicated; Z91.19 Patient's noncompliance with other medical treatment and regimen; Z59.0 Homelessness
CPT/HCPCS: 36415; 80053; 85027; 86593

== ENCOUNTER 2018-11-19 16:26 | Inpatient (IN) | payer OTHER ==
[2018-11-19 18:56] VITALS: BMI 17.6
--- NOTE | 2018-11-19 21:41 | HP ---
COWS - Scale Resting Pulse: 1= [place] 81-100 Sweatin=Flushed/Facial Moisture Restless Observation: 1= Difficult to Sit Still Pupil Size: 1= Pupils >than Normal Bone or Joint Aches: 4=Acute Joint/Muscle Pain Runny Nose/ Eye Tearin= Runny Nose/Eyes GI Upset > 30mins: 1= Stomach Cramp Tremor Observation: 4= Gross Tremor/Twitching Yawning Observation: 0= None Anxiety or Irritability: 4=Extreme Anxiety Goose Flesh Skin: 0=Smooth Skin COWS Score: 20 CIWA Score Nausea/Vomitin-Mild Nausea/No Vomiting Muscle Tremors: 4-Moderate,w/Arms Extend Anxiety: 4-Mod. Anxious/Guarded Agitation: 4-Moderately Restless Paroxysmal Sweats: 3 Orientation: 1-Uncertain about Date Tacttile Disturbances: 0-None Auditory Disturbances: 0-None Visual Disturbances: 0-None Headache: 3-Moderate CIWA-Ar Total Score: 20 - Admission Criteria [facility] Guidelines: Admission for Medically Managed Detox: Requires at least one of the followin. CIWA greater than 12 2. Seizures within the past 24 hours 3. Delirium tremens within the past 24 hours 4. Hallucinations within the past 24 hours 5. Acute intervention needed for co occurring medical disorder 6. Acute intervention needed for co occurring psychiatric disorder 7. Severe withdrawal that cannot be handled at a lower level of care (continued vomiting, continued diarrhea, abnormal vital signs) requiring intravenous medication and/or fluids 8. Admission [facility] Chief Complaint: Heroin and Xanax withdrawal symptoms Allergies/Adverse Reactions: Allergies Allergy/AdvReac Type Severity Reaction Status Date / Time No Known Drug Allergies Allergy Verified 11/19/18 18:44 History of Present Illness: 32 years old male with a long history of benzodiazepine and heroin dependence is seeking admission to detox. Patient was in detox 11/06/2018 - 11/10/2018 and reports a year of sobriety. He has medical history of asthma, depression and anxiety. Dry mucous membrane and sunken eyes noted. Patient reports recent over dose earlier in September 2018 and is actively withdrawing at this time. Denies suicide attempt or suicidal ideation at this time Exam Limitations: No Limitations - Ebola screening Have you traveled outside of the country in the last 21 days: No Have you had contact with anyone from an Ebola affected area: No Have you been sick,other than usual withdrawal symptoms: No Do you have a fever: No - Review of Systems Constitutional: Chills, Malaise, Changes in sleep, Unintentional Wgt. Loss ( reports about 40 pounds weight loss) EENT: reports: Sinus Pressure Respiratory: reports: No Symptoms reported Cardiac: reports: No Symptoms Reported GI: reports: Nausea, Poor Appetite, Poor Fluid Intake, Abdominal cramping : reports: No Symptoms Reported Musculoskeletal: reports: Muscle Pain, Other (bilateral leg pain) Integumentary: reports: Dryness, Flushing Neuro: reports: Headache, Tremors, Weakness Endocrine: reports: No Symptoms Reported Hematology: reports: No Symptoms Reported Psychiatric: reports: Orientated x3, Agitated, Anxious, Depressed Other Systems: Reviewed and Negative Patient History - Patient Medical History Hx Anemia: No Hx Asthma: Yes (Albuterol inhaler) Hx Chronic Obstructive Pulmonary Disease (COPD): No Hx Cancer: No Hx Cardiac Disorders: No Hx Congestive Heart Failure: No Hx Hypertension: No Hx Hypercholesterolemia: No Hx Pacemaker: No HX Cerebrovascular Accident: No Hx Seizures: No Hx Dementia: No Hx Diabetes: No Hx Gastrointestinal Disorders: No Hx Liver Disease: No Hx Genitourinary Disorders: No Hx Sexually Transmitted Disorders: No Hx Renal Disease (ESRD): No Hx Thyroid Disease: No Hx Human Immunodeficiency Virus (HIV): No (Negative 09/03) Hx Hepatitis C: No Hx Depression: Yes (Not on medication) Hx Suicide Attempt: No Hx Bipolar Disorder: Yes Hx Schizophrenia: No Other Medical History: Anxiety - Not on medication - Patient Surgical History Past Surgical History: No Hx Neurologic Surgery: No Hx Cataract Extraction: No Hx Cardiac Surgery: No Hx Lung Surgery: No Hx Abdominal Surgery: No Hx Appendectomy: No Hx Cholecystectomy: No Hx Genitourinary Surgery: No Hx Orthopedic Surgery: No Anesthesia Reaction: No - PPD History Documented Results: Negative w/proof Date: 11/08/18 Results: 0 mm PPD to be Administered?: No - Reproductive History Patient is a Female of Child Bearing Age (11 -55 yrs old): No (Male) - Smoking Cessation Smoking history: Current every day smoker Have you smoked in the past 12 months: Yes Aproximately how many cigarettes per day: 10 Hx Chewing Tobacco Use: No Initiated information on smoking cessation: No - Substance & Tx. History Hx Alcohol Use: No Hx Substance Use: Yes Substance Use Type: Cocaine, Heroin, Marijuana, Opiates Hx Substance Use Treatment: Yes ([facility] 11/06/2018- 11/10/2018) - Substances abused Heroin Substance route: Inhalation Frequency: Daily Amount used: 10 bags Age of first use: 19 Date of last use: 11/18/18 Alprazolam (Xanax) Substance route: Oral Frequency: Daily Amount used: 4 mg Age of first use: 15 Date of last use: 11/06/18 Crack Substance route: Smoking Frequency: Daily Amount used: $100 Age of first use: 18 Date of last use: 11/18/18 Family Disease History - Family Disease History Family Disease History: Heart Disease: Father (living, HTN, hx etoh), Other: Father, Mother (living, healthy, ), Brother (one - living - healthy), Sister ( one - living - healthy), Daughter (two - living - healthy) Admission Physical Exam BHS - Vital Signs Vital Signs: Vital Signs - 24 hr 11/19/18 11/19/18 18:47 21:00 Temperature 97.6 F 97.6 F Pulse Rate 93 H 93 H Respiratory 18 18 Rate Blood Pressure 108/75 108/75 - Physical General Appearance: Yes: Severe Distress, Tremorous, Sweating, Anxious HEENTM: Yes: Normal ENT Inspection, Normal Voice, CLARA Respiratory: Yes: Lungs Clear, Normal Breath Sounds, No Respiratory Distress Neck: Yes: Supple Breast: Yes: Breast Exam Deferred Cardiology: Yes: Tachycardia Abdominal: Yes: Normal Bowel Sounds Genitourinary: Yes: Within Normal Limits Back: Yes: Normal Inspection Musculoskeletal: Yes: Muscle Pain, Other (bilateral leg pain) Extremities: Yes: Tremors Neurological: Yes: Alert, Normal Mood/Affect Integumentary: Yes: Pale Lymphatic: Yes: Within Normal Limits - Diagnostic (1) Depression Current Visit: Yes Status: Chronic Qualifiers: Depression Type: unspecified Qualified Code(s): F32.9 - Major depressive disorder, single episode, unspecified (2) Opioid dependence with withdrawal Current Visit: Yes Status: Chronic (3) Anxiety Current Visit: No Status: Chronic (4) Asthma Current Visit: Yes Status: Chronic Qualifiers: Asthma severity: mild Asthma persistence: intermittent Asthma complication type: uncomplicated Qualified Code(s): J45.20 - Mild intermittent asthma, uncomplicated (5) Benzodiazepine dependence Current Visit: Yes Status: Chronic (6) Cocaine dependence Current Visit: Yes Status: Chronic Qualifiers: Substance use status: uncomplicated Qualified Code(s): F14.20 - Cocaine dependence, uncomplicated (7) Weight loss Current Visit: Yes Status: Chronic (8) Dehydration Current Visit: Yes Status: Chronic Cleared for Admission [facility] - Detox or Rehab [facility] Level of Care: Medically Managed Detox Regimen/Protocol: Methadone/Valium Breathalyzer - Breathalyzer Breathalyzer: 0 Urine Drug Screen - Test Device Lot number: [id number] Expiration date: 06/15/19 - Control Is test valid?: Yes - Results Drug screen NEGATIVE: No Urine drug screen results: AMINA-Cocaine, FEN-Fentanyl, MOP-Opiates, MTD-Methadone , BZO-Benzodiazepines, BUP-Suboxone Inpatient Rehab Admission - Rehab Decision to Admit Inpatient rehab admission?: No
[2018-11-19] MEDS ORDERED: BISMUTH SUBSALICYLATE 524 MG/30 ML UD PO PRN (21:58)
[2018-11-19] MEDS ORDERED: MAGNESIUM CITRATE 300 ML BOTTLE PO PRN (21:58)
[2018-11-19] MEDS ORDERED: MAG HYDROX/AL HYDROX/SIMETH 30 ML UNIT-DOSE CUP PO PRN (21:58)
[2018-11-19] MEDS ORDERED: MAGNESIUM HYDROX 2400MG/30ML ORAL SUSPENSION 30 ML CUP PO PRN (21:58)
[2018-11-19] MEDS ORDERED: METHOCARBAMOL 500 MG TABLET PO PRN (21:58)
[2018-11-19] MEDS ORDERED: IBUPROFEN 400 MG TABLET (FP) PO PRN (21:58)
[2018-11-19] MEDS ORDERED: MENTHOL/PHENOL 1 EACH UD MM PRN (21:58)
[2018-11-19] MEDS ORDERED: ACETAMINOPHEN 325 MG TABLET (FP) PO PRN ×2 (21:58)
[2018-11-19] MEDS ORDERED: hydrOXYzine PAMOATE 25 MG CAPSULE (FP) PO PRN (21:58)
[2018-11-19] MEDS: THIAMINE HCL 100 MG TABLET (FP) PO SCH (22:44)
[2018-11-19] MEDS: diazePAM 5 MG TABLET PO SCH (22:45)
[2018-11-19] MEDS ORDERED: METHADONE HCL 10 MG TABLET (FOR DETOX USE ONLY) PO ONE (23:00)
[2018-11-20] MEDS: diazePAM 5 MG TABLET PO SCH ×3 (05:38→22:10)
[2018-11-20] MEDS ORDERED: METHADONE HCL 10 MG TABLET (FOR DETOX USE ONLY) PO ONE (10:00)
[2018-11-20] MEDS: diazePAM 5 MG TABLET PO PRN (10:02)
[2018-11-20] MEDS: PRENATAL VITAMINS W/ FOLIC ACID TABLET (FP) PO SCH (10:03)
[2018-11-20 10:14] LABS: ALBUMIN 3.2 g/dl (3.4-5.0); ALK PHOS 79 U/L (45-117); ANION GAP 3 MMOL/L (8-16); BILIRUBIN,TOTAL 1.3 mg/dL (0.2-1); BLOOD UREA NITROGEN 15 mg/dL (7-18); CALCIUM 8.8 mg/dL (8.5-10.1); CHLORIDE 106 mmol/L (98-107); CO2 30 mmol/L (21-32); CREATININE 0.9 mg/dL (0.55-1.3); GLUCOSE,RANDOM 80 mg/dL (74-106); POTASSIUM 4.3 mmol/L (3.5-5.1); SGOT/AST 11 U/L (15-37); SGPT/ALT 33 U/L (13-61); SODIUM 139 mmol/L (136-145); TOT PROT 5.8 g/dl (6.4-8.2)
[2018-11-20 10:23] LABS: HEMATOCRIT 40.8 % (35.4-49); HEMOGLOBIN 13.6 GM/dL (11.7-16.9); MCH 31.5 pg (25.7-33.7); MCHC 33.5 g/dl (32.0-35.9); MEAN CELL VOLUME 94.1 fl (80-96); MEAN PLT VOLUME 9.1 fl (7.5-11.1); PLATELET COUNT 204 K/MM3 (134-434); RBC 4.33 M/mm3 (4.00-5.60); RDW 13.6 % (11.9-15.9); WHITE BLOOD COUNT 7.5 K/mm3 (4.0-10.0)
--- NOTE | 2018-11-20 10:24 | PN ---
[facility] CIWA - CIWA Score Nausea/Vomitin-Mild Nausea/No Vomiting Muscle Tremors: 3 Anxiety: 3 Agitation: 3 Paroxysmal Sweats: 1-Minimal Palms Moist Orientation: 2-Disoriented Date<2 days Tacttile Disturbances: 0-None Auditory Disturbances: 0-None Visual Disturbances: 0-None Headache: 2-Mild CIWA-Ar Total Score: 15 BHS COWS - Scale Resting Pulse: 1= [place] 81-100 Sweatin= Chills/Flushing Restless Observation: 0= Sits Still Pupil Size: 0= Normal to Room Light Bone or Joint Aches: 1= Mild Discomfort Runny Nose/ Eye Tearin= Nasal Congestion GI Upset > 30mins: 2= Nausea/Diarrhea Tremor Observation of Outstretched Hands: 2= Slight Tremor Visible Yawning Observation: 2= >3x During Session Anxiety or Irritability: 2=Irritable/Anxious Goose Flesh Skin: 3=Piloerection COWS Score: 15 [facility] Progress Note (SOAP) Subjective: tired low energy preferring to stay in bed resting Objective: 11/20/18 10:23 Vital Signs Temperature 98.0 F 11/20/18 09:10 Pulse Rate 82 11/20/18 09:10 Respiratory Rate 18 11/20/18 09:10 Blood Pressure 105/62 11/20/18 09:10 O2 Sat by Pulse Oximetry (%) Laboratory Last Values Sodium 139 mmol/L (136-145) 11/20/18 07:00 Potassium 4.3 mmol/L (3.5-5.1) 11/20/18 07:00 Chloride 106 mmol/L (98-107) 11/20/18 07:00 Carbon Dioxide 30 mmol/L (21-32) 11/20/18 07:00 Anion Gap 3 MMOL/L (8-16) L 11/20/18 07:00 BUN 15 mg/dL (7-18) 11/20/18 07:00 Creatinine 0.9 mg/dL (0.55-1.3) 11/20/18 07:00 Creat Clearance w eGFR 97.79 (>60) 11/20/18 07:00 Random Glucose 80 mg/dL (74-106) 11/20/18 07:00 Calcium 8.8 mg/dL (8.5-10.1) 11/20/18 07:00 Total Bilirubin 1.3 mg/dL (0.2-1) H 11/20/18 07:00 AST 11 U/L (15-37) L 11/20/18 07:00 ALT 33 U/L (13-61) 11/20/18 07:00 Alkaline Phosphatase 79 U/L (45-117) 11/20/18 07:00 Total Protein 5.8 g/dl (6.4-8.2) L 11/20/18 07:00 Albumin 3.2 g/dl (3.4-5.0) L 11/20/18 07:00 lab noted Assessment: 11/20/18 10:23 benzo and opiate withdrawal sx Plan: continue detox
[2018-11-20] MEDS: THIAMINE HCL 100 MG TABLET (FP) PO SCH (22:10)
[2018-11-20] MEDS: MELATONIN 5 MG TABLETS PO PRN (22:11)
[2018-11-20] MEDS: cloNIDine HCL 0.1 MG TABLET PO PRN (22:11)
[2018-11-21] MEDS: diazePAM 5 MG TABLET PO PRN ×3 (06:25→17:19)
[2018-11-21] MEDS ORDERED: METHADONE HCL 10 MG TABLET (FOR DETOX USE ONLY) PO ONE (10:00)
[2018-11-21] MEDS: PRENATAL VITAMINS W/ FOLIC ACID TABLET (FP) PO SCH (10:04)
[2018-11-21] MEDS: diazePAM 5 MG TABLET PO SCH ×2 (10:05→22:05)
--- NOTE | 2018-11-21 13:43 | PN ---
S CIWA - CIWA Score Nausea/Vomitin-No Nausea/No Vomiting Muscle Tremors: 3 Anxiety: 4-Mod. Anxious/Guarded Agitation: 2 Paroxysmal Sweats: 2 Orientation: 0-Oriented Tacttile Disturbances: 0-None Auditory Disturbances: 0-None Visual Disturbances: 2-Mild Sensitivity Headache: 3-Moderate CIWA-Ar Total Score: 16 BHS COWS - Scale Resting Pulse: 0= [place] 80 or Below Sweatin= Chills/Flushing Restless Observation: 0= Sits Still Pupil Size: 0= Normal to Room Light Bone or Joint Aches: 2= Severe Diffuse Aches Runny Nose/ Eye Tearin= None GI Upset > 30mins: 0= None Tremor Observation of Outstretched Hands: 2= Slight Tremor Visible Yawning Observation: 1= 1-2x During Session Anxiety or Irritability: 4=Extreme Anxiety Goose Flesh Skin: 0=Smooth Skin COWS Score: 10 BHS Progress Note (SOAP) Subjective: Sweating, Body Aches, Tremors, H/A, Anxious, Interrupted Sleep. Objective: PATIENT A & O X 3, OBSERVED AMBULATING ON UNIT UNASSISTED. IN NO ACUTE DISTRESS. 11/21/18 13:42 Vital Signs Temperature 96.7 F L 11/21/18 13:19 Pulse Rate 80 11/21/18 13:19 Respiratory Rate 18 11/21/18 13:19 Blood Pressure 106/67 11/21/18 13:19 O2 Sat by Pulse Oximetry (%) Laboratory Tests 11/20/18 11/20/18 11/20/18 07:00 07:00 07:00 WBC 7.5 RBC 4.33 Hgb 13.6 Hct 40.8 MCV 94.1 MCH 31.5 MCHC 33.5 RDW 13.6 Plt Count 204 D MPV 9.1 Sodium 139 Potassium 4.3 Chloride 106 Carbon Dioxide 30 Anion Gap 3 L BUN 15 Creatinine 0.9 Creat Clearance w eGFR 97.79 Random Glucose 80 Calcium 8.8 Total Bilirubin 1.3 H AST 11 L ALT 33 Alkaline Phosphatase 79 Total Protein 5.8 L Albumin 3.2 L RPR Titer Nonreactive LABS NOTED. Assessment: 11/21/18 13:43 WITHDRAWAL SYMPTOMS. Plan: CONTINUE DETOX. INCREASE DAILY PO FLUID / WATER INTAKE.
--- NOTE | 2018-11-21 20:05 | CONSULT ---
[facility] Psychiatric Consult - Data Date of interview: 11/21/18 Admission source: [facility] Identifying data: This is one of several admissions to [facility] for this 32 y/ o male self-referred for detoxification (heroin, cocaine, cannabis, benzodiazepine). Examined on . Patient is single, no children (claimed one dependent at a previous encounter with MD on 11/07/18), domiciled, unemployed and supported by friends/relatives. Substance Abuse History: Discussed in interview. Patient confirmed [facility] report as accurate about his substances of addiction. Details in current [facility] report as follows : Smoking history: Current every day smoker. Have you smoked in the past 12 months: Yes. Aproximately how many cigarettes per day: 10. Hx Chewing Tobacco Use: No. Initiated information on smoking cessation: No. - Substance & Tx. History. Hx Alcohol Use: No. Hx Substance Use: Yes. Substance Use Type : Cocaine, Heroin, Marijuana, Opiates. Hx Substance Use Treatment: Yes ([facility] - 11/10/2018). - Substances abused. Heroin. Substance route: Inhalation. Frequency: Daily. Amount used: 10 bags. Age of first use: 19. Date of last use: 11/18/18. Alprazolam (Xanax). Substance route: Oral. Frequency: Daily. Amount used: 4 mg. Age of first use: 15. Date of last use: 11/06/18. Crack. Substance route: Smoking. Frequency: Daily. Amount used : $100. Age of first use: 18. Date of last use: 11/18/18 Medical History: Bronchial asthma. Psychiatric History: No reported history of psychiatric hospitalizations. Patient declares the diagnosis of Anxiety Disorder. He sees Dr Dietrich in the [place] for medication management (seroquel 100 mg/hs). Chronically non-adherent to aftercare. Mr Lopez denies history of suicide attempts. Physical/Sexual Abuse/Trauma History: No history. Additional Comment: Urine drug screen results: AMINA-Cocaine, FEN-Fentanyl, MOP- Opiates, MTD-Methadone, BZO-Benzodiazepines, BUP-Suboxone. Noted. Mental Status Exam - Mental Status Exam Alert and Oriented to: Time, Place Cognitive Function: Good Patient Appearance: Well Groomed Mood: Nervous, Withdrawn, Anxious Affect: Mood Congruent, Constricted Patient Behavior: Fatigued, Appropriate, Cooperative Speech Pattern: Clear Voice Loudness: Normal Thought Process: Goal Oriented Thought Disorder: Not Present Hallucinations: Denies Suicidal Ideation: Denies Homicidal Ideation: Denies Insight/Judgement: Poor Sleep: Poorly, Difficulty falling asleep Appetite: Good Muscle strength/Tone: Normal Gait/Station: Normal Psychiatric Findings - Problem List ([place] 1, 2,3) (1) Alcohol dependence with uncomplicated withdrawal Current Visit: Yes Status: Acute (2) Opioid dependence with withdrawal Current Visit: Yes Status: Acute (3) Benzodiazepine dependence Current Visit: Yes Status: Chronic (4) Cocaine dependence Current Visit: Yes Status: Chronic Qualifiers: Substance use status: uncomplicated Qualified Code(s): F14.20 - Cocaine dependence, uncomplicated (5) Nicotine dependence Current Visit: Yes Status: Chronic Qualifiers: Nicotine product type: cigarettes Substance use status: uncomplicated Qualified Code(s): F17.210 - Nicotine dependence, cigarettes, uncomplicated (6) Substance induced mood disorder Current Visit: Yes Status: Chronic (7) Insomnia Current Visit: Yes Status: Chronic Qualifiers: Insomnia type: unspecified Qualified Code(s): G47.00 - Insomnia, unspecified (8) Non-compliance Current Visit: Yes Status: Chronic - Initial Treatment Plan Initial Treatment Plan: Psychoeducation. Sleep hygiene. Detoxification. Seroquel 100 mg po hs. Resumed. Side effects/benefits discussed with the patient. Consent (verbal) given to MD. [place].
[2018-11-21] MEDS ORDERED: QUEtiapine FUMARATE 100 MG TABLET (FP) PO SCH (22:00)
[2018-11-21] MEDS: THIAMINE HCL 100 MG TABLET (FP) PO SCH (22:05)
[2018-11-21] MEDS: cloNIDine HCL 0.1 MG TABLET PO PRN (22:05)
[2018-11-21] MEDS: MELATONIN 5 MG TABLETS PO PRN (22:06)
[2018-11-22] MEDS ORDERED: diazePAM 5 MG TABLET PO SCH (06:00)
[2018-11-22] MEDS ORDERED: METHADONE HCL 10 MG TABLET (FOR DETOX USE ONLY) PO ONE (10:00)
[2018-11-22] MEDS: PRENATAL VITAMINS W/ FOLIC ACID TABLET (FP) PO SCH (10:11)
--- NOTE | 2018-11-22 12:42 | PN ---
[facility] CIWA - CIWA Score Nausea/Vomitin-Mild Nausea/No Vomiting Muscle Tremors: 3 Anxiety: 2 Agitation: 3 Paroxysmal Sweats: 1-Minimal Palms Moist Orientation: 0-Oriented Tacttile Disturbances: 0-None Auditory Disturbances: 0-None Visual Disturbances: 0-None Headache: 2-Mild CIWA-Ar Total Score: 12 BHS COWS - Scale Resting Pulse: 1= MN 81-100 Sweatin= Chills/Flushing Restless Observation: 0= Sits Still Pupil Size: 0= Normal to Room Light Bone or Joint Aches: 1= Mild Discomfort Runny Nose/ Eye Tearin= Nasal Congestion GI Upset > 30mins: 1= Stomach Cramp Tremor Observation of Outstretched Hands: 1= Tremor [place], Not Seen Yawning Observation: 1= 1-2x During Session Anxiety or Irritability: 1=Feels Anxious/Irritable Goose Flesh Skin: 0=Smooth Skin COWS Score: 8 S Progress Note (SOAP) Subjective: feeling better today mild anxious less body aches discuss aftercare with staff Objective: 11/22/18 12:41 Vital Signs Temperature 97.8 F 11/22/18 09:00 Pulse Rate 81 11/22/18 09:00 Respiratory Rate 18 11/22/18 09:00 Blood Pressure 101/54 L 11/22/18 09:00 O2 Sat by Pulse Oximetry (%) Laboratory Last Values WBC 7.5 K/mm3 (4.0-10.0) 11/20/18 07:00 RBC 4.33 M/mm3 (4.00-5.60) 11/20/18 07:00 Hgb 13.6 GM/dL (11.7-16.9) 11/20/18 07:00 Hct 40.8 % (35.4-49) 11/20/18 07:00 MCV 94.1 fl (80-96) 11/20/18 07:00 MCH 31.5 pg (25.7-33.7) 11/20/18 07:00 MCHC 33.5 g/dl (32.0-35.9) 11/20/18 07:00 RDW 13.6 % (11.9-15.9) 11/20/18 07:00 Plt Count 204 K/MM3 (134-434) D 11/20/18 07:00 MPV 9.1 fl (7.5-11.1) 11/20/18 07:00 Sodium 139 mmol/L (136-145) 11/20/18 07:00 Potassium 4.3 mmol/L (3.5-5.1) 11/20/18 07:00 Chloride 106 mmol/L (98-107) 11/20/18 07:00 Carbon Dioxide 30 mmol/L (21-32) 11/20/18 07:00 Anion Gap 3 MMOL/L (8-16) L 11/20/18 07:00 BUN 15 mg/dL (7-18) 11/20/18 07:00 Creatinine 0.9 mg/dL (0.55-1.3) 11/20/18 07:00 Creat Clearance w eGFR 97.79 (>60) 11/20/18 07:00 Random Glucose 80 mg/dL (74-106) 11/20/18 07:00 Calcium 8.8 mg/dL (8.5-10.1) 11/20/18 07:00 Total Bilirubin 1.3 mg/dL (0.2-1) H 11/20/18 07:00 AST 11 U/L (15-37) L 11/20/18 07:00 ALT 33 U/L (13-61) 11/20/18 07:00 Alkaline Phosphatase 79 U/L (45-117) 11/20/18 07:00 Total Protein 5.8 g/dl (6.4-8.2) L 11/20/18 07:00 Albumin 3.2 g/dl (3.4-5.0) L 11/20/18 07:00 RPR Titer Nonreactive (NONREACTIVE) 11/20/18 07:00 lab noted Assessment: 11/22/18 12:41 mild benzo and alcohol withdrawal sx Plan: continue detox
[2018-11-22 13:43] VITALS: BP 103/62; PULSE 82; TEMP 96.8
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
[2018-11-23] MEDS ORDERED: METHADONE HCL 5 MG TABLET (FOR DETOX USE ONLY) PO ONE (06:00)
== END 2018-11-22 15:32 | disposition home or self-care (01) | DRG 773 ==
LOC: YASAS 16:26 → Y3N 20:46
PROVIDERS: ADMIT Surgery; ATTEND Surgery
PROC: HZ2ZZZZ Detoxification Services for Substance Abuse Treatment (ICD-10-PCS; principal; 2018-11-19)
DX: F10.230 Alcohol dependence with withdrawal, uncomplicated (principal); F11.23 Opioid dependence with withdrawal; F13.230 Sedative, hypnotic or anxiolytic dependence with withdrawal, uncomplicated; F14.20 Cocaine dependence, uncomplicated; F17.210 Nicotine dependence, cigarettes, uncomplicated; F19.24 Other psychoactive substance dependence with psychoactive substance-induced mood disorder; F31.9 Bipolar disorder, unspecified; F41.9 Anxiety disorder, unspecified; E86.0 Dehydration; J45.20 Mild intermittent asthma, uncomplicated; M54.2 Cervicalgia; M54.6 Pain in thoracic spine; G47.00 Insomnia, unspecified; R63.4 Abnormal weight loss; Z68.1 Body mass index [BMI] 19.9 or less, adult; Z59.0 Homelessness; Z91.19 Patient's noncompliance with other medical treatment and regimen
CPT/HCPCS: 36415; 80053; 85027; 86593; J0735